=== PATIENT | female | born 1965 | race Caucasian/White ===

== ENCOUNTER 2020-10-05 08:18 | Outpatient (REF) | payer MEDICARE, MEDICAID, SELFPAY | END 2020-10-05 08:19 | disposition home or self-care (01) | LOC: HO.HOSX 08:18 | PROVIDERS: Visit Provider Physician Assistant | DX: Z13.89 Encounter for screening for other disorder (principal) ==

== ENCOUNTER 2020-10-12 08:18 | Outpatient (REF) | payer MEDICARE, MEDICAID, SELFPAY ==
--- NOTE | ~2020-10-12 | XR_ITS ---
EXAMINATION: XR HIP, LEFT CLINICAL INFORMATION: Left hip pain COMPARISON: CT from 10/31/2017 TECHNIQUE: Two views of the left hip. AP view of the pelvis. FINDINGS: There is a total left hip arthroplasty with longstem femoral component. The femoral head component articulates appropriately with the acetabular component. No periprosthetic lucency or fracture. The right hip is well aligned with mild degenerative change. There is subchondral sclerosis with small osteophytes. The pelvic rim is intact. The sacroiliac joints and pubic symphysis are intact. The bowel gas pattern is unremarkable. XR/XR hip LT min 2V IMPRESSION: Total left hip arthroplasty without evidence of failure. Mild degenerative changes of the right hip.
--- NOTE | ~2020-10-12 | XR_ITS ---
EXAMINATION: Bilateral knees frontal standing, and right knee CLINICAL INFORMATION: Reason for Exam M25.569 - Pain in unspecified knee COMPARISON: None available at the time of this dictation. TECHNIQUE: Bilateral frontal standing, right knee lateral patella sunrise view. FINDINGS: BONES: No fracture or dislocation is present. JOINTS: Mild narrowing of joint spaces medial compartment suggest mild DJD. SOFT TISSUE: Normal XR/XR knee RT 3V IMPRESSION: Mild DJD. No joint effusion.
== END 2020-10-12 08:19 | disposition home or self-care (01) ==
LOC: HO.HOSX 08:18
PROVIDERS: Visit Provider Physician Assistant
DX: M25.561 Pain in right knee (principal); M25.552 Pain in left hip; M70.62 Trochanteric bursitis, left hip; M25.70 Osteophyte, unspecified joint
CPT/HCPCS: 73502; 73562; 99212

== ENCOUNTER → 2020-10-26 10:33 | Outpatient (BNVA) | payer MEDICARE, MEDICAID, SELFPAY | PROVIDERS: Visit Provider Orthopaedic Surgery | DX: L72.0 Epidermal cyst (principal) | CPT/HCPCS: 99212 ==

== ENCOUNTER 2020-10-30 08:26 | Day surgery (SDC) | payer MEDICARE, MEDICAID, SELFPAY ==
--- NOTE | 2020-10-30 | ECG_ITS ---
Test Reason : ST DEPRESSIONS Blood Pressure : / mmHG Vent. Rate : 070 BPM Atrial Rate : 070 BPM P-R Int : 156 ms QRS Dur : 088 ms QT Int : 408 ms P-R-T Axes : 021 006 213 degrees QTc Int : 440 ms Normal sinus rhythm Left ventricular hypertrophy with repolarization abnormality Abnormal ECG No previous ECGs available Referred By: Dima Hinojosa Electronically Signed By:NOHELIA MCKINNEY MD
--- NOTE | 2020-10-30 08:11 | HO.ANESPROP2 ---
HPI - Anesthesia Eval Consult details Narrative: right knee cyst PMFSH Active Problems Active Problems: All Active Problems (Updated 10/14/20 @ 21:59 by Alcon Lopez PA-C) Bony callus (Acute) Trochanteric bursitis, left hip (Acute) Left hip pain (Acute) Past Medical History Medical History Asthma Hypertension Social History Social History Current occupational status: disabled Current occupation: right hand Meds Allergies Allergy/AdvReac Type Severity Reaction Status Date / Time SILVER Inhibitors Allergy Severe SWELLING Verified 10/26/20 11:20 [SILVER INHIBITORS] ibuprofen [From MOTRIN] Allergy Severe SWELLING Verified 10/26/20 11:20 prednisone [PREDNISONE] Allergy Severe SWELLING Verified 10/26/20 11:20 Silver Inhibitors Allergy Unknown Unknown Uncoded 10/12/20 12:51 Contrast dye Allergy Unknown Unknown Uncoded 10/12/20 12:51 Motrin Allergy Unknown Unknown Uncoded 10/12/20 12:51 Home Medications Medication Instructions Recorded Confirmed Last Taken Type Unobtainable 10/26/20 10/26/20 Unknown History Exam Exam Date and Time: October 30, 2020 0811 Airway Mallampati Class: II TM Dist: >3cm Neck ROM: Full Heart: rrr+s1s2 Lungs: cta b/l Assessment and Plan Assessment Anesthesia Assessment: Anesthesia Plan Discussed, PAT Visit and Chart Reviewed Final Anesthetic Review NPO: Yes ASA Class: II Final Preanesthetic Review: No Changes in Pt Med Stat, Meds/Allgs Chart Reviewed, Consent Obtained/Reviewed and Anes Risks/Benef Reviewed Patient Risk: Low Procedure Risk: Low Assessment/Block/Sedation in SS: Assess/Block/Sedation-SS Anesthetic Plan Anesthetic Plan: GA and Agree w/ Assess. and Plan Disposition: Standard PACU
[2020-10-30 08:40] VITALS: BP 138/82; PULSE 73; RESP 18; TEMP 36.1; O2SAT 97; BMI 32.8
[2020-10-30] MEDS: Lactated Ringers 1,000 ML 50 ML IV (09:12)
--- NOTE | 2020-10-30 09:15 | PC.NURSE ---
pt placed on monitor. Slight st depressions noted. leads in proper placement. pt denies any discomfort. Dr. Hinojosa informed. ekg ordered. pt darlin well. Dr Hinojosa looked at ekg. ok to procede.
--- NOTE | 2020-10-30 10:51 | MHC.SHP ---
Pre-Procedural Eval Section A The patient is an INPATIENT: No Changes since office visit: Yes Patient answered all questions; No Cold of Flu in the past 2 weeks, No New Medical Problems and No Changes in Medication The History & Physical has been completed within 30 days and I have reviewed it.: Yes Section B Chief Complaint: osteophyte Allergies: Allergies Allergy/AdvReac Type Severity Reaction Status Date / Time SILVER Inhibitors Allergy Severe SWELLING Verified 10/26/20 11:20 [SILVER INHIBITORS] ibuprofen [From MOTRIN] Allergy Severe SWELLING Verified 10/26/20 11:20 prednisone [PREDNISONE] Allergy Severe SWELLING Verified 10/26/20 11:20 Contrast dye Allergy Severe Anaphylaxis Uncoded 10/30/20 09:02 Motrin Allergy Severe Swelling Uncoded 10/30/20 09:02 Plan I have reviewed the history and physical and performed a pertinent physical examination on my patient. No changes have occurred unless specified.
[2020-10-30 11:36] VITALS: BP 135/68; PULSE 70; RESP 16; TEMP 36.2; O2SAT 97
--- NOTE | 2020-10-30 11:44 | PM.OP ---
Brief Operative Note Date of Service: 10/30/20 Pre-op diagnosis: right knee cyst Post-op diagnosis: other (right knee bony fragment and associated ganglion cyst) Procedure: removal of bony fragment and cyst excision Implants: none Surgeon: Russ Gutierrez MD Anesthesia: MAC and local Estimated blood loss (mL): 0 Tourniquet time (min): 23 IV fluids (mL): 500 Pathology: other Condition: stable Disposition: PACU
[2020-10-30] MEDS: oxyCODONE HCl Immed Release 5 MG TABLET 10 MG PO (11:47)
--- NOTE | 2020-10-30 11:49 | W.PM.OPN ---
Operative Note Operative Note Date of Service: 10/30/20 Narrative: Pre-op diagnosis: right knee cyst Post-op diagnosis: other (right knee bony fragment and associated ganglion cyst) Procedure: removal of bony fragment and cyst excision Implants: none Surgeon: Russ Gutierrez MD Anesthesia: MAC and local Estimated blood loss (mL): 0 Tourniquet time (min): 23 IV fluids (mL): 500 Pathology: other Condition: stable Disposition: PACU Procedure in detail: Patient was brought to the operating room and placed supine on the surgical table. She was prepped and draped in standard sterile fashion and a time out was called to identify proper site, proper procedure and IV antibiotics per weight were administered. I began by insufflating the tourniquet to 300 mm Hg. A 1 cm incision was made over the right knee cyst after 1/4 marcaine with epinephrine was administered. Once through the skin I used a Littler's scissor to dissect the stalk of the cyst down to the patellar tendon at its insertion to the patella. There were several small previously avulsed bony fragments that had healed at this site. These were removed along with the cyst wall/fibrous material. The fibers of the patellar tendon were visible but not violated. I irrigated copiously once I felt all bony fragments and extraneous soft tissue was removed. I then closed a soft tissue layer over the are of exposed tendon as the paratenon was no longer present. I then closed the skin with running prolene and skin glue. I injected an additional 6 ml of 1/4 marcaine with epi and then sterile dressings were applied. Patient was awakened from anesthesia and brought to the recovery room in stable condition. There were no known complications.
[2020-10-30 11:51] VITALS: BP 109/67; PULSE 65; RESP 16; O2SAT 99
[2020-10-30 12:06] VITALS: BP 116/70; PULSE 67; RESP 16; O2SAT 99
== END 2020-10-30 13:04 | disposition home or self-care (01) ==
PROVIDERS: PCP Internal Medicine; Visit Provider Orthopaedic Surgery
PROC: (CPT 27347; principal; 2020-10-30 09:50)
DX: M23.41 Loose body in knee, right knee (principal); M25.761 Osteophyte, right knee; M67.461 Ganglion, right knee; Z87.81 Personal history of (healed) traumatic fracture; J45.909 Unspecified asthma, uncomplicated; I10 Essential (primary) hypertension; Z79.82 Long term (current) use of aspirin; Z79.51 Long term (current) use of inhaled steroids; Z79.899 Other long term (current) drug therapy; Z88.8 Allergy status to other drugs, medicaments and biological substances; Z91.041 Radiographic dye allergy status; Z96.642 Presence of left artificial hip joint
CPT/HCPCS: 27347; 88304; 88311; 93005; J0690; J2250; J3010

== ENCOUNTER → 2020-11-16 12:48 | Outpatient (BNVA) | payer MEDICARE, MEDICAID, SELFPAY | PROVIDERS: Visit Provider Physician Assistant | DX: Z47.89 Encounter for other orthopedic aftercare (principal); Z98.890 Other specified postprocedural states | CPT/HCPCS: 99212 ==

== ENCOUNTER → 2021-10-29 12:02 | Outpatient (BNVA) | payer OTHER, MEDICAID, SELFPAY | PROVIDERS: Visit Provider Psychiatry & Neurology Neurology | DX: G43.019 Migraine without aura, intractable, without status migrainosus (principal) | CPT/HCPCS: 64615; 99211; J0585 ==

== ENCOUNTER 2021-11-25 08:51 | Outpatient (REF) | payer OTHER, MEDICARE, MEDICAID, SELFPAY ==
--- NOTE | ~2021-11-25 | XR_ITS ---
EXAMINATION: KNEE X-RAY CLINICAL INFORMATION: Pain COMPARISON: Previous right knee x-ray October 2020 TECHNIQUE: Standing AP view of both knees and lateral and sunrise view of the right knee FINDINGS: Right: Bone alignment is normal. No fracture or dislocation is seen. There is lateral meniscal calcification. There are small osteophytes at the patellofemoral joint. There is an osteophyte at the quadriceps tendon insertion to the patella. There may be slight lateral tilt of the patella. There is no joint effusion. Standing AP view of the left knee is demonstrate an intramedullary jasmin in the left femoral shaft. XR/XR knee standing BI IMPRESSION: Right knee: Mild degenerative changes.
--- NOTE | ~2021-11-25 | XR_ITS ---
EXAMINATION: KNEE X-RAY CLINICAL INFORMATION: Pain COMPARISON: Previous right knee x-ray October 2020 TECHNIQUE: Standing AP view of both knees and lateral and sunrise view of the right knee FINDINGS: Right: Bone alignment is normal. No fracture or dislocation is seen. There is lateral meniscal calcification. There are small osteophytes at the patellofemoral joint. There is an osteophyte at the quadriceps tendon insertion to the patella. There may be slight lateral tilt of the patella. There is no joint effusion. Standing AP view of the left knee is demonstrate an intramedullary jasmin in the left femoral shaft. XR/XR knee RT 2V IMPRESSION: Right knee: Mild degenerative changes.
== END 2021-11-25 08:52 | disposition home or self-care (01) ==
LOC: HO.HOSX 08:51
PROVIDERS: Visit Provider Physician Assistant
DX: S80.01XD Contusion of right knee, subsequent encounter (principal)
CPT/HCPCS: 73560; 73565; 99212

== ENCOUNTER → 2022-02-19 10:56 | Outpatient (BNVA) | payer MEDICARE, MEDICAID, SELFPAY | PROVIDERS: Visit Provider Psychiatry & Neurology Neurology | DX: G43.109 Migraine with aura, not intractable, without status migrainosus (principal); G43.119 Migraine with aura, intractable, without status migrainosus | CPT/HCPCS: 64615; J0585 ==

== ENCOUNTER → 2022-05-14 14:59 | Outpatient (BNVA) | payer MEDICARE, MEDICAID, SELFPAY | PROVIDERS: Visit Provider Psychiatry & Neurology Neurology | DX: G43.119 Migraine with aura, intractable, without status migrainosus (principal); S13.4XXA Sprain of ligaments of cervical spine, initial encounter | CPT/HCPCS: 99212 ==

== ENCOUNTER 2022-05-23 07:15 | Outpatient (REF) | payer MEDICARE, MEDICAID, SELFPAY | END 2022-05-23 07:16 | disposition home or self-care (01) | LOC: HO.HOSX 07:15 | PROVIDERS: Visit Provider Physician Assistant | DX: Z13.89 Encounter for screening for other disorder (principal) ==

== ENCOUNTER → 2022-05-28 11:12 | Outpatient (BNVA) | payer MEDICARE, MEDICAID, SELFPAY | PROVIDERS: PCP Internal Medicine; Visit Provider Nurse Practitioner Family | DX: G43.119 Migraine with aura, intractable, without status migrainosus (principal); S13.4XXA Sprain of ligaments of cervical spine, initial encounter | CPT/HCPCS: 99212 ==

== ENCOUNTER → 2022-06-24 10:17 | Outpatient (BNVA) | payer MEDICARE, MEDICAID, SELFPAY | PROVIDERS: PCP Internal Medicine; Visit Provider Psychiatry & Neurology Neurology | DX: G43.709 Chronic migraine without aura, not intractable, without status migrainosus (principal) | CPT/HCPCS: 64615; 99211; J0585 ==

== ENCOUNTER → 2022-09-22 14:47 | Outpatient (BNVA) | payer MEDICARE, MEDICAID, SELFPAY | PROVIDERS: PCP Internal Medicine; Visit Provider Psychiatry & Neurology Neurology | DX: G43.119 Migraine with aura, intractable, without status migrainosus (principal); G43.109 Migraine with aura, not intractable, without status migrainosus | CPT/HCPCS: 64615; 99211; J0585 ==

== ENCOUNTER 2022-09-29 14:24 | Outpatient (REF) | payer MEDICARE, MEDICAID, SELFPAY | END 2022-09-29 14:25 | disposition home or self-care (01) | LOC: HO.HOSX 14:24 | PROVIDERS: Visit Provider Physician Assistant | DX: Z13.89 Encounter for screening for other disorder (principal) ==

== ENCOUNTER 2023-01-12 12:33 | Outpatient (AMB) | payer MEDICARE, MEDICAID, SELFPAY ==
--- NOTE | 2023-01-12 12:35 | MHC.OFFVIS ---
Intake Vital Signs 01/12/23 12:36 Height 5 ft Weight 167 lb BMI 32.6 BP 130/84 Blood Pressure Location Rt brachial Position Sitting Pulse 68 Pulse Source Pulse Oximeter Pulse Oximetry (%) 98 Oxygen Delivery Method Room Air Intake Visit Reasons: Botox Intake Note: Patient presents for botox injection. Allergies SILVER Inhibitors [SILVER INHIBITORS] Allergy (Severe, Verified 01/12/23 12:37) SWELLING ibuprofen [From MOTRIN] Allergy (Severe, Verified 01/12/23 12:37) SWELLING prednisone [PREDNISONE] Allergy (Severe, Verified 01/12/23 12:37) SWELLING Contrast dye Allergy (Severe, Uncoded 01/12/23 12:37) Anaphylaxis Motrin Allergy (Severe, Uncoded 01/12/23 12:37) Swelling Medication List - Last Reconciled 01/12/23 by Martha Torres MD albuterol sulfate 90 mcg/actuation (ProAir HFA) inhalation cholecalciferol (vitamin D3) 1 cap PO DAILY clonidine HCl 0.1 mg PO DAILY PRN duloxetine mg PO ferrous sulfate 1 tab PO DAILY fluticasone propionate 50 mcg/actuation intranasal hydrochlorothiazide 1 tab PO QAM losartan 1 tab PO DAILY metoprolol tartrate 1 tab PO DAILY omeprazole 1 cap PO DAILY paroxetine HCl 1 tab PO QAM HPI HPI Comments History of Present Illness Details ? 57y/o female comes for treatment of migraines with botox. she had 20-25 headaches days/month prior to starting botox. Since treatment with botox the migraine days have decrease dto 5/month ??? Most frequent reported adverse reactions following injectio n of botox for chronic migraine include neck pain (9%), headache(5%), eyelid ptosis(4%), migraine(4%), muscular weakness(4%), musculuskeletal stiffness(4%), bronchitis(3%), injection site pain (3%), musculoskeletal pain(3%), myalgia(3%), facial paresis(2%), HTN(2%) and muscle spasms(2%) were discussed in detail. ??? Botulinum toxin typeA 200units Lot no [id number] expiration Aug 2025 was diluted with 4 cc of normal saline . ??? Muscles injected- ??? Frontalis 4 sites ??? Procerus 1 site ??? Manager Investment- 2 sites ??? Temporalis- 8 sites ??? Occipitalis- 6 sites ??? Cervical paraspinals- 4 sites ??? Trapezius- 6 sites- 10 units each ??? 5 units each in 31 site ??? Total use- 185units ??? Discarded-15units [facility] Medical History (Updated 01/12/23 @ 13:02 by Martha Torres MD) Asthma Chronic migraine without aura Hypertension Surgical History History of left hip replacement Status post arthroscopy of right shoulder Social History Alcohol intake: never Patient Tobacco Use Status: Never used Tobacco Current occupational status: disabled Current occupation: right hand Physical Exam Vital Signs: Last Vital Signs Pulse 68 01/12/23 12:36 BP 130/84 01/12/23 12:36 Pulse Ox 98 01/12/23 12:36 Oxygen Delivery Method Room Air 01/12/23 12:36 BMI result Body Mass Index 32.6 Const General: cooperative, healthy appearing and no acute distress Orientation/consciousness: patient oriented x3 HEENT Other: tenderness in right parietal and temporal region , pain when she opens her mouth Eyes Pupils: Equal, round and reactive pupils present Neck Other: tenderness in right neck, limited lateral neck movement due to pain. Resp Effort & Inspection: normal respiratory effort and able to speak in complete sentences Cardio Rate: regular rate Peripheral pulses: Peripheral pulses 2+ throughout GI Palpation (GI): Soft to palpation Skin Lesions: no lesions Rashes: no rashes Neuro General: patient oriented x3, tone normal and moves all extremities Cranial nerves: Yes Equal, round and reactive pupils present, Yes Nystagmus not present and Yes Normal facial strength present Gait exam (Neuro): Normal gait present Motor exam (neuro): 5/5 motor strength present throughout and Normal motor muscle tone present throughout Office Procedures Botulinum toxin Injection 16407 - Migraine Procedure code (CPT) selection complete Office Meds onabotulinumtoxinA Performing Provider: Martha Torres MD Administered by: Martha Torres MD on 01/12/23 13:05 Dose Route Admin Location Lot Number Expiration Date [employer] 200 unit subcut [id number] 08/06/25 1299-8105-59 [employer]OTOX Comments: see hpi Assessment & Plan Assessment & Plan (1) Migraine with aura, intractable, without status migrainosus: Code(s): G43.119 - Migraine with aura, intractable, without status migrainosus (2) Chronic migraine with aura: Code(s): G43.109 - Migraine with aura, not intractable, without status migrainosus (3) Chronic migraine without aura: Code(s): G43.709 - Chronic migraine without aura, not intractable, without status migrainosus Plan patient tolerated the procedure well she will call with any side effects Orders: Orders AMB Botulinum toxin Injection Today G43.709 - Chronic migraine without aura, not intractable, without status migrainosus Coding Level of Care Code Est Pt Level 1 (58941) Diagnoses Migraine with aura, intractable, without status migrainosus G43.119 Chronic migraine with aura G43.109 Chronic migraine without aura G43.709 CPT Codes Botox Injection - Botox 3: 76049 - Migraine ([id number])
[2023-01-12 12:36] VITALS: BP 130/84; PULSE 68; O2SAT 98; BMI 32.6
== END 2023-01-12 12:56 | disposition home or self-care (01) ==
LOC: HO.HSMS 12:33
PROVIDERS: PCP Internal Medicine; Visit Provider Psychiatry & Neurology Neurology
DX: G43.709 Chronic migraine without aura, not intractable, without status migrainosus (principal)
CPT/HCPCS: 64615

== ENCOUNTER → 2023-01-12 12:33 | Outpatient (BNVA) | payer MEDICARE, MEDICAID, SELFPAY | PROVIDERS: PCP Internal Medicine; Visit Provider Psychiatry & Neurology Neurology | DX: G43.709 Chronic migraine without aura, not intractable, without status migrainosus (principal); I10 Essential (primary) hypertension | CPT/HCPCS: 64615; J0585 ==

== ENCOUNTER → 2023-04-16 13:05 | Outpatient (BNVA) | payer MEDICARE, MEDICAID, SELFPAY | PROVIDERS: PCP Internal Medicine; Visit Provider Psychiatry & Neurology Neurology | DX: G43.709 Chronic migraine without aura, not intractable, without status migrainosus (principal); G43.119 Migraine with aura, intractable, without status migrainosus | CPT/HCPCS: 64615; 99211; J0585 ==

== ENCOUNTER 2023-04-21 11:11 | Outpatient (REF) | payer MEDICARE, MEDICAID, SELFPAY ==
--- NOTE | ~2023-04-21 | XR_ITS ---
EXAMINATION: XR HIP, RIGHT CLINICAL INFORMATION: Pain in the right hip COMPARISON: 04/19/2018 TECHNIQUE: Two views of the right hip an single view of the pelvis. FINDINGS: There is status post total hip replacement on the left was well positioned visualized portion of the prosthesis. Right hip revealed mild degenerative changes with minimal narrowing of the joint space and marginal spurring of acetabulum. There is no fracture or subluxation and no severe changes of osteoarthritis. XR/XR hip RT w PEL1V IMPRESSION: Mild degenerative changes of the right hip joint
== END 2023-04-21 11:12 | disposition home or self-care (01) ==
LOC: HO.HOSX 11:11
PROVIDERS: Visit Provider Physician Assistant
DX: M16.11 Unilateral primary osteoarthritis, right hip (principal)
CPT/HCPCS: 73502; 99212

== ENCOUNTER 2023-04-21 12:49 | Outpatient (AMB) | payer MEDICARE, MEDICAID, SELFPAY ==
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
[2023-04-21 12:56] VITALS: BMI 32.6
== END 2023-04-21 13:50 | disposition home or self-care (01) ==
PROVIDERS: PCP Internal Medicine; Visit Provider Physician Assistant
DX: M16.11 Unilateral primary osteoarthritis, right hip (principal)
CPT/HCPCS: 99214

== ENCOUNTER 2023-04-30 13:29 | Outpatient (REF) | payer MEDICARE, MEDICAID, SELFPAY ==
--- NOTE | ~2023-04-30 | XR_ITS ---
EXAMINATION: XR HAND, RIGHT CLINICAL INFORMATION: Pain in right hand. Pain along first metacarpal. COMPARISON: None available. TECHNIQUE: PA, lateral, and oblique views of the right hand. FINDINGS: Moderate degenerative changes in the first carpometacarpal and metacarpophalangeal joints with joint space narrowing and hypertrophic change. Degenerative changes in the STT joint. Faint soft tissue calcifications adjacent to scattered metacarpal phalangeal and IP joints. Subtle bowing deformity with slight periosteal/cortical reaction along the mid diaphysis of the fifth metacarpal. XR/XR hand RT min 3V IMPRESSION: Scattered degenerative changes as detailed above. No acute displaced fracture. Recommend follow-up imaging in 10-14 days if fracture is suspected.
== END 2023-04-30 13:30 | disposition home or self-care (01) ==
LOC: HO.HOSX 13:29
PROVIDERS: Visit Provider Physician Assistant
DX: M77.8 Other enthesopathies, not elsewhere classified (principal); M18.11 Unilateral primary osteoarthritis of first carpometacarpal joint, right hand
CPT/HCPCS: 73130; 99212

== ENCOUNTER 2023-04-30 14:19 | Outpatient (AMB) | payer MEDICARE, MEDICAID, SELFPAY ==
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
[2023-04-30 14:45] VITALS: BMI 32.6
== END 2023-04-30 15:18 | disposition home or self-care (01) ==
PROVIDERS: PCP Internal Medicine; Visit Provider Physician Assistant
DX: M77.8 Other enthesopathies, not elsewhere classified (principal); M18.11 Unilateral primary osteoarthritis of first carpometacarpal joint, right hand
CPT/HCPCS: 99214

== ENCOUNTER 2023-06-04 14:57 | Outpatient (AMB) | payer MEDICARE, MEDICAID, SELFPAY ==
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
== END 2023-06-04 15:46 | disposition home or self-care (01) ==
PROVIDERS: PCP Internal Medicine; Visit Provider Orthopaedic Surgery
DX: M16.11 Unilateral primary osteoarthritis, right hip (principal)
CPT/HCPCS: 99214

== ENCOUNTER → 2023-06-04 14:57 | Outpatient (BNVA) | payer MEDICARE, MEDICAID, SELFPAY | PROVIDERS: PCP Internal Medicine; Visit Provider Orthopaedic Surgery | DX: M16.11 Unilateral primary osteoarthritis, right hip (principal) | CPT/HCPCS: 99212 ==

== ENCOUNTER 2023-07-20 12:19 | Outpatient (AMB) | payer MEDICARE, MEDICAID, SELFPAY ==
--- NOTE | 2023-07-20 12:56 | A.OFFVIS_ITS ---
Intake Vital Signs 07/20/23 12:58 Height 5 ft Weight 166 lb 2 oz BMI 32.4 BP 138/90 H Blood Pressure Location Lt brachial Position Sitting Respiration 16 Pulse 73 Pulse Source Pulse Oximeter Pulse Oximetry (%) 98 Oxygen Delivery Method Room Air Intake Visit Reasons: Botox - Confirmed Intake Note: Pt presents to the office for her Botox injections. 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: No Allergies SILVER Inhibitors [SILVER INHIBITORS] Allergy (Severe, Verified 07/20/23 12:57) SWELLING ibuprofen [From MOTRIN] Allergy (Severe, Verified 07/20/23 12:57) SWELLING prednisone [PREDNISONE] Allergy (Severe, Verified 07/20/23 12:57) SWELLING Contrast dye Allergy (Severe, Uncoded 07/20/23 12:57) Anaphylaxis Motrin Allergy (Severe, Uncoded 07/20/23 12:57) Swelling Medication List - Last Reconciled 07/20/23 by Martha Torres MD albuterol sulfate 90 mcg/actuation (ProAir HFA) inhalation celecoxib (Celebrex) 200 mg PO BID 30 days cholecalciferol (vitamin D3) 1 cap PO DAILY clonidine HCl 0.1 mg PO DAILY PRN duloxetine mg PO ferrous sulfate 1 tab PO DAILY fluticasone propionate 50 mcg/actuation intranasal hydrochlorothiazide 1 tab PO QAM losartan 1 tab PO DAILY metoprolol tartrate 1 tab PO DAILY omeprazole 1 cap PO DAILY paroxetine HCl 1 tab PO QAM tizanidine 4 mg PO BID PRN HPI HPI Comments History of Present Illness Details ? 58y/o female comes for treatment of migraines with botox. How many migraine days prior to botox-30 How long do the migraines last-2 days Intensity of migraine-decreased ER visits related to migraine-yes Effectiveness of botox from last two treatment(s) How many migraine days since receiving treatment:4-5 Change? in intensity of migraine?decreased Change in frequency of migraine?decreased Change in use of acute medication for migraine?decreased Change in quality of life?better ER visits related to migraine?none Have at least three months elapsed since last treatment (Last botox date - frequ ency of injections) 04/27 ??? Most frequent reported adverse reactions following injectio n of botox for chronic migraine include neck pain (9%), headache(5%), eyelid ptosis(4%), migraine(4%), muscular weakness(4%), musculuskeletal stiffness(4%), bronchitis(3%), injection site pain (3%), musculoskeletal pain(3%), myalgia(3%), facial paresis(2%), HTN(2%) and muscle spasms(2%) were discussed in detail. ??? Botulinum toxin typeA 200units Lot no [id number] expiration December 2025 was diluted with 4 cc of normal saline . ??? Muscles injected- ??? Frontalis 4 sites ??? Procerus 1 site ??? Vice President- 2 sites ??? Temporalis- 8 sites ??? Occipitalis- 6 sites ??? Cervical paraspinals- 4 sites ??? Trapezius- 6 sites- 10 units each ??? 5 units each in 31 site ??? Total use- 185units ??? Discarded-15units [facility] Medical History Chronic migraine without aura Asthma Hypertension Surgical History Status post arthroscopy of right shoulder History of left hip replacement Social History Alcohol intake: never Patient Tobacco Use Status: Never used Tobacco Current occupational status: disabled Current occupation: right hand Physical Exam Vital Signs: Last Vital Signs Pulse 73 07/20/23 12:58 Resp 16 07/20/23 12:58 BP 138/90 H 07/20/23 12:58 Pulse Ox 98 07/20/23 12:58 Oxygen Delivery Method Room Air 07/20/23 12:58 BMI result Body Mass Index 32.4 Const General: cooperative, healthy appearing and no acute distress Orientation/consciousness: patient oriented x3 HEENT Other: tenderness in right parietal and temporal region , pain when she opens her mouth Eyes Pupils: Equal, round and reactive pupils present Neck Other: tenderness in right neck, limited lateral neck movement due to pain. Resp Effort & Inspection: normal respiratory effort and able to speak in complete sentences Cardio Rate: regular rate Peripheral pulses: Peripheral pulses 2+ throughout GI Palpation (GI): Soft to palpation Skin Lesions: no lesions Rashes: no rashes Neuro General: patient oriented x3, tone normal and moves all extremities Cranial nerves: Yes Equal, round and reactive pupils present, Yes Nystagmus not present and Yes Normal facial strength present Gait exam (Neuro): Normal gait present Motor exam (neuro): 5/5 motor strength present throughout and Normal motor muscle tone present throughout Office Procedures Botulinum toxin Injection 75119 - Migraine Procedure code (CPT) selection complete Office Meds onabotulinumtoxinA 200 unit solution for injection Performing Provider: Martha Torres MD [place] [facility] [place] [facility] Administered by: Martha Torres MD on 07/20/23 13:43 Dose Route Admin Location Dispensed Lot Number Expiration Date [facility] [employer] 185 unit IM 200 units [id number] 12/04/25 6059-9417-78 ALLERGAN/BOTOX Comments: see hpi Assessment & Plan Assessment & Plan (1) Migraine with aura, intractable, without status migrainosus: Code(s): G43.119 - Migraine with aura, intractable, without status migrainosus (2) Chronic migraine with aura: Code(s): G43.109 - Migraine with aura, not intractable, without status migrainosus (3) Chronic migraine without aura: Code(s): G43.709 - Chronic migraine without aura, not intractable, without status migrainosus Plan patient tolerated the procedure well she will call with any side effects Orders: Orders AMB Botulinum toxin Injection Today G43.709 - Chronic migraine without aura, not intractable, without status migrainosus Coding Level of Care Code Est Pt Level 1 (46378) Diagnoses Migraine with aura, intractable, without status migrainosus G43.119 Chronic migraine with aura G43.109 Chronic migraine without aura G43.709 CPT Codes Botox Injection - Botox 3: 05666 - Migraine ([id number])
[2023-07-20 12:58] VITALS: BP 138/90; PULSE 73; RESP 16; O2SAT 98; BMI 32.4
== END 2023-07-20 13:20 | disposition home or self-care (01) ==
PROVIDERS: PCP Internal Medicine; Visit Provider Psychiatry & Neurology Neurology
DX: G43.119 Migraine with aura, intractable, without status migrainosus (principal)
CPT/HCPCS: 64615

== ENCOUNTER → 2023-07-20 12:19 | Outpatient (BNVA) | payer MEDICARE, MEDICAID, SELFPAY | PROVIDERS: PCP Internal Medicine; Visit Provider Psychiatry & Neurology Neurology | DX: G43.119 Migraine with aura, intractable, without status migrainosus (principal); G43.109 Migraine with aura, not intractable, without status migrainosus; G43.709 Chronic migraine without aura, not intractable, without status migrainosus | CPT/HCPCS: 64615; 99211; J0585 ==

== ENCOUNTER → 2023-08-25 10:04 | Outpatient (BNVA) | payer MEDICARE, MEDICAID, SELFPAY | PROVIDERS: PCP Internal Medicine; Visit Provider Orthopaedic Surgery ==

== ENCOUNTER 2023-09-03 13:23 | Outpatient (AMB) | payer MEDICARE, MEDICAID, SELFPAY ==
[2023-09-03 13:31] VITALS: BMI 32.4
--- NOTE | 2023-09-03 13:31 | MHC.OFFVIS ---
Intake Vital Signs 09/03/23 13:31 Height 5 ft Weight 166 lb BMI 32.4 Intake Visit Reasons: Preop- RT NATY 09/16/23 NE Intake Note: uYe is a 58 year old female who presents today for a pre op appointment for her RT NATY 09/16/23 NE. Allergies SILVER Inhibitors [SILVER INHIBITORS] Allergy (Severe, Verified 09/03/23 13:37) SWELLING ibuprofen [From MOTRIN] Allergy (Severe, Verified 09/03/23 13:37) SWELLING prednisone [PREDNISONE] Allergy (Severe, Verified 09/03/23 13:37) SWELLING Contrast dye Allergy (Severe, Uncoded 07/20/23 12:57) Anaphylaxis Motrin Allergy (Severe, Uncoded 07/20/23 12:57) Swelling HPI Preop- RT NATY 09/16/23 NE HPI Details 58-year-old right hand dominant female who presents in the office today for her preoperative history and physical exam prior to a right total hip arthroplasty to be performed on 09/16/[address] Russ Gutierrez. Patient reports she lives by herself. Patient has an allergy history, as follows: -SILVER inhibitors; edema -Ibuprofen; edema -Prednisone; edema -Contrast dye; anaphylaxis -Motrin; edema Patient is currently taking, as follows: -Albuterol sulfate 90 mcg inhalation -Celecoxib 200 mg PO BID -Cholecalciferol 1 cap PO daily -Clonidine HCI 0.1 mg PO Daily PRN -Duloxetine 60 mg PO -Ferrous sulfate 325 mg PO daily -Fluticasone propionate 50 mcg intranasal -Hydrochlorothiazide 25 mg PO QAM -Losartan 100 mg PO daily -Metoprolol tartrate 50 mg PO daily -Omeprazole 40 mg PO daily -Paroxetine HCI 40 mg PO QAM -Riboflavin 400 mg PO daily -Tizanidine 4 mg PO BID PRN -Ubrogepant 50-100 mg PO Once PRN Patient has a medical history, as follows: -Chronic migraine without aura -Asthma -Hypertension -Fibromyalgia Patient has a surgical history, as follows: -Status post arthroscopy of right shoulder -History of left hip replacement [facility] Medical History Chronic migraine without aura Asthma Hypertension Surgical History Status post arthroscopy of right shoulder History of left hip replacement Social History Alcohol intake: never Patient Tobacco Use Status: Never used Tobacco Current occupational status: disabled 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 occupation: right hand Review of Systems Const All systems reviewed & are unremarkable except as noted in HPI and below Physical Exam Vital Signs: BMI result Body Mass Index 32.4 Const General: cooperative, healthy appearing and no acute distress Orientation/consciousness: patient oriented x3 HEENT Head: Yes normal to inspection, Yes normocephalic and Yes atraumatic Eyes General: appearance normal, both eyes and all related structures Neck Neck: Yes normal visual inspection and Yes no lymphadenopathy Resp Effort & Inspection: normal respiratory effort and able to speak in complete sentences Cardio Rate: regular rate Peripheral pulses: Peripheral pulses 2+ throughout GI Inspection: Yes normal to inspection Palpation (GI): Soft to palpation Skin General skin exam: no rashes or lesions noted Lesions: no lesions Rashes: no rashes Neuro General: patient oriented x3 Extrem Other: Right hip: Skin is clean, dry, and intact. No abrasions or lesions. Groin pain with internal and external rotation. Able to dorsiflex and plantarflex. NVI. Psych Mental Status: mental status grossly normal Assessment & Plan Assessment & Plan (1) Osteoarthritis of right hip: Code(s): M16.11 - Unilateral primary osteoarthritis, right hip Qualifiers: Osteoarthritis type: unspecified Qualified Code(s): M16.11 - Unilateral primary osteoarthritis, right hip Plan Ms. Araujo is a 58-year-old right hand dominant female who presents in the office today for her preoperative history and physical exam prior to a right total hip arthroplasty to be performed on 09/16/[address] Russ Gutierrez. Patient reports she lives by herself. Patient has an allergy history, as follows: -SILVER inhibitors; edema -Ibuprofen; edema -Prednisone; edema -Contrast dye; anaphylaxis -Motrin; edema Patient is currently taking, as follows: -Albuterol sulfate 90 mcg inhalation -Celecoxib 200 mg PO BID -Cholecalciferol 1 cap PO daily -Clonidine HCI 0.1 mg PO Daily PRN -Duloxetine 60 mg PO -Ferrous sulfate 325 mg PO daily -Fluticasone propionate 50 mcg intranasal -Hydrochlorothiazide 25 mg PO QAM -Losartan 100 mg PO daily -Metoprolol tartrate 50 mg PO daily -Omeprazole 40 mg PO daily -Paroxetine HCI 40 mg PO QAM -Riboflavin 400 mg PO daily -Tizanidine 4 mg PO BID PRN -Ubrogepant 50-100 mg PO Once PRN Patient has a medical history, as follows: -Chronic migraine without aura -Asthma -Hypertension -Fibromyalgia Patient has a surgical history, as follows: -Status post arthroscopy of right shoulder -History of left hip replacement I discussed in detail the procedure and what to expect pre and post operatively. We discussed the risks, benefits and alternatives to the surgery as well as the rehabilitation course. The risks; which include, but are not limited to infection, bleeding, nerve injury, ongoing pain, swelling, and stiffness, perioperative risk of injury to bones and soft tissues, and blood clots. I have answered all questions and with their understanding they have consented to move forward with a right total hip arthroplasty to be performed on 09/16/[address] Russ Gutierrez. Follow up will be at the post operative appointment on 10/01/2023 at 2:15 pm, or sooner if needed. Patient Instructions: Scribed by Fariba Pearl biomedical engineering aide, for Nevin Oconnor PA-C on 09/03/2023 at 1:27 pm, EST. Coding Level of Care Code Global (53954) Diagnoses Osteoarthritis of right hip, unspecified osteoarthritis type M16.11 Osteoarthritis type: unspecified
== END 2023-09-03 15:26 | disposition home or self-care (01) ==
PROVIDERS: PCP Internal Medicine; Visit Provider Physician Assistant
DX: M16.11 Unilateral primary osteoarthritis, right hip (principal)
CPT/HCPCS: 99024

== ENCOUNTER → 2023-09-03 13:23 | Outpatient (BNVA) | payer MEDICARE, MEDICAID, SELFPAY | PROVIDERS: PCP Internal Medicine; Visit Provider Physician Assistant | DX: Z01.818 Encounter for other preprocedural examination (principal); M16.11 Unilateral primary osteoarthritis, right hip | CPT/HCPCS: 99212 ==

== ENCOUNTER 2023-09-16 10:06 | Inpatient (IN) | payer MEDICARE, MEDICAID, SELFPAY ==
[2023-09-09 12:22] VITALS: BP 156/72; PULSE 98; RESP 18; O2SAT 96; BMI 33.6
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
[2023-09-09 14:23] LABS: MRSA Nasal PCR NEGATIVE (Negative); SA Nasal PCR POSITIVE (Negative)
[2023-09-16] VITALS (11 sets, daily range): BP systolic 140–181; BP diastolic 63–99; PULSE 78–89; RESP 15–20; TEMP 36.2–36.6; O2SAT 93–100; BMI 34.4
--- NOTE | ~2023-09-16 | XR_ITS ---
EXAMINATION: XR PELVIS CLINICAL INFORMATION: Right total hip arthroplasty COMPARISON: Right hip 04/21/2023, left hip 10/12/2020 TECHNIQUE: AP supine portable view of the pelvis. FINDINGS: There has been a right total hip replacement with the acetabular component secured with a single screw. No evidence of periprosthetic lucency or fracture. The hardware appears intact. There is partial visualization of a left total hip replacement with the acetabular component secured with 3 screws. This appears well-positioned without evidence of periprosthetic lucency or fracture.. Sacroiliac joints and pubic symphysis are intact. A few small calcifications in the pelvis are consistent with phleboliths. XR/XR pelvis 1-2V IMPRESSION: Bilateral total hip replacements without evidence of hardware complication.
[2023-09-16] MEDS: oxyCODONE HCl ER 10 MG TAB.ER.12H PO ×2 (10:59→20:23)
[2023-09-16] MEDS: Lactated Ringers 1,000 ML 100 ML IVCONT ×2 (11:12→14:44)
--- NOTE | 2023-09-16 11:53 | MHC.SHP ---
Pre-Procedural Eval Section A - 24 Hr Update-Section A only Date of Service: 09/16/23 The patient is an INPATIENT: No Changes since office visit: No Cold of Flu in the past 2 weeks, No New Medical Problems, No Changes in Medication and No Patient answered all questions The patient has been examined within 24 hours of the surgical procedure. The History & Physical has been completed within 30 days and I have reviewed it.: Yes Section B - Complete if H&P > 30 days Chief Complaint: RT niesha Allergies: Allergies Allergy/AdvReac Type Severity Reaction Status Date / Time SILVER Inhibitors Allergy Severe SWELLING Verified 09/03/23 13:37 [SILVER INHIBITORS] ibuprofen [From MOTRIN] Allergy Severe SWELLING Verified 09/03/23 13:37 prednisone [PREDNISONE] Allergy Severe SWELLING Verified 09/03/23 13:37 Contrast dye Allergy Severe Anaphylaxis Uncoded 07/20/23 12:57 Motrin Allergy Severe Swelling Uncoded 07/20/23 12:57 Plan I have reviewed the history and physical and performed a pertinent physical examination on my patient. No changes have occurred unless specified. Time Spent With Patient Time: Total time managing care of this patient today ____ minutes.
--- NOTE | 2023-09-16 14:07 | PM.OP ---
Brief Operative Note Date of Service: 09/16/23 Pre-op diagnosis: right hip OA Post-op diagnosis: same Procedure: Right NATY Implants: Mary Kate Trident 2 #48 Accolade2 #2 132 with -4 32 ceramic femoral head Surgeon: Russ Gutierrez MD Anesthesia: GETA and local Was an [employer] Machine Tender used for this Procedure?: Yes [employer] Machine Tender: Alcon Lopez Estimated blood loss (mL): 200 IV fluids (mL): 850 Pathology: other Condition: stable Disposition: PACU
[2023-09-16] MEDS: oxyCODONE HCl Immed Release 5 MG TABLET PO ×2 (15:25→20:22)
[2023-09-16] MEDS: HYDROmorphone HCl 0.5 MG/0.5 ML SYRINGE 0.25 MG IVPUSH ×2 (16:29→23:41)
--- NOTE | 2023-09-16 17:12 | PHA.MEDREC ---
Pharmacy Consult ? Medication Reconciliation Pharmacy has reviewed the medication reconciliation completed by nursing. Dianelys Hollis, ServandoD
--- NOTE | 2023-09-16 17:29 | HO.PM.IMCN ---
History of Present Illness Data of Consult Service Date: 09/16/23 Requesting physician: Alcon Lopez Primary Care Provider: DO GRAEME Horvath Reason for consult: medical management 58-year-old female with history of hypertension, mood disorder, mild intermittent asthma, fibromyalgia admitted to Orthopedic surgery for management of osteoarthritis of the right hip s/p right NATY with consult placed to hospitalist service for medical management. She reports pain in the R hip but otherwise has no complaints. She is sitting up in bed eating dinner. Denies etoh use, cigarette smoking or illicit drug/MJ use. Review of Systems Review of Systems: General: No fevers, malaise, unintentional weight loss HEENT: No blurred vision, diplopia. No sore throat, nasal congestion, rhinorrhea, sinus pain, ear pain Cardiovascular: No chest pain, palpitations, or leg edema Respiratory: No shortness of breath, wheezing, cough GI: No abdominal pain, nausea, vomiting, diarrhea, constipation, melena, hematochezia : No dysuria, hematuria, increased urinary frequency, decreased urinary output MSK: No myalgia, back pain. +R hip pain Neuro: No headaches, weakness, paresthesias Skin: No rashes or lesions PMFSH Medical History Arthritis Back pain Vitamin D deficiency Anemia Peptic ulcer GERD (gastroesophageal reflux disease) Habitual snoring Fibromyalgia Anxiety Chronic migraine without aura Asthma Hypertension Surgical History History of back surgery H/O colonoscopy Status post bilateral breast reduction Status post arthroscopy of right shoulder History of left hip replacement Social History Household Members: None Housing: Apartment Are you a primary healthcare applications analyst to a significant other at home: No Do you presently have visiting nurse or other home services: No Alcohol intake: never Patient Tobacco Use Status: Never used Tobacco Use of substances other than those prescribed or required for medical reasons: No Have you been hit, kicked, punched, or otherwise hurt by someone within the past year? If so, by whom?: No Do you feel safe in your current relationship?: No Current Relationship Is there a partner from a previous relationship who is making you feel unsafe now?: No Are you made to feel afraid or neglected: No Advance Directives: No Advance Directives Information Provided: Yes Advance Directives on File: No Do you have thoughts of harming others: None Do you have a plan to hurt others: No Plan Recently lost weight without trying: No Eating poorly because of decreased appetite: No Nutrition Risks: No Nutritional Risk Patient : No : No Poor oral hygiene: No Current occupational status: disabled Current occupation: right hand Meds Allergies Allergy/AdvReac Type Severity Reaction Status Date / Time SILVER Inhibitors Allergy Severe SWELLING Verified 09/03/23 13:37 [SILVER INHIBITORS] ibuprofen [From MOTRIN] Allergy Severe SWELLING Verified 09/03/23 13:37 prednisone [PREDNISONE] Allergy Severe SWELLING Verified 09/03/23 13:37 Contrast dye Allergy Severe Anaphylaxis Uncoded 07/20/23 12:57 Motrin Allergy Severe Swelling Uncoded 07/20/23 12:57 Active Medications: Current Medications Acetaminophen (Acetaminophen 325 Mg Tablet) 650 mg PO Q6H PRN PRN Reason: Pain, Mild (Pain Scale 1-3) Albuterol Sulfate (Albuterol Sulfate 90 Mcg 8 Gm Inhaler) 2 puff INHALE QID PRN PRN Reason: Shortness Of Breath Or Wheezing Celecoxib (Celecoxib 200 Mg Capsule) 200 mg PO BID [facility] Clonidine HCl (Clonidine Hcl 0.1 Mg Tablet) 0.1 mg PO BEDTIME PRN; Protocol PRN Reason: Anxiety Docusate Sodium (Docusate Sodium 100 Mg Capsule) 100 mg PO BID [facility] Duloxetine HCl (Duloxetine Hcl 60 Mg Capsule.) 60 mg PO BEDTIME [facility] Ferrous Sulfate (Ferrous Sulfate 324 Mg Tablet.) 324 mg PO Q2D [facility] Fluticasone Propionate (Fluticasone Propionate Nasal 16 Gm Deville) 1 spray NOSTRIL-B BEDTIME [facility] Hydromorphone HCl (Hydromorphone Hcl 0.5 Mg/0.5 Ml Syringe) 0.25 mg IVPUSH Q4H PRN; Protocol PRN Reason: Pain, Severe (Pain Scale 7-10) Last Admin: 09/16/23 16:29 Dose: 0.25 mg Lactated Ringer's (Lr) 1,000 mls @ 100 mls/hr IVCONT .Q10H EDUARDO Stop: 09/17/23 14:09 Last Admin: 09/16/23 14:44 Dose: 100 mls/hr Cefazolin Sodium/Dextrose (Ancef) 2 gm in 50 mls @ 100 mls/hr IV POSTOP ONE Stop: 09/16/23 18:29 Metoprolol Tartrate (Metoprolol Tartrate 50 Mg Tablet) 50 mg PO DAILY [facility]; Protocol Omeprazole (Omeprazole 40 Mg Capsule.Dr) 40 mg PO DAILY@0630 [facility] Ondansetron HCl (Ondansetron Hcl 4 Mg/2 Ml Vial) 4 mg IVPUSH Q8H PRN PRN Reason: Nausea and Vomiting Oxycodone HCl (Oxycodone Hcl Immed Release 5 Mg Tablet) 5 mg PO Q4H PRN PRN Reason: Pain, Moderate(Pain Scale 4-6) Oxycodone HCl (Oxycodone Hcl Er 10 Mg Tab.Er.12h) 10 mg PO BID [facility] Paroxetine HCl (Paroxetine Hcl 40 Mg Tablet) 40 mg PO DAILY [facility] Sodium Chloride (0.9 % Sodium Chloride Flush 3 Ml Syringe) 3 ml IVFLUSH QSHIFT [facility] Last Admin: 09/16/23 16:01 Dose: Not Given Tizanidine HCl (Tizanidine Hcl 4 Mg Tablet) 4 mg PO BID PRN PRN Reason: Muscle Spasm Home Medications Medication Instructions Recorded Confirmed Last Taken Type albuterol sulfate 90 mcg/actuation 2 puff inhalation QID PRN 10/30/20 09/09/23 Unknown History aerosol inhaler (ProAir HFA) Shortness Of Breath Or Wheezing cholecalciferol (vitamin D3) 50 1 cap PO DAILY 10/30/20 09/09/23 09/15/23 History mcg (2,000 unit) capsule ferrous sulfate 325 mg (65 mg 1 tab PO Q OTHER DAY 10/30/20 09/09/23 09/15/23 History iron) tablet hydrochlorothiazide 25 mg tablet 1 tab PO QAM 10/30/20 09/09/23 09/15/23 History losartan 100 mg tablet 100 mg PO DAILY 10/30/20 09/16/23 09/15/23 History metoprolol tartrate 50 mg tablet 1 tab PO DAILY 10/30/20 09/09/23 09/16/23 09:05 History omeprazole 40 mg capsule,delayed 1 cap PO DAILY 10/30/20 09/09/23 09/16/23 09:05 History release clonidine HCl 0.1 mg tablet 0.1 mg PO BEDTIME PRN Anxiety 05/14/22 09/09/23 09/15/23 History duloxetine 60 mg capsule,delayed 60 mg PO BEDTIME 05/14/22 09/09/23 09/15/23 History release fluticasone propionate 50 1 spray intranasal BEDTIME 05/28/22 09/09/23 09/15/23 History mcg/actuation nasal spray,suspension tizanidine 4 mg capsule 4 mg PO BID PRN Muscle Spasm 07/20/23 09/09/23 Unknown History paroxetine HCl 20 mg tablet 20 mg PO DAILY 09/16/23 09/16/23 09/16/23 09:05 History Physical Exam Vital Signs and Narrative: Vital Signs: Last Vital Signs Temp 97.6 F 09/16/23 16:00 Pulse 86 09/16/23 16:00 Resp 16 09/16/23 16:00 BP 161/91 H 09/16/23 16:00 Pulse Ox 93 09/16/23 16:00 O2 Del Method Room Air 09/16/23 15:18 O2 Flow Rate 2 09/16/23 15:03 BMI result Body Mass Index 34.4 Constitutional - Awake and Alert, No apparent distress Eyes - PERRLA, EOMI Cardiovascular - S1S2, RRR, No edema Respiratory - Normal lung expansion, Normal respiratory effort, No respiratory distress, CTA bilaterally Gastrointestinal - NT / ND; +BS; No rebound or guarding Extremities - no calf tenderness bilaterally, no swelling Skin - Warm/Dry Neurological - Alert & oriented x3 Psychological - Appropriate affect Assessment and Plan (1) Osteoarthritis of right hip: Qualifiers: Osteoarthritis type: unspecified Qualified Code(s): M16.11 - Unilateral primary osteoarthritis, right hip Status: Acute Plan 58-year-old female with history of hypertension, mood disorder, mild intermittent asthma, fibromyalgia admitted to Orthopedic surgery for management of osteoarthritis of the right hip s/p right NATY with consult placed to hospitalist service for medical management. # osteoarthritis right hip s/p right NATY pod 0 -plan per orthopedic surgery # hypertension -mildly hypertensive at 161/91 -resume losartan, metoprolol. Resume hydrochlorothiazide on discharge # mood disorder/fibromyalgia -continue duloxetine, tizanidine, paroxetine. Clonidine p.r.n. bedtime # mild intermittent asthma -no acute exacerbation -albuterol p.r.n. Thank you for allowing me to participate in this consult. Signing off at this time. Please do not hesitate to call for further questions.
[2023-09-16] MEDS: ceFAZolin Sodium/Dextrose,Iso 2 GM/50 ML PIGGYBACK IV (18:02)
--- NOTE | 2023-09-16 18:42 | PC.NURSE ---
Pt with one episode of diarrhea this shift
[2023-09-16] MEDS: DULoxetine HCl 60 MG CAPSULE.DR PO (20:22)
[2023-09-16] MEDS: Docusate Sodium 100 MG CAPSULE PO (20:22)
[2023-09-16] MEDS: Fluticasone Propionate Nasal 16 GM SPRAY 1 SPRAY NOSTRIL-B (20:23)
[2023-09-17] MEDS: Lactated Ringers 1,000 ML 100 ML IVCONT ×2 (00:20→09:11)
[2023-09-17] MEDS: oxyCODONE HCl Immed Release 5 MG TABLET PO ×3 (03:07→21:45)
[2023-09-17 04:00] VITALS: BP 169/86; PULSE 84; RESP 16; TEMP 36.4; O2SAT 97
--- NOTE | 2023-09-17 04:59 | PC.NURSE ---
pt c/o pain 7-03/15, given oxycodone 5mg and dilaudid 0.25 mg. by eMar, but according to pt oxycodone 5mg is not working well. pt said better to have dilaudid. throughout the night pt went to br. with out any complain with walker; needed assist with IV pole. active ROM, CMS +, educated how to use I.S. after using I.S lung sounds improved. will cont. monitor.
[2023-09-17] MEDS: HYDROmorphone HCl 0.5 MG/0.5 ML SYRINGE 0.25 MG IVPUSH ×5 (05:37→23:20)
[2023-09-17] MEDS: Omeprazole 40 MG CAPSULE.DR PO (05:37)
[2023-09-17 06:33] LABS: MANUAL DIFF FLAG NO
[2023-09-17 06:35] LABS: Basophils Percent Auto 0.1 % (0-2); Hematocrit 29.5 % (37.0-47.0); Hemoglobin 9.9 g/dl (12.0-16.0); Imm Gran Abs Auto 0.06 X10*3/uL (0.00-0.03); Imm Gran Pct Auto 0.4 % (0.0-0.4); Lymphocytes Absolute Auto 1.8 X10*3/uL (1.2-4.9); Lymphocytes Percent Auto 11.1 % (20-40); Mean Corpuscular HGB Conc 33.6 g/dl (31.0-35.0); Mean Corpuscular Hemoglobin 29.6 pg (27.0-33.0); Mean Corpuscular Volume 88.1 fL (80.0-98.0); Mean Platelet Volume 11.1 fL (9.4-12.3); Monocytes Percent Auto 6.5 % (2-11); Neutrophils Percent Auto 81.9 % (45-73); Platelet Count 190 X10*3/uL (160-400); Red Blood Count 3.35 X10*6/uL (4.20-5.50); White Blood Count 15.9 X10*3/uL (4.8-10.8)
[2023-09-17 06:49] LABS: Anion Gap 11 (12-20); Blood Urea Nitrogen 11 mg/dL (9-16); Calcium 9.2 mg/dL (8.4-10.2); Carbon Dioxide 28 mmol/L (22-29); Chloride 105 mmol/L (96-108); Creatinine Clr Calc Pharmacy 83.6; Estimated Glomerular Filt Rate > 60; Glucose Fasting 108 mg/dL (60-99); Sodium 140 mmol/L (135-145)
[2023-09-17 07:41] VITALS: BP 139/74; PULSE 95; RESP 16; TEMP 36.4; O2SAT 95
[2023-09-17 08:35] VITALS: BP 139/74; PULSE 95; O2SAT 95
--- NOTE | 2023-09-17 08:59 | P.PNOP_ITS ---
Subjective Subjective Date of Service: 09/17/23 Interval history: POD 1 s/p RT NATY no overnight events out of bed to chair pain is tolerable denies sob, cp, palpitations Physical Exam Vital Signs: Vital Signs: Last Vital Signs Temp 97.5 F 09/17/23 07:41 Pulse 95 09/17/23 08:35 Resp 16 09/17/23 07:41 BP 139/74 09/17/23 08:35 Pulse Ox 95 09/17/23 08:35 O2 Del Method Room Air 09/17/23 07:41 O2 Flow Rate 2 09/16/23 15:03 BMI result Body Mass Index 34.4 Const: General: cooperative, healthy appearing and no acute distress Resp: Effort & Inspection: normal respiratory effort and able to speak in complete sentences Cardio: Rate: regular rate Peripheral pulses: Peripheral pulses 2+ throughout GI: Palpation (GI): Soft to palpation Skin: General skin exam: no rashes or lesions noted Extrem: Other: incision clean dry and intact. Matias intact. No erythema or effusion. Calf supple nontender. Neurovascularly intact. Procedures Date of Service Date of Service: 09/17/23 Progress Note: A&P Assessment and plan (1) History of total right hip replacement: Status: Acute Assessment and Plan: * Continue pain mgmnt * Begin lovenox for dvt ppx * begin PT for RT NATY post. precautions * Dispo planning-Pending PT eval, pain mgmnt Need for continued inpatient stay: Time Spent With Patient Time: Total time managing care of this patient today ____ minutes. Quality Stroke Does the patient have a stroke diagnosis?: No VTE Prior VTE?: No VTE Risk Level:: Surgical - very high VTE Device Contraindication: N/A - Device Ordered VTE Drug Contraindication: N/A - Med Ordered
[2023-09-17] MEDS: Metoprolol Tartrate 50 MG TABLET PO (09:10)
[2023-09-17] MEDS: oxyCODONE HCl ER 10 MG TAB.ER.12H PO ×2 (09:10→21:45)
[2023-09-17] MEDS: Celecoxib 200 MG CAPSULE PO (09:10)
[2023-09-17] MEDS: PARoxetine HCL 40 MG TABLET PO (09:10)
[2023-09-17] MEDS: Docusate Sodium 100 MG CAPSULE PO ×2 (09:10→21:45)
[2023-09-17] MEDS: Losartan Potassium 50 MG TABLET 100 MG PO (09:11)
--- NOTE | 2023-09-17 09:43 | MHC.CM.PN ---
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 HAS WINDOWS DESKTOP SUPPORT 1 HOUR DAILY. HAS HCP AT HOME BUT WOULD LIKE TO DO NEW ONE . PCP DR. REYES. DP: HOME WITH NEW [facility] FOR P.T. PT IS ABLE TO SELF ADMINISTER LOVENOX SHE HAS HAD TO IN THE PAST. PT HAS OWN RIDE HOME. CM WILL CONTINUE TO FOLLOW FOR ANY CHANGE IN DC NEEDS/PLAN.
[2023-09-17] MEDS: Enoxaparin Sodium 40 MG/0.4 ML SYRINGE SUBCUT (11:56)
--- NOTE | 2023-09-17 13:53 | HO.POSTANES ---
Post Anesthesia Evaluation Post Anesthesia Evaluation Date of Service: 09/17/23 Vital Signs: Vital Signs Temp Pulse Resp BP Pulse Ox O2 Del Method 09/17/23 08:35 95 139/74 95 09/17/23 07:41 97.5 F 95 16 139/74 95 Room Air 09/17/23 04:00 97.5 F 84 16 169/86 H 97 Room Air Anesthesia: General Mental Status: Awake Pain Control: Satisfactory Nausea/Vomiting: None Hydration: Adequate Anesthesia-Related Issues: No Anes. Related Issues
[2023-09-17 14:05] VITALS: BP 139/74; PULSE 95; O2SAT 95
[2023-09-17 15:32] VITALS: BP 151/70; PULSE 92; RESP 18; TEMP 36.3; O2SAT 97
--- NOTE | 2023-09-17 16:00 | PC.NURSE ---
Addendum entered by Anival Oro RN 09/17/23 17:51: pt c/o chest pain, informed and assessed pt at bedside Addendum entered by Anival Oro RN 09/17/23 16:05: post void 101ml. pt stated she will continue to attempt to void Original Note: pt voided in bathroom multiple times throughout this shift. bladder scan this afternoon was ~480ml. pt then voided 200ml afterwards. will perform post void residual. pt informed she is retaining and will need to be catherized if volume is high and she is unable to empty her bladder
--- NOTE | 2023-09-17 17:00 | ECG_ITS ---
Test Reason : chest pain, allergy Blood Pressure : / mmHG Vent. Rate : 090 BPM Atrial Rate : 090 BPM P-R Int : 152 ms QRS Dur : 096 ms QT Int : 342 ms P-R-T Axes : 037 015 165 degrees QTc Int : 418 ms Normal sinus rhythm Minimal voltage criteria for LVH, may be normal variant ( Riky product ) Nonspecific T wave abnormality Abnormal ECG When compared with ECG of 30-OCT-2020 08:01, T wave inversion no longer evident in Anterior leads Referred By: Alcon Lopez Electronically Signed By:NOHELIA MCKINNEY MD
--- NOTE | 2023-09-17 17:40 | PM.EVENT ---
Event Note Date of Service: 09/17/23 Event Note: called by JYOTI Yarbrough re: pt report of moderate mid-sternal chest pain, 5/10 intensity pt states pain actually started this AM. not worse with activity. worse with palpation of the chest wall. non-radiating. sharp/stabbing in quality, no pressure sensation. EKG NSR, no ischemic changes suspect MSK pain- will apply lidocaine patch will cycle Tn-I x2 Time Spent With Patient Time: Total time managing care of this patient today ____ minutes.
[2023-09-17 18:12] LABS: Troponin-I High Sensitivity < 2.7 ng/L (<3.5-17.0)
[2023-09-17] MEDS: Lidocaine 4 % Patch ADH..PATCH 1 PATCH TRANSDERMA (19:28)
[2023-09-17] MEDS: 0.9 % Sodium Chloride Flush 3 ML SYRINGE IVFLUSH ×2 (19:29→21:46)
[2023-09-17 19:36] VITALS: BP 141/69; PULSE 90; RESP 18; TEMP 36.4; O2SAT 99
[2023-09-17] MEDS: DULoxetine HCl 60 MG CAPSULE.DR PO (21:45)
[2023-09-17] MEDS: cloNIDine HCL 0.1 MG TABLET PO (21:45)
[2023-09-17] MEDS: Fluticasone Propionate Nasal 16 GM SPRAY 1 SPRAY NOSTRIL-B (21:48)
[2023-09-17 22:15] LABS: Troponin-I High Sensitivity < 2.7 ng/L (<3.5-17.0)
[2023-09-18 03:28] VITALS: BP 125/60; PULSE 89; RESP 16; TEMP 36.4; O2SAT 95
[2023-09-18] MEDS: HYDROmorphone HCl 0.5 MG/0.5 ML SYRINGE 0.25 MG IVPUSH (03:33)
[2023-09-18] MEDS: Omeprazole 40 MG CAPSULE.DR PO (05:35)
[2023-09-18 05:55] LABS: MANUAL DIFF FLAG NO
[2023-09-18 06:10] LABS: Basophils Percent Auto 0.2 % (0-2); Eosinophils Absolute Auto 0.1 X10*3/uL (0.0-0.4); Eosinophils Percent Auto 0.5 % (0-4); Hematocrit 27.6 % (37.0-47.0); Imm Gran Abs Auto 0.05 X10*3/uL (0.00-0.03); Imm Gran Pct Auto 0.5 % (0.0-0.4); Lymphocytes Absolute Auto 2.4 X10*3/uL (1.2-4.9); Lymphocytes Percent Auto 22.7 % (20-40); Mean Corpuscular HGB Conc 32.6 g/dl (31.0-35.0); Mean Corpuscular Hemoglobin 29.4 pg (27.0-33.0); Mean Corpuscular Volume 90.2 fL (80.0-98.0); Mean Platelet Volume 11.7 fL (9.4-12.3); Monocytes Absolute Auto 1.1 X10*3/uL (0.1-1.2); Monocytes Percent Auto 10.7 % (2-11); Neutrophils Absolute Auto 6.8 x10*3/uL (2.0-8.3); Neutrophils Percent Auto 65.4 % (45-73); Platelet Count 161 X10*3/uL (160-400); Red Blood Count 3.06 X10*6/uL (4.20-5.50); Red Cell Distribution Width 14.2 % (11.0-16.0); White Blood Count 10.4 X10*3/uL (4.8-10.8)
--- NOTE | 2023-09-18 06:12 | PC.NURSE ---
throughout the night pt asking for the dilaudid q4 timely manner. this nurse provided by eMar. pt went to BR twice without any problem; urinated well, clear, and yellow. she said ready to go home. will continue monitor.
[2023-09-18 06:20] LABS: Anion Gap 8 (12-20); Blood Urea Nitrogen 11 mg/dL (9-16); Calcium 8.6 mg/dL (8.4-10.2); Carbon Dioxide 31 mmol/L (22-29); Chloride 104 mmol/L (96-108); Creatinine Clr Calc Pharmacy 73.6; Estimated Glomerular Filt Rate > 60; Glucose Fasting 112 mg/dL (60-99); Potassium 3.5 mmol/L (3.3-5.1); Sodium 139 mmol/L (135-145)
--- NOTE | 2023-09-18 06:31 | PC.NURSE ---
pt told me Celecoxib (CeleBrex) has allergy reaction to her whole body swell, therefore, not provided and edit to Allergy/Adv. in the system.
[2023-09-18] MEDS: Metoprolol Tartrate 50 MG TABLET PO (07:07)
[2023-09-18] MEDS: oxyCODONE HCl Immed Release 5 MG TABLET PO (07:07)
[2023-09-18] MEDS: oxyCODONE HCl ER 10 MG TAB.ER.12H PO (07:07)
[2023-09-18] MEDS: Losartan Potassium 50 MG TABLET 100 MG PO (07:07)
[2023-09-18] MEDS: PARoxetine HCL 40 MG TABLET PO (07:07)
[2023-09-18] MEDS: Docusate Sodium 100 MG CAPSULE PO (07:07)
[2023-09-18] MEDS: Lidocaine 4 % Patch ADH..PATCH 1 PATCH TRANSDERMA (07:08)
[2023-09-18 07:42] VITALS: BP 117/64; PULSE 85; RESP 16; TEMP 37.1; O2SAT 94
--- NOTE | 2023-09-18 08:34 | P.DS_ITS ---
DS: Providers Provider Date of Service: 09/18/23 Date of admission: 09/16/23 10:06 Primary care physician: Mary Traylor DO Consults: 09/16/23 15:49 Consult to Hospitalist Routine Comment: Consulting Provider: Hospitalist Reason For Exam: medical management DS: Transfer Hospital Acceptance Reason for Transfer: The patient underwent a successful Right total hip arthroplasty on 09/15/[address] Gutierrez , was transferred to PACU and then to the floor to recover. During their stay, their vitals were stable, afebrile at 98.8 . Labs were unremarkable, H/H 9.0/27.6. POD 1 she was started on lovenox once a day for DVT ppx, they also received Physical Therapy services twice a day. Physical therapy should include gait training, core and lumbar strength, glute strength. Posterior precautions intact. WBAT. Prior to discharge, her dressing was changed, incision clean dry and intact, new Aquacel dressing applied. The Aquacel dressing should remain intact and dry at all times. Any concerns with the dressing, please contact orthopedic office. No showering. The plan is to be discharged home with [facility] DS: Diagnosis Discharge Diagnosis (1) History of total right hip replacement: Status: Acute DS: Summary Time Attestation Discharge Coordination Time (in mins): 30 min Quality: Safe Use of Opioids Does Pt have an Active Cancer Diagnosis on the Problem List?: No Quality: Stroke Does the patient have a stroke diagnosis?: No Physical Exam Vital Signs: Vital Signs: Last Vital Signs Temp 98.8 F 09/18/23 07:42 Pulse 85 09/18/23 07:42 Resp 16 09/18/23 07:42 BP 117/64 09/18/23 07:42 Pulse Ox 94 09/18/23 07:42 O2 Del Method Room Air 09/18/23 07:42 O2 Flow Rate 2 09/16/23 15:03 BMI result Body Mass Index 34.4 DS: Data Data Completed and Pending Pending studies at discharge: Pending at discharge 09/16/23 13:44 Surgical [PTH] Routine Labs on day of discharge: Laboratory Results - last 24 hr 09/17/23 09/17/23 09/18/23 17:42 21:02 05:01 WBC 10.4 RBC 3.06 L Hgb 9.0 L Hct 27.6 L MCV 90.2 MCH 29.4 MCHC 32.6 RDW 14.2 Plt Count 161 MPV 11.7 Immature Gran % (Auto) 0.5 H Neut % (Auto) 65.4 Lymph % (Auto) 22.7 Taliaferro % (Auto) 10.7 Eos % (Auto) 0.5 Baso % (Auto) 0.2 Lymph # (Auto) 2.4 Taliaferro # (Auto) 1.1 Eos # (Auto) 0.1 Baso # (Auto) 0.0 Abs Immat Gran (auto) 0.05 H Absolute Neuts (auto) 6.8 Absolute Nucleated RBC 0.000 Nucleated RBC % (auto) 0.0 Sodium 139 Potassium 3.5 Chloride 104 Carbon Dioxide 31 H Anion Gap 8 L BUN 11 Creatinine 0.76 Estim Creat Clear Calc 73.6 Estimated GFR > 60 Fasting Glucose 112 H Calcium 8.6 D Troponin I High Sens < 2.7 < 2.7 Discharge Plan Discharge Anticipated Discharge Date/Time: 09/18/23 08:32 Patient Disposition: Home Health Service Discharge Diagnosis: rt niesha Referrals: Nevin Oconnor PA-C [Physician Shells Inspector] - 2 Weeks (10/01/23 14:15 [facility] Nevin Oconnor PA-C) Discharge Medications: New docusate sodium 100 mg Capsule 100 mg PO BID 14 Days Qty: 28 0RF celecoxib 200 mg Capsule 200 mg PO BID 30 Days Qty: 60 0RF oxycodone 5 mg Tablet 5 mg PO Q4H PRN (Reason: Pain, Moderate(Pain Scale 4-6)) 7 Days Qty: 42 0RF Rx Instructions: Partial Fill upon patient request. acetaminophen 325 mg Tablet 650 mg PO Q6H PRN (Reason: Pain, Mild (Pain Scale 1-3)) 30 Days Qty: 240 0RF enoxaparin 40 mg/0.4 mL Syringe 40 mg subcut Q24H 42 Days Qty: 16.8 0RF Continued omeprazole 40 mg capsule,delayed release(DR/EC) 1 cap PO DAILY ferrous sulfate 325 mg (65 mg iron) tablet 1 tab PO Q OTHER DAY metoprolol tartrate 50 mg tablet 1 tab PO DAILY hydrochlorothiazide 25 mg tablet 1 tab PO QAM albuterol sulfate [ProAir HFA] 90 mcg/actuation HFA aerosol inhaler 2 puff inhalation QID PRN (Reason: Shortness Of Breath Or Wheezing) losartan 100 mg tablet 100 mg PO DAILY cholecalciferol (vitamin D3) 50 mcg (2,000 unit) capsule 1 cap PO DAILY paroxetine HCl 20 mg tablet 20 mg PO DAILY clonidine HCl 0.1 mg tablet 0.1 mg PO BEDTIME PRN (Reason: Anxiety) duloxetine 60 mg capsule,delayed release(DR/EC) 60 mg PO BEDTIME fluticasone propionate 50 mcg/actuation spray,suspension 1 spray intranasal BEDTIME tizanidine 4 mg capsule 4 mg PO BID PRN (Reason: Muscle Spasm) Discharge Orders: Discharge Order (Routine); Ordered 09/18/23 Ordered By: Alcon Lopez Diet: Regular diet Activity on Discharge: Use cane or walker Stand Alone Forms: Patient Portal Discharge page Care Plan Goals: Restore function of joint Health Concerns: none Plan of Treatment: Physical Therapy Pain management DVT prophylaxis Assessment: * Physical Therapy for Total hip arthroplasty: wbat, posterior precautions, gait training, ROM, strength * Limit stair climbing * No showering, no tub bath-keep dressing clean, dry and intact * No driving x6 weeks * Continue Aspirin twice a day x 6 weeks * Follow up [place] [facility] [place] [facility] weeks: 09/30/2413:[facility] Orth[facility] SurgeonsNevin Oconnor PA-C
--- NOTE | 2023-09-18 08:37 | W.MHC.F2F ---
Service Date Service Date: 09/18/23 Encounter Date of encounter: 09/18/23 Reasons for Services Signs and symptoms assessed: Weakness, poor balance, poor gait mechanics Reason for physical therapy: home safety and mobility, therapeutic exercises, restore joint function, gait/transfer training, ADL training and energy conservation Reason for occupational therapy: home safety and mobility, therapeutic exercises, restore joint function, gait/transfer training, ADL training and energy conservation Homebound: Leaving the home is medically contraindicated at this time without the asist of a device and/or another person due th the listed conditions above and below. Reason homebound: unsteady gait / fall risk, pain with ambulation, poor balance / fall risk and unable to drive Homebound supporting statement: Weakness, poor balance, poor gait mechanics Certification: Based on the above findings, I certify that this patient is confined to the home and needs intermittent retirement care, physical therapy and/or speech therapy, or continues to need occupational therapy. The patient is under my care, and I have initiated the establishment of the plan of care. The patient will be followed by a physician who will periodically review the plan of care. Time Spent With Patient Time: Total time managing care of this patient today ____ minutes.
[2023-09-18 08:39] VITALS: BP 117/64; PULSE 85; O2SAT 94
[2023-09-18] MEDS: Acetaminophen 325 MG TABLET 650 MG PO (09:13)
--- NOTE | 2023-09-18 09:25 | MHC.CM.PN ---
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
--- NOTE | 2023-09-25 14:47 | W.PM.OPN ---
Operative Note Operative Note Date of Service: 09/16/23 Narrative: Date of Service: 09/16/23 Pre-op diagnosis: right hip OA Post-op diagnosis: same Procedure: Right NATY Implants: Gilman Trident 2 #48 Accolade2 #2 132 with -4 32 ceramic femoral head Surgeon: Russ Gutierrez MD Anesthesia: GETA and local Was an [employer] used for this Procedure?: Yes [employer]: Alcon Lopez Estimated blood loss (mL): 200 IV fluids (mL): 850 Pathology: other Condition: stable Disposition: PACU Procedure in detail: Patient was brought into the operating room and placed in the right lateral decubitus position. All bony prominences were well padded and the limb was prepped and draped in standard sterile fashion. A time-out was called to identify proper site procedure proper surgeon IV antibiotics and 1 g of transaxemic acid were administered. I began by making a curvilinear incision over the posterolateral aspect of the greater trochanter. Dissection was taken down to the tensor fascia which was incised in line with the incision and a Charnley retractor was placed. Cautery was used to maintain hemostasis. The hip was internally rotated and the external rotators were identified. The vessels were cauterized and a full-thickness capsular/external rotator layer was developed starting just proximal to the piriformis. This layer was tagged and a dull Hohmann retractor was placed underneath the neck in the hip was dislocated. A neck cut was made 1 cm proximal to the lesser trochanter and the head and neck were removed and measured 46mm on the back table. I then removed the labrum and cauterized the fovea. I started with a 44 reamer and medialized to the inner table. There was minimal posterior bone. I medialized to the inner table but there was postero superior cup ucovered as I reamed. I sreamed up to a size 48 and impacted a 48mm cup at 45 degrees of inclination and 25 degrees of version. There was good fixation and I placed one long acetabular screw using standard AO technique. I then placed a liner and turned my attention to the femur. I identified the piriformis insertion and used this as a starting point for my stewartie cutter. The medius tendon was protected with a Hibs retractor. A Charnley awl was inserted in the canal and a curved curette used to remove the lateral bone. I irrigated copiously. I then sequentially broached in the patient's natural version to a size 2 and placed my trial implants. I used a #2/132/-4 based on my pre-operative template. Using a trail head I took the hip through range of motion. I was satisfied with the stability. I removed all instrumentation and copiously irrigated. I placed my final femoral implant and again took the hip through range of motion and was satisfied with the stability and length. The final -4 implant was impacted in place and the hip reduced. I then irrigated and placed 1 g of local transaxemic acid. I performed a capsular closure with 2.0 fiberwire, Joanne's fascia with 0 Vicryl, subcuticular with 2-0 Vicryl and the skin with helen. Patient was placed into a sterile dressing. Patient was extubated brought to the recovery room in stable condition. There were no known complications.
== END 2023-09-18 11:30 | disposition home health service (06) | DRG 470 ==
LOC: HO.SSSA 10:27 → HO.S3 15:09
PROVIDERS: Family Medicine; Nurse Practitioner; Orthopaedic Surgery; Admitting Provider Physician Assistant; PCP Internal Medicine; Visit Provider Physician Assistant
PROC: 0SR903A Replacement of Right Hip Joint with Ceramic Synthetic Substitute, Uncemented, Open Approach (ICD-10-PCS; CPT 27130; principal; 2023-09-16 12:30)
DX: M16.11 Unilateral primary osteoarthritis, right hip (principal); M79.7 Fibromyalgia; I10 Essential (primary) hypertension; R07.89 Other chest pain; F39 Unspecified mood [affective] disorder; J45.20 Mild intermittent asthma, uncomplicated; Z91.041 Radiographic dye allergy status; Z79.899 Other long term (current) drug therapy
CPT/HCPCS: 27130; 36415; 72170; 80048; 84484; 85025; 86850; 86900; 86901; 87640; 87641; 88304; 88311; 93005; 97110; 97116; 97162; 97165; 97535; C1776; J0131; J0690; J1170; J1650; J2704; J2795; J3010; J7120

== ENCOUNTER 2023-09-16 10:06 | Outpatient (BNV) | payer MEDICARE, MEDICAID, SELFPAY | END 2023-09-17 17:00 | PROVIDERS: Admitting Provider Physician Assistant; PCP Internal Medicine; Visit Provider Internal Medicine Cardiovascular Disease | DX: R07.9 Chest pain, unspecified (principal); R94.31 Abnormal electrocardiogram [ECG] [EKG] | CPT/HCPCS: 93010 ==

== ENCOUNTER → 2023-09-16 10:06 | Outpatient (BNV) | payer MEDICARE, MEDICAID, SELFPAY | PROVIDERS: Admitting Provider Physician Assistant; PCP Internal Medicine; Visit Provider Orthopaedic Surgery | DX: Z96.641 Presence of right artificial hip joint (principal) | CPT/HCPCS: 27130; 99024; G0180 ==

== ENCOUNTER → 2023-09-16 10:06 | Outpatient (BNV) | payer MEDICARE, MEDICAID, SELFPAY | PROVIDERS: Admitting Provider Physician Assistant; PCP Internal Medicine; Visit Provider Physician Assistant | DX: M16.11 Unilateral primary osteoarthritis, right hip (principal); I10 Essential (primary) hypertension; J45.20 Mild intermittent asthma, uncomplicated | CPT/HCPCS: 99222; 99499 ==

== ENCOUNTER 2023-10-01 14:26 | Outpatient (AMB) | payer MEDICARE, MEDICAID, SELFPAY ==
--- NOTE | 2023-10-01 06:41 | A.OFFVIS_ITS ---
Intake Vital Signs 10/01/23 14:30 Height 5 ft Weight 176 lb BMI 34.4 Intake Visit Reasons: PO-RT NATY 09/16/23 NE Intake Note: Yue 58 yr old female presents today for her PO visit for her RT NATY 09/16/23 NE. Dressing and matias removed in office. States she is having mild pain and discomfort Accompanied by: Spouse Allergies SILVER Inhibitors [SILVER INHIBITORS] Allergy (Severe, Verified 09/03/23 13:37) SWELLING celecoxib Allergy (Severe, Verified 09/16/23 20:27) Swelling ibuprofen [From MOTRIN] Allergy (Severe, Verified 09/03/23 13:37) SWELLING prednisone [PREDNISONE] Allergy (Severe, Verified 09/03/23 13:37) SWELLING Contrast dye Allergy (Severe, Uncoded 07/20/23 12:57) Anaphylaxis Motrin Allergy (Severe, Uncoded 07/20/23 12:57) Swelling HPI PO-RT NATY 09/16/23 NE HPI Details 58-year-old female who [facility] for post-op right NATY, 09/15/[address] Gutierrez. She continues to have mild pain and discomfort in her hip however she is doing well otherwise. She has completed her home physical therapy sessions yesterday. She is taking oxycodone for her pain with benefits. She has no other concerns today. [facility] Medical History Arthritis Back pain Vitamin D deficiency Anemia Peptic ulcer GERD (gastroesophageal reflux disease) Habitual snoring Fibromyalgia Anxiety Chronic migraine without aura Asthma Hypertension Surgical History History of back surgery H/O colonoscopy Status post bilateral breast reduction Status post arthroscopy of right shoulder History of left hip replacement Social History Household Members: None Housing: Apartment Are you a primary career coordinator to a significant other at home: No Do you presently have visiting nurse or other home services: No Alcohol intake: never Patient Tobacco Use Status: Never used Tobacco service: No Current occupational status: disabled Current occupation: right hand Review of Systems Const All systems reviewed & are unremarkable except as noted in HPI and below Physical Exam Vital Signs: BMI result Body Mass Index 34.4 Extrem Other: Right hip: Incision clean, dry and intact. No erythema or drainage. No pain with ROM or hip flexion. NVI. Results Reviewed Results Reviewed: Brief Operative Note Date of Service: 09/16/23 Pre-op diagnosis: right hip OA Post-op diagnosis: same Procedure: Right NATY Implants: Mary Kate Trident 2 #48 Accolade2 #2 132 with -4 32 ceramic femoral head Surgeon: Russ Gutierrez MD Assessment & Plan Assessment & Plan (1) History of total right hip replacement: Code(s): Z96.641 - Presence of right artificial hip joint Plan Matias removed, steri strips applied. She will begin to transition to Outpatient PT to continue working on Gait training, ROM and quad strength. No driving for another 4 weeks. She will require ppx abx for dental procedures. She will f/u in 4 weeks, sooner if needed. Patient Instructions: Scribed for Alcon Lopez PA-C, by Ashvin Benito medical transport specialist, on 10/01/2023 at 2:30 PM EST. I, Alcon Lopez PA-C, have personally reviewed and agree with the information entered by the scribe. Coding Level of Care Code Global (41386) Diagnoses History of total right hip replacement Z96.641
[2023-10-01 14:30] VITALS: BMI 34.4
== END 2023-10-01 14:50 | disposition home or self-care (01) ==
PROVIDERS: PCP Internal Medicine; Visit Provider Physician Assistant
DX: Z96.641 Presence of right artificial hip joint (principal)
CPT/HCPCS: 99024

== ENCOUNTER → 2023-10-01 14:26 | Outpatient (BNVA) | payer MEDICARE, MEDICAID, SELFPAY | PROVIDERS: PCP Internal Medicine; Visit Provider Physician Assistant | DX: Z47.1 Aftercare following joint replacement surgery (principal); Z96.641 Presence of right artificial hip joint | CPT/HCPCS: 99212 ==

== ENCOUNTER 2023-10-29 | Outpatient (REF) | payer MEDICARE, MEDICAID, SELFPAY | END 2023-10-29 00:01 | disposition home or self-care (01) | LOC: CF | PROVIDERS: Visit Provider Psychiatry & Neurology Neurology | DX: Z13.89 Encounter for screening for other disorder (principal) ==

== ENCOUNTER 2023-10-29 12:36 | Outpatient (REF) | payer MEDICARE, MEDICAID, SELFPAY ==
--- NOTE | ~2023-10-29 | XR_ITS ---
EXAMINATION: XR PELVIS CLINICAL INFORMATION: Pain unspecified. COMPARISON: 09/16/2023, 04/21/2023, 10/12/2020. TECHNIQUE: 3 AP views of the pelvis. FINDINGS: Multiple radiopaque dots overlie the central abdomen. Mild levoscoliosis of the imaged [id number] lumbar spine with degenerative changes. 2 radiopaque tubular device is overlying the inferior aspect of the sacrum of uncertain etiology. Redemonstration of right total hip arthroplasty with acetabular screw. Redemonstration of left total hip arthroplasty with acetabular screws. Hardware appears intact on the 3 AP views provided. Please note that although 3 views were obtained, the distal tip of the femoral component of the left prosthesis was not imaged and therefore cannot be evaluated. Repeat imaging at no charge to patient recommended to include distal tip of femoral component of left hip prosthesis and, if these images are obtained, an addendum will be dictated. XR/XR pelvis 1-2V IMPRESSION: Redemonstration of bilateral total hip arthroplasties. Hardware appears intact on the 3 AP views provided. Please note that although 3 views were obtained, the distal tip of the femoral component of the left prosthesis was not imaged and therefore cannot be evaluated. Repeat imaging at no charge to patient recommended to include distal tip of femoral component of left hip prosthesis and, if these images are obtained, an addendum will be dictated.
== END 2023-10-29 12:37 | disposition home or self-care (01) ==
LOC: HO.HOSX 12:36
PROVIDERS: Visit Provider Orthopaedic Surgery
DX: T84.84XA Pain due to internal orthopedic prosthetic devices, implants and grafts, initial encounter (principal); Z96.641 Presence of right artificial hip joint; G43.709 Chronic migraine without aura, not intractable, without status migrainosus
CPT/HCPCS: 64615; 72170; 99211; 99212; J0585

== ENCOUNTER 2023-10-29 12:59 | Outpatient (AMB) | payer MEDICARE, MEDICAID, SELFPAY ==
--- NOTE | 2023-10-29 13:15 | A.OFFVIS_ITS ---
Vital Signs 10/29/23 13:16 Height 5 ft Weight 176 lb BMI 34.4 Intake Visit Reasons: PO 6 week RT NATY 09/16/23 NE Intake Note: Yue is a 58 year old female who presents today for a post operative visit s/p RT NATY 09/16/23 NE. Patient reports that she is doing well, she still has pain of the hip. She explains that her pain radiates to the right side of her lower back Allergies SILVER Inhibitors [SILVER INHIBITORS] Allergy (Severe, Verified 10/29/23 14:24) SWELLING celecoxib Allergy (Severe, Verified 10/29/23 14:24) Swelling ibuprofen [From MOTRIN] Allergy (Severe, Verified 10/29/23 14:24) SWELLING prednisone [PREDNISONE] Allergy (Severe, Verified 10/29/23 14:24) SWELLING Contrast dye Allergy (Severe, Uncoded 10/29/23 14:24) Anaphylaxis Motrin Allergy (Severe, Uncoded 10/29/23 14:24) Swelling HPI HPI PO 6 week RT NATY 09/16/23 NE: Details: Yue is a 58 year old female who presents today for a post operative visit s/p RT NATY 09/16/23 NE. Patient reports that she is doing well, she still has pain of the hip. She explains that her pain radiates to the right side of her lower back PFSH Medical History Osteoarthritis of right hip Arthritis Back pain Vitamin D deficiency Anemia Peptic ulcer GERD (gastroesophageal reflux disease) Habitual snoring Fibromyalgia Anxiety Chronic migraine without aura Asthma Hypertension Surgical History History of back surgery H/O colonoscopy Status post bilateral breast reduction Status post arthroscopy of right shoulder History of left hip replacement Social History Household Members: None Housing: Apartment Are you a primary nurse behavioral health care to a significant other at home: No Do you presently have visiting nurse or other home services: No Alcohol intake: never Patient Tobacco Use Status: Never used Tobacco service: No Current occupational status: disabled 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 Right NATY in expected post operative position with no hardware complications or evidence of loosening Assessment & Plan Assessment & Plan (1) History of total right hip replacement: Code(s): Z96.641 - Presence of right artificial hip joint Category: Surgical Plan: Continue walking as tolerated. HEP November d/c ASA f/u 6 weeks Orders: Orders XR pelvis 1-2V 10/29/23 M25.559 - Pain in unspecified hip Coding Level of Care Code Global (91065) Diagnoses History of total right hip replacement Z96.641
[2023-10-29 13:16] VITALS: BMI 34.4
== END 2023-10-29 13:57 | disposition home or self-care (01) ==
PROVIDERS: PCP Internal Medicine; Visit Provider Orthopaedic Surgery
DX: Z96.641 Presence of right artificial hip joint (principal)
CPT/HCPCS: 99024

== ENCOUNTER 2023-10-29 14:14 | Outpatient (AMB) | payer MEDICARE, MEDICAID, SELFPAY ==
[2023-10-29 14:24] VITALS: BP 148/78; PULSE 78; RESP 17; O2SAT 97; BMI 34.4
--- NOTE | 2023-10-29 14:24 | A.OFFVIS_ITS ---
Vital Signs 10/29/23 14:24 Height 5 ft Weight 176 lb BMI 34.4 BP 148/78 H Blood Pressure Location Lt brachial Position Sitting Respiration 17 Pulse 78 Pulse Source Pulse Oximeter Pulse Oximetry (%) 97 Oxygen Delivery Method Room Air Intake Visit Reasons: Botox-CONF Intake Note: Pt presdents to the office for Botox injections. Cook Ice Cream Required: No Allergies SILVER Inhibitors [SILVER INHIBITORS] Allergy (Severe, Verified 10/29/23 14:24) SWELLING celecoxib Allergy (Severe, Verified 10/29/23 14:24) Swelling ibuprofen [From MOTRIN] Allergy (Severe, Verified 10/29/23 14:24) SWELLING prednisone [PREDNISONE] Allergy (Severe, Verified 10/29/23 14:24) SWELLING Contrast dye Allergy (Severe, Uncoded 10/29/23 14:24) Anaphylaxis Motrin Allergy (Severe, Uncoded 10/29/23 14:24) Swelling Medication List - Last Reconciled 10/29/23 by Martha Torres MD acetaminophen 650 mg (2 x 325 mg) PO Q6H PRN 30 days albuterol sulfate 90 mcg/actuation (ProAir HFA) 2 puffs inhalation QID PRN celecoxib 200 mg PO BID 30 days cholecalciferol (vitamin D3) 1 cap PO DAILY clonidine HCl 0.1 mg PO BEDTIME PRN docusate sodium 100 mg PO BID 14 days duloxetine 60 mg PO BEDTIME enoxaparin 40 mg (0.4 mL) subcut Q24H 42 days ferrous sulfate 1 tab PO Q OTHER DAY fluticasone propionate 50 mcg/actuation 1 spray intranasal BEDTIME hydrochlorothiazide 1 tab PO QAM losartan 100 mg PO DAILY metoprolol tartrate 1 tab PO DAILY omeprazole 1 cap PO DAILY oxycodone 5 mg PO Q8H PRN 7 days paroxetine HCl 20 mg PO DAILY tizanidine 4 mg PO BID PRN HPI Comments Details: ? 58y/o female comes for treatment of migraines with botox. How many migraine days prior to botox-30 How long do the migraines last-2 days Intensity of migraine-decreased ER visits related to migraine-yes Effectiveness of botox from last two treatment(s) How many migraine days since receiving treatment:4-5 Change? in intensity of migraine?decreased Change in frequency of migraine?decreased Change in use of acute medication for migraine?decreased Change in quality of life?better ER visits related to migraine?none Have at least three months elapsed since last treatment (Last botox date - frequency of injections) 1.24 ??? Most frequent reported adverse reactions following injectio n of botox for chronic migraine include neck pain (9%), headache(5%), eyelid ptosis(4%), migraine(4%), muscular weakness(4%), musculuskeletal stiffness(4%), bronchitis(3%), injection site pain (3%), musculoskeletal pain(3%), myalgia(3%), facial paresis(2%), HTN(2%) and muscle spasms(2%) were discussed in detail. ??? Botulinum toxin typeA 200units Lot no [id number] expiration December 2025 was diluted with 4 cc of normal saline . ??? Muscles injected- ??? Frontalis 4 sites ??? Procerus 1 site ??? Aviation Safety Inspector- 2 sites ??? Temporalis- 8 sites ??? Occipitalis- 6 sites ??? Cervical paraspinals- 4 sites ??? Trapezius- 6 sites- 10 units each ??? 5 units each in 31 site ??? Total use- 185units ??? Discarded-15units [facility] Medical History Osteoarthritis of right hip Arthritis Back pain Vitamin D deficiency Anemia Peptic ulcer GERD (gastroesophageal reflux disease) Habitual snoring Fibromyalgia Anxiety Chronic migraine without aura Asthma Hypertension Surgical History History of back surgery H/O colonoscopy Status post bilateral breast reduction Status post arthroscopy of right shoulder History of left hip replacement Social History Household Members: None Housing: Apartment Are you a primary medicare contact specialist to a significant other at home: No Do you presently have visiting nurse or other home services: No Alcohol intake: never Patient Tobacco Use Status: Never used Tobacco service: No Current occupational status: disabled Current occupation: right hand Physical Exam Vital Signs: Last Vital Signs Pulse 78 10/29/23 14:24 Resp 17 10/29/23 14:24 BP 148/78 H 04/25/24 14:24 Pulse Ox 97 10/29/23 14:24 Oxygen Delivery Method Room Air 10/29/23 14:24 BMI result Body Mass Index 34.4 Const General: cooperative, healthy appearing and no acute distress Orientation/consciousness: patient oriented x3 HEENT Other: tenderness in right parietal and temporal region , pain when she opens her mouth Eyes Pupils: Equal, round and reactive pupils present Neck Other: tenderness in right neck, limited lateral neck movement due to pain. Resp Effort & Inspection: normal respiratory effort and able to speak in complete sentences Cardio Rate: regular rate Peripheral pulses: Peripheral pulses 2+ throughout GI Palpation (GI): Soft to palpation Skin Lesions: no lesions Rashes: no rashes Neuro General: patient oriented x3, tone normal and moves all extremities Cranial nerves: Yes Equal, round and reactive pupils present, Yes Nystagmus not present and Yes Normal facial strength present Gait exam (Neuro): Normal gait present Motor exam (neuro): 5/5 motor strength present throughout and Normal motor muscle tone present throughout Office Procedures Botulinum toxin Injection 13951 - Migraine Procedure code (CPT) selection complete Office Meds onabotulinumtoxinA 200 unit solution for injection Performing Provider: Martha Torres MD Performing Location: [facility] Administered by: Martha Torres MD on 10/29/23 15:06 Dose Route Admin Location Dispensed Lot Number Expiration Date [facility] 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 unit subcut 200 units [id number] 12/04/25 4460-8208-71 [employer] Comments: see HPI Assessment & Plan Assessment & Plan (1) Migraine with aura, intractable, without status migrainosus: Code(s): G43.119 - Migraine with aura, intractable, without status migrainosus Category: Medical (2) Chronic migraine with aura: Code(s): G43.109 - Migraine with aura, not intractable, without status migrainosus Category: Medical (3) Chronic migraine without aura: Code(s): G43.709 - Chronic migraine without aura, not intractable, without status migrainosus Category: Medical Plan patient tolerated the procedure well she will call with any side effects Orders: Orders AMB Botulinum toxin Injection Today G43.109 - Migraine with aura, not intractable, without status migrainosus Medications: New onabotulinumtoxinA 200 units subcut ONCE 1 ea 0RF migraine G43.109 - Migraine with aura, not intractable, without status migrainosus Coding Level of Care Code Est Pt Level 1 (55388) Diagnoses Migraine with aura, intractable, without status migrainosus G43.119 Chronic migraine with aura G43.109 Chronic migraine without aura G43.709 CPT Codes Botox Injection - Botox 3: 10483 - Migraine ([id number])
== END 2023-10-29 14:55 | disposition home or self-care (01) ==
PROVIDERS: PCP Internal Medicine; Visit Provider Psychiatry & Neurology Neurology
DX: G43.119 Migraine with aura, intractable, without status migrainosus (principal)
CPT/HCPCS: 64615

== ENCOUNTER 2023-12-21 07:52 | Outpatient (REF) | payer MEDICARE, MEDICAID, SELFPAY ==
--- NOTE | ~2023-12-21 | XR_ITS ---
EXAMINATION: XR PELVIS CLINICAL INFORMATION: Pain in hip. COMPARISON: Prior mammograms most recent pelvis October 2023. TECHNIQUE: AP view of the pelvis. FINDINGS: Right total hip arthroplasty with components in usual position; no periprosthetic fracture or suspicious area of lucency. There is a left total hip arthroplasty. The distal portion of the left femoral stem is outside of the [id number] of the examination, therefore cannot be evaluated. There is heterotopic ossification adjacent to the lateral aspect of the acetabulum unchanged. No periprosthetic fracture or suspicious area of lucency in the area of the prosthesis identified. There is chondrocalcinosis of the symphysis pubis. The upper portion of the iliac bones are outside of the neoiz-en-jwet of the exam. XR/XR pelvis 1-2V IMPRESSION: 1. Right total hip arthroplasty without complication by x-ray. 2. Left total hip arthroplasty without change. The distal portion of the femoral stem is outside the itixo-qp-kgwj the exam therefore cannot be evaluated. I recommend repeat radiographs of the left hip and femur to fully include the distal portion of the femoral stem if possible.
== END 2023-12-21 07:53 | disposition home or self-care (01) ==
LOC: HO.HOSX 07:52
PROVIDERS: Visit Provider Orthopaedic Surgery
DX: S70.01XA Contusion of right hip, initial encounter (principal); Z96.641 Presence of right artificial hip joint
CPT/HCPCS: 72170; 99212

== ENCOUNTER 2023-12-21 09:18 | Outpatient (AMB) | payer MEDICARE, MEDICAID, SELFPAY ==
[2023-12-21 09:30] VITALS: BMI 34.4
--- NOTE | 2023-12-21 09:30 | A.OFFVIS_ITS ---
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 Hx of Right NATY 09/16/23 NE. Patient states she tripped over some shoes on the side of her bed and landed on her right side. She expresses she is having sharp pain is in the lateral aspect of her right hip and radiates down to her right knee and right ankle. She is unable to ambulate and sit without discomfort. She is currently going to [facility] for PT for the right knee. She is also requesting a new referral for PT for her hip. 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 Hx of Right NATY 09/16/23 NE. Patient states she tripped over some shoes on the side of her bed and landed on her right side. She expresses she is having sharp pain is in the lateral aspect of her right hip and radiates down to her right knee and right ankle. She is unable to ambulate and sit without discomfort. She is currently going to [facility] for PT for the right knee. She is also requesting a new referral for PT for her hip. [facility] Medical History Osteoarthritis of right hip Arthritis Back pain Vitamin D deficiency Anemia Peptic ulcer GERD (gastroesophageal reflux disease) Habitual snoring Fibromyalgia Anxiety Chronic migraine without aura Asthma Hypertension Surgical History History of back surgery H/O colonoscopy Status post bilateral breast reduction Status post arthroscopy of right shoulder History of left hip replacement Social History Household Members: None Housing: Apartment Are you a primary daytime caregiver to a significant other at home: No Do you presently have visiting nurse or other home services: No Alcohol intake: never Patient Tobacco Use Status: Never used Tobacco service: No Current occupational status: disabled 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 Right NATY in expected post operative position with no hardware complications or evidence of loosening Assessment & Plan Assessment & Plan (1) History of total right hip replacement: Code(s): Z96.641 - Presence of right artificial hip joint Category: Surgical Plan: Stable and unchanged from prior (2) Contusion of right hip: Code(s): S70.01XA - Contusion of right hip, initial encounter Category: Medical Plan: Continue gentle walking Orders: Orders XR pelvis 1-2V Today M25.559 - Pain in unspecified hip Coding Level of Care Code Est Pt Level 3 (07910) Diagnoses History of total right hip replacement Z96.641 Contusion of right hip S70.01XA
== END 2023-12-21 10:14 | disposition home or self-care (01) ==
PROVIDERS: PCP Internal Medicine; Visit Provider Orthopaedic Surgery
DX: M25.561 Pain in right knee (principal); S70.01XA Contusion of right hip, initial encounter; Z96.641 Presence of right artificial hip joint
CPT/HCPCS: 99213

== ENCOUNTER 2024-02-01 08:12 | Outpatient (AMB) | payer MEDICARE, MEDICAID, SELFPAY ==
--- NOTE | 2024-02-01 08:12 | A.OFFVIS_ITS ---
Intake Visit Reasons: Botox Intake Note: Patient presents for botox. Allergies SILVER Inhibitors [SILVER INHIBITORS] Allergy (Severe, Verified 02/01/24 08:14) SWELLING celecoxib Allergy (Severe, Verified 02/01/24 08:14) Swelling ibuprofen [From MOTRIN] Allergy (Severe, Verified 02/01/24 08:14) SWELLING prednisone [PREDNISONE] Allergy (Severe, Verified 02/01/24 08:14) SWELLING Contrast dye Allergy (Severe, Uncoded 02/01/24 08:14) Anaphylaxis Motrin Allergy (Severe, Uncoded 02/01/24 08:14) Swelling HPI Comments Details: ? 58y/o female comes for treatment of migraines with botox. How many migraine days prior to botox-30 How long do the migraines last-2 days Intensity of migraine-decreased ER visits related to migraine-yes Effectiveness of botox from last two treatment(s) How many migraine days since receiving treatment:4-5 Change? in intensity of migraine?decreased Change in frequency of migraine?decreased Change in use of acute medication for migraine?decreased Change in quality of life?better ER visits related to migraine?none Have at least three months elapsed since last treatment (Last botox date - frequency of injections) 10/27 ??? Most frequent reported adverse reactions following injectio n of botox for chronic migraine include neck pain (9%), headache(5%), eyelid ptosis(4%), migraine(4%), muscular weakness(4%), musculuskeletal stiffness(4%), bronchitis(3%), injection site pain (3%), musculoskeletal pain(3%), myalgia(3%), facial paresis(2%), HTN(2%) and muscle spasms(2%) were discussed in detail. ??? Botulinum toxin typeA 200units Lot no [id number] expiration Feb 2026 was diluted with 4 cc of normal saline . ??? Muscles injected- ??? Frontalis 4 sites ??? Procerus 1 site ??? Medical Lab Tech Instructor- 2 sites ??? Temporalis- 8 sites ??? Occipitalis- 6 sites ??? Cervical paraspinals- 4 sites ??? Trapezius- 6 sites- 10 units each ??? 5 units each in 31 site ??? Total use- 185units ??? Discarded-15units [facility] Medical History Hypersomnia Snoring Osteoarthritis of right hip Arthritis Back pain Vitamin D deficiency Anemia Peptic ulcer GERD (gastroesophageal reflux disease) Habitual snoring Fibromyalgia Anxiety Chronic migraine without aura Asthma Hypertension Surgical History History of back surgery H/O colonoscopy Status post bilateral breast reduction Status post arthroscopy of right shoulder History of left hip replacement Social History Household Members: None Housing: Apartment Are you a primary primary care nurse to a significant other at home: No Do you presently have visiting nurse or other home services: No Alcohol intake: never Patient Tobacco Use Status: Never used Tobacco service: No Current occupational status: disabled Current occupation: right hand Physical Exam Const General: cooperative, healthy appearing and no acute distress Orientation/consciousness: patient oriented x3 HEENT Other: tenderness in right parietal and temporal region , pain when she opens her mouth Eyes Pupils: Equal, round and reactive pupils present Neck Other: tenderness in right neck, limited lateral neck movement due to pain. Resp Effort & Inspection: normal respiratory effort and able to speak in complete sentences Cardio Rate: regular rate Peripheral pulses: Peripheral pulses 2+ throughout GI Palpation (GI): Soft to palpation Skin Lesions: no lesions Rashes: no rashes Neuro General: patient oriented x3, tone normal and moves all extremities Cranial nerves: Yes Equal, round and reactive pupils present, Yes Nystagmus not present and Yes Normal facial strength present Gait exam (Neuro): Normal gait present Motor exam (neuro): 5/5 motor strength present throughout and Normal motor muscle tone present throughout Office Procedures Botulinum toxin Injection 30284 - Migraine Procedure code (CPT) selection complete Office Meds onabotulinumtoxinA 200 unit solution for injection Performing Provider: Martha Torres MD Performing Location: [facility] [place] [facility] Administered by: Martha Torres MD on 02/01/24 09:06 Dose Route Admin Location Dispensed Lot Number Expiration Date [facility] Charge Machine Operator 185 unit subcut 200 units [id number] 02/03/26 7454-4280-77 ALLERGAN/BOTOX Comments: see HPI Assessment & Plan Assessment & Plan (1) Migraine with aura, intractable, without status migrainosus: Code(s): G43.119 - Migraine with aura, intractable, without status migrainosus Category: Medical (2) Chronic migraine with aura: Code(s): G43.109 - Migraine with aura, not intractable, without status migrainosus Category: Medical (3) Chronic migraine without aura: Code(s): G43.709 - Chronic migraine without aura, not intractable, without status migrainosus Category: Medical Plan patient tolerated the procedure well she will call with any side effects Orders: Orders RT home sleep study Today G47.10 - Hypersomnia, unspecified, R06.83 - Snoring AMB Botulinum toxin Injection Today G43.109 - Migraine with aura, not intractable, without status migrainosus Medications: New onabotulinumtoxinA 200 units subcut ONCE 1 ea 0RF migraine G43.109 - Migraine with aura, not intractable, without status migrainosus Coding Level of Care Code Est Pt Level 1 (99567) Diagnoses Migraine with aura, intractable, without status migrainosus G43.119 Chronic migraine with aura G43.109 Chronic migraine without aura G43.709 CPT Codes Botox Injection - Botox 3: 40160 - Migraine ([id number])
== END 2024-02-01 09:24 | disposition home or self-care (01) ==
PROVIDERS: PCP Internal Medicine; Visit Provider Psychiatry & Neurology Neurology
DX: G43.709 Chronic migraine without aura, not intractable, without status migrainosus (principal)
CPT/HCPCS: 64615

== ENCOUNTER → 2024-02-01 08:12 | Outpatient (BNVA) | payer MEDICARE, MEDICAID, SELFPAY | PROVIDERS: PCP Internal Medicine; Visit Provider Psychiatry & Neurology Neurology | DX: G43.E19 Chronic migraine with aura, intractable, without status migrainosus (principal); G47.10 Hypersomnia, unspecified; R06.83 Snoring | CPT/HCPCS: 64615; 99211; J0585 ==

== ENCOUNTER → 2024-04-13 14:12 | Outpatient (REF) | payer MEDICARE, MEDICAID, SELFPAY | LOC: HO.SL 14:12 | PROVIDERS: PCP Internal Medicine; Visit Provider Psychiatry & Neurology Neurology | DX: R06.83 Snoring (principal); G47.10 Hypersomnia, unspecified | CPT/HCPCS: 95806 ==

== ENCOUNTER → 2024-04-14 14:25 | Outpatient (BNV) | payer MEDICARE, MEDICAID, SELFPAY | PROVIDERS: PCP Internal Medicine; Visit Provider Psychiatry & Neurology Neurology | DX: R06.83 Snoring (principal); G47.10 Hypersomnia, unspecified | CPT/HCPCS: 95806 ==

== ENCOUNTER 2024-05-18 12:22 | Outpatient (AMB) | payer MEDICARE, MEDICAID, SELFPAY ==
[2024-05-18 12:30] VITALS: BMI 34.4
--- NOTE | 2024-05-18 12:30 | A.OFFVIS_ITS ---
Vital Signs 05/18/24 12:30 Height 5 ft Weight 176 lb BMI 34.4 Intake Visit Reasons: Botox Intake Note: patient presents for botox Allergies SILVER Inhibitors [SILVER INHIBITORS] Allergy (Severe, Verified 05/18/24 12:32) SWELLING celecoxib Allergy (Severe, Verified 05/18/24 12:32) Swelling ibuprofen [From MOTRIN] Allergy (Severe, Verified 05/18/24 12:32) SWELLING prednisone [PREDNISONE] Allergy (Severe, Verified 05/18/24 12:32) SWELLING Contrast dye Allergy (Severe, Uncoded 05/18/24 12:32) Anaphylaxis Motrin Allergy (Severe, Uncoded 05/18/24 12:32) Swelling Medication List - Last Reconciled 05/18/24 by Martha Torres MD acetaminophen 650 mg (2 x 325 mg) PO Q6H PRN 30 days albuterol sulfate 90 mcg/actuation (ProAir HFA) 2 puffs inhalation QID PRN cholecalciferol (vitamin D3) 1 cap PO DAILY clonidine HCl 0.1 mg PO BEDTIME PRN duloxetine 60 mg PO BEDTIME ferrous sulfate 1 tab PO Q OTHER DAY fluticasone propionate 50 mcg/actuation 1 spray intranasal BEDTIME hydrochlorothiazide 1 tab PO QAM losartan 100 mg PO DAILY metoclopramide HCl 5 mg PO Q4-6H PRN 7 days metoprolol tartrate 1 tab PO DAILY omeprazole 1 cap PO DAILY paroxetine HCl 20 mg PO DAILY tizanidine 4 mg PO BID PRN 30 days tramadol 50 mg PO Q6H PRN 7 days ubrogepant (Ubrelvy) 100 mg orally as directed PRN; take at onset of migraine, may repeat in 2hrs (may take w/ Tylenol) 30 days HPI Comments Details: ? 58y/o female comes for treatment of migraines with botox. How many migraine days prior to botox-30 How long do the migraines last-2 days Intensity of migraine-decreased ER visits related to migraine-yes Effectiveness of botox from last two treatment(s) How many migraine days since receiving treatment:4-5 Change? in intensity of migraine?decreased Change in frequency of migraine?decreased Change in use of acute medication for migraine?decreased Change in quality of life?better ER visits related to migraine?none Have at least three months elapsed since last treatment (Last botox date - frequency of injections) 01/26 ??? Most frequent reported adverse reactions following injection of botox for chronic migraine include neck pain (9%), headache(5%), eyelid ptosis(4%), migraine(4%), muscular weakness(4%), musculuskeletal stiffness(4%), bronchitis(3%), injection site pain (3%), musculoskeletal pain(3%), myalgia(3%), facial paresis(2%), HTN(2%) and muscle spasms(2%) were discussed in detail. ??? Botulinum toxin typeA 200units Lot no [id number] expiration September 2026 was diluted with 4 cc of normal saline . ??? Muscles injected- ??? Frontalis 4 sites ??? Procerus 1 site ??? Form Drafter- 2 sites ??? Temporalis- 8 sites ??? Occipitalis- 6 sites ??? Cervical paraspinals- 4 sites ??? Trapezius- 6 sites- 10 units each ??? 5 units each in 31 site ??? Total use- 185units ??? Discarded-15units [facility] Medical History Hypersomnia Snoring Osteoarthritis of right hip Arthritis Back pain Vitamin D deficiency Anemia Peptic ulcer GERD (gastroesophageal reflux disease) Habitual snoring Fibromyalgia Anxiety Chronic migraine without aura Asthma Hypertension Surgical History History of back surgery H/O colonoscopy Status post bilateral breast reduction Status post arthroscopy of right shoulder History of left hip replacement Social History Household Members: None Housing: Apartment Are you a primary neonatal critical care nurse to a significant other at home: No Do you presently have visiting nurse or other home services: No Alcohol intake: never Patient Tobacco Use Status: Never used Tobacco service: No Current occupational status: disabled Current occupation: right hand Physical Exam Vital Signs: BMI result Body Mass Index 34.4 Const General: cooperative, healthy appearing and no acute distress Orientation/consciousness: patient oriented x3 HEENT Other: tenderness in right parietal and temporal region , pain when she opens her mouth Eyes Pupils: Equal, round and reactive pupils present Neck Other: tenderness in right neck, limited lateral neck movement due to pain. Resp Effort & Inspection: normal respiratory effort and able to speak in complete sentences Cardio Rate: regular rate Peripheral pulses: Peripheral pulses 2+ throughout GI Palpation (GI): Soft to palpation Skin Lesions: no lesions Rashes: no rashes Neuro General: patient oriented x3, tone normal and moves all extremities Cranial nerves: Yes Equal, round and reactive pupils present, Yes Nystagmus not present and Yes Normal facial strength present Gait exam (Neuro): Normal gait present Motor exam (neuro): 5/5 motor strength present throughout and Normal motor muscle tone present throughout Office Procedures Botulinum toxin Injection 79765 - Migraine Procedure code (CPT) selection complete Office Meds onabotulinumtoxinA 200 unit solution for injection Performing Provider: Martha Torres MD Performing Location: [facility] [place] [facility] Administered by: Martha Torres MD on 05/18/24 15:20 Dose Route Admin Location Dispensed Lot Number Expiration Date [facility] Glazing Superintendent 185 unit subcut 200 units [id number] 09/03/26 2829-9618-16 ALLERGAN/BOTOX Comments: see HPI Assessment & Plan Assessment & Plan (1) Migraine with aura, intractable, without status migrainosus: Code(s): G43.119 - Migraine with aura, intractable, without status migrainosus Category: Medical (2) Chronic migraine with aura: Code(s): G43.109 - Migraine with aura, not intractable, without status migrainosus Category: Medical Qualifiers: Status migrainosus presence: without status migrainosus Intractability: intractable Qualified Code(s): G43.E19 - Chronic migraine with aura, intractable, without status migrainosus Plan patient tolerated the procedure well she will call with any side effects Orders: Orders AMB Botulinum toxin Injection Today G43.119 - Migraine with aura, intractable, without status migrainosus Medications: New onabotulinumtoxinA 200 units subcut ONCE 1 ea 0RF migraine G43.119 - Migraine with aura, intractable, without status migrainosus Coding Level of Care Code Est Pt Level 1 (73063) Diagnoses Migraine with aura, intractable, without status migrainosus G43.119 Intractable chronic migraine with aura and without status migrainosus G43.E19 Status migrainosus presence: without status migrainosus Intractability: intractable CPT Codes Botox Injection - Botox 3: 84897 - Migraine ([id number])
== END 2024-05-18 13:09 | disposition home or self-care (01) ==
PROVIDERS: PCP Internal Medicine; Visit Provider Psychiatry & Neurology Neurology
DX: G43.E19 Chronic migraine with aura, intractable, without status migrainosus (principal)
CPT/HCPCS: 64615

== ENCOUNTER → 2024-05-18 12:22 | Outpatient (BNVA) | payer MEDICARE, MEDICAID, SELFPAY | PROVIDERS: PCP Internal Medicine; Visit Provider Psychiatry & Neurology Neurology | DX: G43.E19 Chronic migraine with aura, intractable, without status migrainosus (principal) | CPT/HCPCS: 64615; 99211; J0585 ==

== ENCOUNTER 2024-05-19 08:43 | Outpatient (REF) | payer MEDICARE, MEDICAID, SELFPAY | END 2024-05-19 08:44 | disposition home or self-care (01) | LOC: HO.HOSX 08:43 | PROVIDERS: Visit Provider Orthopaedic Surgery | DX: M25.559 Pain in unspecified hip (principal); Z96.641 Presence of right artificial hip joint | CPT/HCPCS: 72170; 99212 ==

== ENCOUNTER 2024-05-19 09:47 | Outpatient (AMB) | payer MEDICARE, MEDICAID, SELFPAY ==
--- NOTE | 2024-05-19 10:17 | A.OFFVIS_ITS ---
Vital Signs 05/19/24 10:18 Height 5 ft Weight 176 lb BMI 34.4 Intake Visit Reasons: OV-RT NATY follow up 09/16/23 NE Intake Note: Yue is a 58 year old Czech speaking female who presents today for a follow up of her right hip s/p Right NATY 09/16/2023. Fall reported on 12/11/2023, tripped over shoes on the side of her bed and landed on the right side. Patient reports that she is have pain at the lower aspect of the right buttock, and at the superioior aspect of the lateral hip. She has increased pain with activity. Occasional numbness and tingling in the right leg. She complains mostly of right knee pain. Allergies SILVER Inhibitors [SILVER INHIBITORS] Allergy (Severe, Verified 05/18/24 12:32) SWELLING celecoxib Allergy (Severe, Verified 05/18/24 12:32) Swelling ibuprofen [From MOTRIN] Allergy (Severe, Verified 05/18/24 12:32) SWELLING prednisone [PREDNISONE] Allergy (Severe, Verified 05/18/24 12:32) SWELLING Contrast dye Allergy (Severe, Uncoded 05/18/24 12:32) Anaphylaxis Motrin Allergy (Severe, Uncoded 05/18/24 12:32) Swelling HPI HPI OV-RT NATY follow up 09/16/23 NE: Details: Yue is a 58 year old Czech speaking female who presents today for a follow up of her right hip s/p Right NATY 09/16/2023. Fall reported on 12/11/2023, tripped over shoes on the side of her bed and landed on the right side. Patient reports that she is have pain at the lower aspect of the right buttock, and at the superioior aspect of the lateral hip. She has increased pain with activity. Occasional numbness and tingling in the right leg. She complains mostly of right knee pain. [facility] Medical History Hypersomnia Snoring Osteoarthritis of right hip Arthritis Back pain Vitamin D deficiency Anemia Peptic ulcer GERD (gastroesophageal reflux disease) Habitual snoring Fibromyalgia Anxiety Chronic migraine without aura Asthma Hypertension Surgical History History of back surgery H/O colonoscopy Status post bilateral breast reduction Status post arthroscopy of right shoulder History of left hip replacement Social History Household Members: None Housing: Apartment Are you a primary medicare biller to a significant other at home: No Do you presently have visiting nurse or other home services: No Alcohol intake: never Patient Tobacco Use Status: Never used Tobacco service: No Current occupational status: disabled Current occupation: right hand Physical Exam Vital Signs: BMI result Body Mass Index 34.4 Extrem Other: No hip pain with right hip range of motion. She has mild tenderness to p alpation over the posterior superior iliac spine Assessment & Plan Assessment & Plan (1) History of total right hip replacement: Code(s): Z96.641 - Presence of right artificial hip joint Category: Surgical Plan: Multiple pain complaints none of which seem to relate to her right hip joint. I recommend referral to pain management. She is amenable to this. Orders: Orders XR pelvis 1-2V Today M25.559 - Pain in unspecified hip Coding Level of Care Code Est Pt Level 3 (02313) Diagnoses History of total right hip replacement Z96.641
[2024-05-19 10:18] VITALS: BMI 34.4
== END 2024-05-19 12:25 | disposition home or self-care (01) ==
PROVIDERS: PCP Internal Medicine; Visit Provider Orthopaedic Surgery
DX: Z47.1 Aftercare following joint replacement surgery (principal); Z96.641 Presence of right artificial hip joint
CPT/HCPCS: 99213

== ENCOUNTER 2024-08-23 14:10 | Outpatient (AMB) | payer MEDICARE, MEDICAID, SELFPAY ==
[2024-08-23 14:50] VITALS: BP 132/78; PULSE 78; O2SAT 98; BMI 35.2
--- NOTE | 2024-08-23 14:50 | A.OFFVIS_ITS ---
Vital Signs 08/23/24 14:50 Height 5 ft Weight 180 lb BMI 35.2 BP 132/78 Blood Pressure Location Rt brachial Position Sitting Pulse 78 Pulse Source Pulse Oximeter Pulse Oximetry (%) 98 Oxygen Delivery Method Room Air Intake Visit Reasons: Botox Intake Note: Patient here for botox injection. Practice supplied Allergies SILVER Inhibitors [SILVER INHIBITORS] Allergy (Severe, Verified 08/23/24 14:51) SWELLING celecoxib Allergy (Severe, Verified 08/23/24 14:51) Swelling ibuprofen [From MOTRIN] Allergy (Severe, Verified 08/23/24 14:51) SWELLING prednisone [PREDNISONE] Allergy (Severe, Verified 08/23/24 14:51) SWELLING Contrast dye Allergy (Severe, Uncoded 08/23/24 14:51) Anaphylaxis Motrin Allergy (Severe, Uncoded 08/23/24 14:51) Swelling Medication List - Last Reconciled 08/23/24 by Martha Torres MD acetaminophen 650 mg (2 x 325 mg) PO Q6H PRN 30 days albuterol sulfate 90 mcg/actuation (ProAir HFA) 2 puffs inhalation QID PRN cholecalciferol (vitamin D3) 1 cap PO DAILY clonidine HCl 0.1 mg PO BEDTIME PRN duloxetine 60 mg PO BEDTIME ferrous sulfate 1 tab PO Q OTHER DAY fluticasone propionate 50 mcg/actuation 1 spray intranasal BEDTIME hydrochlorothiazide 1 tab PO QAM losartan 100 mg PO DAILY metoclopramide HCl 5 mg PO Q4-6H PRN 7 days metoprolol tartrate 1 tab PO DAILY omeprazole 1 cap PO DAILY paroxetine HCl 20 mg PO DAILY tizanidine 4 mg PO BID PRN 30 days ubrogepant (Ubrelvy) 100 mg orally as directed PRN; take at onset of migraine, may repeat in 2hrs (may take w/ Tylenol) 30 days HPI Comments Details: ? 59y/o female comes for treatment of migraines with botox. How many migraine days prior to botox-30 How long do the migraines last-2 days Intensity of migraine-decreased ER visits related to migraine-yes Effectiveness of botox from last two treatment(s) How many migraine days since receiving treatment:4-5 Change? in intensity of migraine?decreased Change in frequency of migraine?decreased Change in use of acute medication for migraine?decreased Change in quality of life?better ER visits related to migraine?none Have at least three months elapsed since last treatment (Last botox date - frequency of injections) 3 mths ??? Most frequent reported adverse reactions following injection of botox for chronic migraine include neck pain (9%), headache(5%), eyelid ptosis(4%), migraine(4%), muscular weakness(4%), musculuskeletal stiffness(4%), bronchitis(3%), injection site pain (3%), musculoskeletal pain(3%), myalgia(3%), facial paresis(2%), HTN(2%) and muscle spasms(2%) were discussed in detail. ??? Botulinum toxin typeA 200units Lot no [id number] expiration September 2026 was diluted with 4 cc of normal saline . ??? Muscles injected- ??? Frontalis 4 sites ??? Procerus 1 site ??? Corn Crop Supervisor- 2 sites ??? Temporalis- 8 sites ??? Occipitalis- 6 sites ??? Cervical paraspinals- 4 sites ??? Trapezius- 6 sites- 10 units each ??? 5 units each in 31 site ??? Total use- 185units ??? Discarded-15units [facility] Medical History Hypersomnia Snoring Osteoarthritis of right hip Arthritis Back pain Vitamin D deficiency Anemia Peptic ulcer GERD (gastroesophageal reflux disease) Habitual snoring Fibromyalgia Anxiety Chronic migraine without aura Asthma Hypertension Surgical History History of back surgery H/O colonoscopy Status post bilateral breast reduction Status post arthroscopy of right shoulder History of left hip replacement Social History Household Members: None Housing: Apartment Are you a primary hospice care transitions coordinator to a significant other at home: No Do you presently have visiting nurse or other home services: No Alcohol intake: never Patient Tobacco Use Status: Never used Tobacco service: No Current occupational status: disabled Current occupation: right hand Physical Exam Vital Signs: Last Vital Signs Pulse 78 08/23/24 14:50 BP 132/78 08/23/24 14:50 Pulse Ox 98 08/23/24 14:50 Oxygen Delivery Method Room Air 08/23/24 14:50 BMI result Body Mass Index 35.2 Const General: cooperative, healthy appearing and no acute distress Orientation/consciousness: patient oriented x3 HEENT Other: tenderness in right parietal and temporal region , pain when she opens her mouth Eyes Pupils: Equal, round and reactive pupils present Neck Other: tenderness in right neck, limited lateral neck movement due to pain. Resp Effort & Inspection: normal respiratory effort and able to speak in complete sentences Cardio Rate: regular rate Peripheral pulses: Peripheral pulses 2+ throughout GI Palpation (GI): Soft to palpation Skin Lesions: no lesions Rashes: no rashes Neuro General: patient oriented x3, tone normal and moves all extremities Cranial nerves: Yes Equal, round and reactive pupils present, Yes Nystagmus not present and Yes Normal facial strength present Gait exam (Neuro): Normal gait present Motor exam (neuro): 5/5 motor strength present throughout and Normal motor muscle tone present throughout Office Procedures Botulinum toxin Injection 92409 - Migraine Procedure code (CPT) selection complete Office Meds onabotulinumtoxinA 200 unit solution for injection Performing Provider: Martha Torres MD Performing Location: [facility] [place] [facility] Administered by: Martha Torres MD on 08/23/24 15:37 Dose Route Admin Location Dispensed Lot Number Expiration Date [facility] Compliance Administrator 185 unit subcut 200 units [id number] ALLERGAN/BOTOX Comments: see hpi Assessment & Plan Assessment & Plan (1) Migraine with aura, intractable, without status migrainosus: Code(s): G43.119 - Migraine with aura, intractable, without status migrainosus Category: Medical (2) Chronic migraine with aura: Code(s): G43.109 - Migraine with aura, not intractable, without status migrainosus Category: Medical Qualifiers: Status migrainosus presence: without status migrainosus Intractability: intractable Qualified Code(s): G43.E19 - Chronic migraine with aura, intractable, without status migrainosus Plan patient tolerated the procedure well she will call with any side effects Orders: Orders AMB Botulinum toxin Injection Today G43.E19 - Chronic migraine with aura, intractable, without status migrainosus Medications: New onabotulinumtoxinA 200 units subcut ONCE 1 ea 0RF migraine G43.E19 - Chronic migraine with aura, intractable, without status migrainosus Coding Level of Care Code Est Pt Level 1 (96560) Diagnoses Migraine with aura, intractable, without status migrainosus G43.119 Intractable chronic migraine with aura and without status migrainosus G43.E19 Status migrainosus presence: without status migrainosus Intractability: intractable CPT Codes Botox Injection - Botox 3: 91878 - Migraine ([id number])
--- OUTSIDE RECORDS SUMMARY | 2024-08-23 15:13 | XMS_ITS | Clinical Summary ---
Author Organization [place] [address] [address] [facility] Building Address [facility] [address] Phone Care Team Providers Care Apprentice Pattern Maker Name Role Phone Mary Traylor DO Primary Care Provider [phone] Allergies Active Allergy Reactions Criticality Noted Date Comments Marvin Inhibitors Swelling,Unknown 10/03/2008 Ibuprofen Unknown,Swelling 10/03/2008 Other Reaction(s): MARVIN inhibitor Iodinated Contrast Media 01/23/2020 Prednisone Swelling 07/29/2016 Medications hydroCHLOROthi azide (HYDRODIURIL) 25 mg tablet Take 1 tablet (25 mg total) by mouth 1 (one) time each day. 02/28/20 17 Active ondansetron (ZOFRAN) 4 mg tablet Take 1 tablet (4 mg total) by mouth. 01/19/20 24 Active cloNIDine (CATAPRES) 0.1 mg tablet Take 1 tablet (0.1 mg total) by mouth 2 (two) times a day. 01/21/20 24 Active losartan (COZAAR) 100 mg tablet Take 1 tablet (100 mg total) by mouth 1 (one) time each day. 01/01/20 24 Active lidocaine (LIDODERM) 5 % patch Place 1 patch on the skin. 09/04/19 24 Active ferrous sulfate 325 mg (65 mg elemental iron) tablet Take 1 tablet (325 mg total) by mouth every other day. 02/28/20 17 Active fluticasone propionate (FLONASE) 50 mcg/actuation nasal spray 01/15/20 17 Active diclofenac (VOLTAREN) 1 % topical gel Apply 4 g topically 4 (four) times a day. 480 g 5 05/20/20 025 Active omeprazole (PriLOSEC) [address] capsule Take 1 capsule (40 mg total) by mouth 1 (one) time each day. 90 each 1 05/20/20 24 Active cholecalcifero l (VITAMIN D-3) 50 mcg (2,000 unit) capsule Take 1 capsule (2,000 Units total) by mouth 1 (one) time each day. 90 each 1 05/20/20 025 Active albuterol HFA (PROAIR HFA ; PROVENTIL HFA ; VENTOLIN HFA) 90 mcg/actuation inhaler Inhale 2 puffs by mouth every 4 (four) hours if needed for wheezing. 20 g 1 05/20/20 Active budesonide (Pulmicort Flexhaler) 180 mcg/actuation inhaler Inhale 1 puff by mouth 2 (two) times a day. Rinse mouth with water after use to reduce aftertaste and incidence of candidiasis. Do not swallow. 3 each 1 05/20/20 Active amitriptyline (ELAVIL) 10 mg tablet TAKE 1 TABLET(10 MG) BY MOUTH AT BEDTIME 90 tablet 08/01/19 25 Active PARoxetine (PAXIL) 20 mg tablet TAKE 1 TABLET BY MOUTH DAILY 90 tablet 1 08/15/19 25 Active metoprolol succinate (TOPROL-XL) 50 mg 24 hr tablet TAKE ONE TABLET BY MOUTH DAILY 90 tablet 1 08/15/19 25 Active metoprolol succinate (Kapspargo Sprinkle) 50 mg capsule,sprink le,ER 24hr Take 50 mg by mouth. 09/04/19 24 025 Discontinued(Fo rmulary change) PARoxetine (PAXIL) 20 mg tablet Take 1 Tablet by mouth daily. 09/04/19 24 025 Discontinued amitriptyline (ELAVIL) 10 mg tablet Take 1 tablet (10 mg total) by mouth at bedtime. 90 each 11/ 025 Discontinued Active Problems Problem Noted Date Diagnosed Date Chronic GERD 05/04/2024 Class 1 obesity 05/04/2024 Cluneal neuropathy 05/04/2024 Iron deficiency anemia 05/04/2024 Migraines 05/04/2024 Right lumbar radiculopathy 05/04/2024 Sacroiliac joint pain 05/04/2024 History of right hip replacement 09/29/2023 Overview (05/04/2024): In 09/2023 Anxiety 07/15/2023 Asthma 07/15/2023 Fibromyalgia 07/15/2023 Hypertension 07/15/2023 Disease due to severe acute respiratory syndrome coronavirus 2 (SARS-CoV-2) 02/06/2023 Overview (05/04/2024): Problem added by Discern Expert Oskar 01/12/2023 Overview (05/04/2024): Last Assessment & Plan: Referral placed to dermatology for further evaluation and treatment. Tubular adenoma of colon 02/16/2022 Breast pain, right 01/17/2020 Overview (05/04/2024): Last Assessment & Plan: I reviewed findings with Yue. Scar looks unremarkable with no palpable mass or evidence of infection. As such, did not recommend imaging as up against chest wall. I recommended referral back to Breast Surgery to see if any intervention is warranted. I reassured her not overall concerning. In encouraged her to use Tylenol for pain in the meantime. Bilateral low back pain 04/01/2018 Overview (05/04/2024): Last Assessment & Plan: Reviewed this is not Family Resource Coordinator in nature and recommended she follow up with PCP. She understood and agreed. Postmenopausal bleeding 04/01/2018 Overview (05/04/2024): Last Assessment & Plan: Reviewed that her ES was very thin on US (3.3 mm) and does not technically require a biopsy, but I usually recommend this given there have been cancers found in very thin endometrium. She refused as she recently had this done. I recommended we request records to confirm and if not, recommend she have this done. She understood and agreed and signed ANALY today. Iliac crest bone pain 02/23/2018 Overview (05/04/2024): Last Assessment & Plan: Encouraged patient to continue follow-up with orthopedics and PT as pain appears to be MSK related and not facility maintenance worker related. Right hip pain 04/03/2017 Osteoarthritis of hip 04/22/2012 Overview (05/04/2024): Osteoarthritis of hip - 715.15 Immunizations Name Administration Dates Next Due Influenza Quadrivalent, 0.5m l, preservative free (Fluarix; FluLaval; Fluzone) ages 6mo and older (Afluria) 3yo and older 03/28/2021,03/03/2019,04/16/2018 Influenza Whole 04/06/2009 Influenza trivalent, MDCK, 0 .5mL, preservative free (Flucelvax) 6mo and older 05/20/2024 Influenza trivalent, with pr eservative (Fluzone; Afluria) 6mo and older 05/13/2008 Influenza, live, intranasal, quadrivalent (FluMist) 2yo to less than 50yo 04/02/2022,04/30/2017 Pneumococcal polysaccharide 23 valent (Pneumovax 23) 2yo and older 11/03/2009,05/13/2008 Td, Unspecified 03/16/2008 Surgical History Surgery Date Site/Laterality Comments HIP ARTHROPLASTY 2010 PROCEDURE: HISTORICAL HIP REPLACEMENT BREAST REDUCTION 1999 PROCEDURE: IN BREAST REDUCTION OTHER SURGICAL HISTORY 07/11/2017 PROCEDURE: IN ENDOSCOPY UPPER SMALL INTESTINE; COMMENT: Biopsy c/w gastritis Medical History Medical History Date Comments Asthma DX:Asthma Hypertension DX:Hypertension Ulcer of the stomach and intestine DX:Ulcer of the stomach and intestine Depression DX:Depression Anxiety DX:Anxiety Anemia, iron deficiency DX:Anemi a, iron deficiency Glaucoma DX:Glaucoma Osteoporosis DX:Osteoporosis Arthritis DX:Arthritis Migraine aura, persistent DX:Jasper faby aura, persistent Pap smear, low-risk 04/2015 DX:Pap smear , low-risk; COMMENT: HPV negative, Dr. Bermeo Fibromyalgia DX:Fibromyalgia GERD (gastroesophageal reflux disease) DX:GERD (gastroesophageal reflux disease) T2DM (type 2 diabetes mellit us) ([facility]) DX:T2DM (type 2 diabetes christina litus) ([facility]) Family History Medical History Relation Name Comments Coronary artery disease Aunt paternal Leukemia Brother Other: Diabetes mellitus without mention of complication type II or unspecifiied, not state as uncontrolled Father Prostate cancer Father Breast cancer Mother 60s diagnosed at 6 7, had single mastectomy Hypertension Mother 60s Other: Diabetes mellitus, Ty pe II Mother 60s Other: heart murmur Mother 60s Stroke Mother's side 1 uncle, age 5 1 Thyroid disease Mother's side 2 aunts No Known Problems Sister Colon cancer Neg Hx Ovarian cancer Neg Hx Relation Name Status Comments Aunt paternal Alive Brother Alive Father Mother 60s Alive Mother's side 1 Mother's side 2 Sister Alive Social History Tobacco Use Types Packs/Day Years Used Date Smoking Tobacco: Never Smokeless Tobacco: Never Tobacco Cessation:Counseling Given: Not Answered Alcohol Use Standard Drinks/Week Comments No 0 (1 standard drink = 0.6 oz pur e alcohol) Comments No Sex and Gender Information Value Date Recorded Sex Assigned at Not on file Legal Sex Female 3:50 AM EST Gender Identity Not on file Sexual Orientation Not on file Obstetrics History Last Filed Vital Signs Vital Sign Reading Time Taken Comments Blood Pressure 128/74 05/20/2024 2:15 PM EST Pulse 78 05/20/2024 2:02 PM EST Temperature - - Respiratory Rate 16 05/20/2024 2:02 PM EST Oxygen Saturation - - Inhaled Oxygen Concentration - - Weight 81.8 kg (180 lb 4.8 oz) 05/20/2024 2:02 P M EST Height 152.4 cm (5') 09/04/2023 9:34 AM EST Body Mass Index 35.21 09/04/2023 9:34 AM EST Plan of Treatment Upcoming Encounters Date Type Department Care Team (Late st Contact Info) Description 11/01/2024 2:00 PM EDT Office Visit Internal Medicine - [address] [phone] Ria Bernstein NP [address] [place] [id number] Health Maintenance Due Date Last Done Comments Breast Cancer Screening 1965 Pneumococcal Vaccine: 50+ Years (2 of 2 - PCV) 01/04/2016 01/03/2015, 11/03/2009, 05/13/2008 Pneumococcal Vaccine: Pediatrics (0 to 5 Years) and At-Risk Patients (6 to 64 Years) (2 of 2 - PCV) 01/04/2016 01/03/2015, 11/03/2009, 05/13/2008 Zoster Vaccines (2 of 2) 12/29/2017 11/03/2017 Cholesterol Screening (Lipid Panel) 06/14/2022 Colorectal Cancer Screening: Colonoscopy 06/14/2022 Depression Screening 06/14/2022 HIV Screening 06/14/2022 Hepatitis C Screening 06/14/2022 Social Influencers of Health Screening 06/14/2022 Medicare Annual Wellness Visit 01/21/2023 01/21/2022 RSV Immunization Patients 60+ Years Old (1 - Risk 60-74 years 1-dose series) 2023 Hypertension/CHF/CAD Annual BMP Blood Test 05/20/2025 05/20/2024, 07/30/2023 Cervical Cancer Screening: HPV 01/13/2028 01/12/2023 DTaP,Tdap,and Td Vaccines (4 - Td or Tdap) 11/14/2028 11/14/2018, 06/12/2014, 03/16/2008 COVID-19 Vaccine Completed 03/16/2024, , 06/09/2021, Additional history exists Influenza Vaccine Completed 05/20/2024, , 04/02/2022, Additional history exists HIB Vaccines Aged Out No longer eligi ble based on patient's age to complete this topic HPV Vaccines Aged Out No longer eligi ble based on patient's age to complete this topic Hepatitis A Vaccines Aged Out No long er eligible based on patient's age to complete this topic Hepatitis B Vaccines Aged Out No long er eligible based on patient's age to complete this topic IPV Vaccines Aged Out No longer eligi ble based on patient's age to complete this topic MMR Vaccines Aged Out No longer eligi ble based on patient's age to complete this topic Meningococcal ACWY Vaccine Aged Out N o longer eligible based on patient's age to complete this topic Meningococcal B Vacine Aged Out No lo nger eligible based on patient's age to complete this topic RSV Immunization Patients Under 20 months Aged Out No longer eligible based on patient's age to complete this topic Varicella Vaccines Aged Out No longer eligible based on patient's age to complete this topic Procedures Procedure Name Priority Date/Time Associated Diagnosis Comments BASIC METABOLIC PANEL Routine 05/20/2024 2:28 PM EST Primary hypertension HM HPV Routine 01/12/2023 from Last 3 Months or Most Recently Relevant to Health Maintenance Results * Basic metabolic panel (05/20/2024 2:28 PM EST) Sodium 139 133 - 145 mmol/L LAB CHEMISTRY METHOD 05/20/2024 5:33 PM [facility] Potassium 4.1 3.5 - 5.5 mmol/L LAB CHEMISTRY METHOD 05/20/2024 5:33 PM [facility] Chloride 104 96 - 110 mmol/L LAB CHEMISTRY METHOD 05/20/2024 5:33 PM [facility] CO2 30 21 - 32 mmol/L LAB CHEMISTRY METHOD 05/20/2024 5:33 PM [facility] Anion Gap 5 3 - 11 LAB CHEMISTRY METHOD 05/20/2024 5:33 PM [facility] Glucose 90 70 - 100 mg/dL LAB CHEMISTRY METHOD 05/20/2024 5:33 PM [facility] BUN 22 5 - 25 mg/dL LAB CHEMISTRY METHOD 05/20/2024 5:33 PM [facility] Creatinine 0.94 0.50 - 1.10 mg/dL LAB CHEMISTRY METHOD 05/20/2024 5:33 PM [facility] eGFR 70 >=60 mL/min/1. 73m2 LAB CHEMISTRY METHOD 05/20/2024 5:33 PM [facility] Comment:Calculation based on the??Chronic Kidney Disease Epidemiology Collaboration (CKD-EPI) equation refit??without adjustment for race. BUN/Creatinine Ratio 23.4 LAB CHEMISTRY METHOD 05/20/2024 5:33 PM EST [facility] Calcium 9.3 8.5 - 10.5 mg/dL LAB CHEMISTRY METHOD 05/20/2024 5:33 PM EST [facility] Blood Venous blood specimen / Unknown Venipuncture / Unknown 05/20/2024 2:28 PM EST 05/20/2024 2:28 PM EST Edilberto LEBLANC LAB BLOOD ORDERABLES Fi nal Result [facility] [address] [place] [address], [place] [phone] * Cervical Cancer Screening: HPV (01/12/2023) [facility] Cervical Cancer Screening: HPV negative, abstracted Historical Provider HEALTH MAINTENANCE Final Result from Last 3 Months or Most Recently Relevant to Health Maintenance Insurance MEDICAID - [place] MEDICARE Care Teams Apprentice Pattern Maker Relationship Specialty Start Date End Date Mary Traylor DO [address] [place] [address] PCP - General 02/05/23
--- OUTSIDE RECORDS SUMMARY | 2024-08-23 15:13 | XMS_ITS | Clinical Summary ---
Author Organization [facility] Address [address] [place] [address] Care Team Providers Care Telescope Operator Name Role Phone Nilesh Riddle MD Primary Care Provider [phone] Allergies Active Allergy Reactions Criticality Noted Date Comments Marvin Inhibitors 04/03/2017 Ibuprofen 04/03/2017 Prednisone 04/03/2017 Medications Medication Sig Dispensed Refills Start Date End Date Status acetaminophen-codeine (TYLENOL #3) 300-30 MG per tablet TK 1 T PO Q 8 H FOR 7 DAYS 0 03/14/2017 Active VENTOLIN HFA 108 (90 BASE) MCG/ACT inhaler INL 1 TO 2 PFS PO Q 4 TO 6 H PRN UTD 2 02/23/2017 Active amoxicillin (AMOXIL) 250 MG capsule TK 1 C PO Q 8 H FOR 7 DAYS 0 03/14/2017 Active amoxicillin (AMOXIL) 500 MG capsule TAKE 4 CAPSULES BY MOUTH ONE DOSE 0 03/14/2017 Active baclofen (LIORESAL) 20 MG tablet TK 1 T PO BID 6 03/04/2017 Active ferrous sulfate 325 (65 FE) MG tablet TK 1 T PO QD 2 02/27/2017 Activ e fluticasone (FLONASE) 50 MCG/ACT nasal spray 0 01/14/2017 Active hydrochlorothiazide (HYDRODIURIL) tablet 25 mg TK 1 T PO D 1 02/27/2017 Active losartan (COZAAR) tablet 50 mg 0 01/08/2017 Active metoprolol tartrate (LOPRESSOR) 25 MG tablet TK 1 T PO D 1 03/11/2017 Active metoprolol tartrate (LOPRESSOR) 50 MG tablet 0 04/02/2017 Active omeprazole (PRILOSEC) 20 MG capsule TK 1 C PO QD 3 03/13/2017 Active BOTOX 200 UNITS SOLR injection 0 03/02/2017 Active PARoxetine (PAXIL-CR) 25 MG 24 hr tablet TK 1 T PO D 0 03/16/2017 Activ e tiZANidine (ZANAFLEX) 4 MG tablet 0 02/22/2017 Active traMADol (ULTRAM) 50 MG tablet 0 02/22/2017 Active PARoxetine (PAXIL-CR) 37.5 MG 24 hr tablet TK 1 T PO D 0 05/13/2017 Act felicita cyclobenzaprine (FLEXERIL) 5 MG tablet TK 1 TO 2 TS PO TID 0 04/15/2017 Activ e Active Problems Problem Noted Date Diagnosed Date Right hip pain 04/03/2017 Family History Medical History Relation Name Comments Cancer Other unknown Diabetes Other unknown Heart disease Other unknown Hypertension Other unknown Relation Name Status Comments Other unknown Social History Tobacco Use Types Packs/Day Years Used Date Smoking Tobacco: Never Assessed Sex and Gender Information Value Date Recorded Sex Assigned at Not on file Gender Identity Not on file Sexual Orientation Not on file Last Filed Vital Signs Vital Sign Reading Time Taken Comments Blood Pressure - - Pulse - - Temperature - - Respiratory Rate - - Oxygen Saturation - - Inhaled Oxygen Concentration - - Weight 72.6 kg (160 lb) 04/03/2017 1:23 PM EDT Height 152.4 cm (5') 04/03/2017 1:23 PM EDT Body Mass Index 31.25 04/03/2017 1:23 PM EDT Plan of Treatment Health Maintenance Due Date Last Done Comments Hepatitis C Screening 1965 COVID-19 Vaccine (#1) 1965 Depression Screening 1975 Preventative Health Evaluation 1981 Cervical Cancer Screening (Pap Smear) 1984 DTap / Tdap / Td (1 - Tdap) 03/17/2008 03/16/2008 Colon Cancer Screening (Colonoscopy) 2008 Breast Cancer Screening (Mammogram) 2013 Shingrix-Zoster Vaccine (1 o f 2) 2013 Influenza Vaccine (#1) 2024 05/13/2008 RSV Adult > 60+ Yrs or (1 - 1-dose 75+ series) 2038 Pneumococcal Vaccine Aged Out 11/03/2009, 05/13/2008 No longer eligible based on patient's age to complete this topic Hepatitis B Vaccines Aged Out No long er eligible based on patient's age to complete this topic RSV Ped < 20 months Aged Out No longe r eligible based on patient's age to complete this topic Care Teams Telescope Operator Relationship Specialty Start Date End Date Nilesh Riddle MD PCP - General Internal Medicine 02/26/17
== END 2024-08-23 15:28 | disposition home or self-care (01) ==
PROVIDERS: PCP Internal Medicine; Visit Provider Psychiatry & Neurology Neurology
DX: G43.E19 Chronic migraine with aura, intractable, without status migrainosus (principal)
CPT/HCPCS: 64615

== ENCOUNTER → 2024-08-23 14:10 | Outpatient (BNVA) | payer MEDICARE, MEDICAID, SELFPAY | PROVIDERS: PCP Internal Medicine; Visit Provider Psychiatry & Neurology Neurology | DX: G43.E19 Chronic migraine with aura, intractable, without status migrainosus (principal) | CPT/HCPCS: 64615; 99211; J0585 ==

== ENCOUNTER 2024-10-17 14:33 | Outpatient (AMB) | payer MEDICARE, MEDICAID, SELFPAY ==
[2024-10-17 14:37] VITALS: BP 176/90; PULSE 69; RESP 16; O2SAT 98; BMI 34.2
--- NOTE | 2024-10-17 14:37 | A.OFFVIS_ITS ---
Vital Signs 10/17/24 14:37 Height 5 ft Weight 175 lb BMI 34.2 BP 176/90 H Blood Pressure Location Lt brachial Position Sitting Respiration 16 Pulse 69 Pulse Source Pulse Oximeter Pulse Oximetry (%) 98 Oxygen Delivery Method Room Air Intake Visit Reasons: Presence of right artificial hip joint Acute Care Physician Required: No Allergies SILVER Inhibitors [SILVER INHIBITORS] Allergy (Severe, Verified 10/17/24 14:40) SWELLING celecoxib Allergy (Severe, Verified 10/17/24 14:40) Swelling ibuprofen [From MOTRIN] Allergy (Severe, Verified 10/17/24 14:40) SWELLING prednisone [PREDNISONE] Allergy (Severe, Verified 10/17/24 14:40) SWELLING Contrast dye Allergy (Severe, Uncoded 10/17/24 14:40) Anaphylaxis Medication List - Last Reconciled 10/17/24 by Daniella Rousseau LPN acetaminophen 650 mg (2 x 325 mg) PO Q6H PRN 30 days albuterol sulfate 90 mcg/actuation (ProAir HFA) 2 puffs inhalation QID PRN cholecalciferol (vitamin D3) 1 cap PO DAILY clonidine HCl 0.1 mg PO BEDTIME PRN ferrous sulfate 1 tab PO Q OTHER DAY fluticasone propionate 50 mcg/actuation 1 spray intranasal BEDTIME hydrochlorothiazide 1 tab PO QAM losartan 100 mg PO DAILY metoclopramide HCl 5 mg PO Q4-6H PRN 7 days metoprolol tartrate 1 tab PO DAILY omeprazole 1 cap PO DAILY onabotulinumtoxinA (Botox) 200 units subcut .Q 3 months paroxetine HCl 20 mg PO DAILY tizanidine 4 mg PO BID PRN 30 days HPI Comments Details: Yue is very pleasant 59 years old female who presents in my office with complains on pain in the lower back on the right side with the radiation down to the right lower extremity on the lateral and posterior surface of the right hip to the level of the knee but not below that no level. This patient reports her pain today 04/14. She was referred here by Orthopedic surgery after total hip replacement not alleviate her pain. She reports that she can not sleep normally can not do activities of daily living she is able to take care of herself but she can not function normally. She is on permanent disability. She needs walker for ambulation most of the time. In terms of tissue damage he describes her pain as stabbing, lancinating, tugging, pulling, wrenching sensation. She had the last year extensive physical therapy which did not help her pain. She also had extensive chiropractic manipulations which helps her pain minimally and for the short period of time. She also had acupuncture which helps her pain minimally and further short period of time. She had some sort of a steroid injections in [facility] pain management. She had muscle relaxants, NSAIDs, and Tylenol to help her pain. She denies any help from those medications. She never had diagnostic SI joint injections. She also has a history of L4-5 fusion performed in year 1999. So it might be also postlaminectomy syndrome. She never since 1999 had MRI of the lumbar spine. She reports that sometimes she feel the pain shooting down the leg all the way down to her pinky toe on the right. That could be radiculopathic pain. Past medical history significant for headaches anemia asthma and shortness of breath as well as arthritis. Past surgical history significant for right hip total replacement, left hip femur fracture ORIF in 2010, and L3-L4 neurosurgical procedure in 1999. She denies smoking cigarettes denies drinking alcohol drinks some coffee and caffeinated beverages sometimes but she denies recreational drugs. [facility] Medical History Hypersomnia Snoring Osteoarthritis of right hip Arthritis Back pain Vitamin D deficiency Anemia Peptic ulcer GERD (gastroesophageal reflux disease) Habitual snoring Fibromyalgia Anxiety Chronic migraine without aura Asthma Hypertension Surgical History History of back surgery H/O colonoscopy Status post bilateral breast reduction Status post arthroscopy of right shoulder History of left hip replacement Social History Household Members: None Housing: Apartment Are you a primary pharmacist critical care to a significant other at home: No Do you presently have visiting nurse or other home services: No Alcohol intake: never Patient Tobacco Use Status: Never used Tobacco service: No Current occupational status: disabled 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 occupation: right 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 Review of Systems Const All systems reviewed & are unremarkable except as noted in HPI and below ENT Reports Normal hearing present Neuro Reports Normal hearing present, Denies Abnormal speech present, Denies confusion and Denies Sensory deficit (Neuro) Psych Denies confusion Physical Exam Vital Signs: Last Vital Signs Pulse 69 04/14/25 14:37 Resp 16 10/17/24 14:37 BP 176/90 H 10/17/24 14:37 Pulse Ox 98 10/17/24 14:37 Oxygen Delivery Method Room Air 10/17/24 14:37 BMI result Body Mass Index 34.2 Const General: no acute distress; No confusion Orientation/consciousness: patient oriented x3 and No confusion Eyes General: appearance normal, both eyes and all related structures Pupils: Equal, round and reactive pupils present EOM: EOMs intact bilaterally Neck Neck: Yes full ROM Chest Chest palpation & inspection: normal inspection of the chest Resp Effort & Inspection: normal respiratory effort, able to speak in complete sentences, normal respiratory pattern, no audible wheezes and no cough Cardio Jugular venous distension: no JVD GI Inspection: Yes normal to inspection Back/Spine/Pelvis Other: Tenderness on palpation in paraspinal spinal region lumbar spine. Tenderness on palpation in projection of the right sacroiliac joint. Flexing forward and flexing backwards aggravate her pain flexing forward aggravate her pain more than flexing backwards. SLR is positive on the right and negative on the left. Flexion of the right foot is aggravating her pain even more at maximal SLR. Roberto Carlos test is positive on the right. Pelvic compression and pelvic distraction tests are positive on the right. Thigh thrust test is positive on the right. Neuro General: patient oriented x3, gait normal and No confusion Cranial nerves: Yes CN's II-XII intact bilaterally, Yes Equal, round and reactive pupils present, Yes Normal hearing present and Yes Ability to bilaterally elevate shoulders present Speech: No Abnormal speech present Gait exam (Neuro): Normal gait present Motor exam (neuro): 5/5 motor strength present throughout Sensory Exam: No Sensory deficit (Neuro) Extrem General: No pedal edema Psych Speech and movement: Normal speech and movement present Affect: normal affect Attitude: cooperative Thought process: Normal thought process present Thought content: Normal thought content present Insight: Good insight present (Psych) Judgement: Good judgement present (Psych) Assessment & Plan Assessment & Plan (1) Postlaminectomy syndrome, lumbar: Code(s): M96.1 - Postlaminectomy syndrome, not elsewhere classified Category: Medical (2) Sacroiliitis: Code(s): M46.1 - Sacroiliitis, not elsewhere classified Category: Medical (3) Sacroiliac joint dysfunction of right side: Code(s): M53.3 - Sacrococcygeal disorders, not elsewhere classified Category: Medical (4) Chronic pain syndrome: Code(s): G89.4 - Chronic pain syndrome Category: Medical Plan This patient received multiple steroid injections in the past, those were not effective to help her pain. She never had sacroiliac joint injection. She had acupuncture, physical therapy, chiropractic manipulations all in vein to help her pain. Her pain is chronic and relentless and in severity is 8 out of 10. On physical exam I think this patient has sacroiliitis. Postlaminectomy syndrome can not be excluded either. I will send this patient for MRI of the lumbar spine. I also offered this patient diagnostic sacroiliac joint injection on the right. I will see this patient in the office immediately after the procedure. Orders: Orders MR lumbar spine wo/w con Today M96.1 - Postlaminectomy syndrome, not elsewhere classified Patient Instructions: I here by testify that I spent 45 minutes in conversation with this patient as well as planning her care and organizing this note. Coding Level of Care Code New Pt Level 4 (95101) Diagnoses Postlaminectomy syndrome, lumbar M96.1 Sacroiliitis M46.1 Sacroiliac joint dysfunction of right side M53.3 Chronic pain syndrome G89.4
--- OUTSIDE RECORDS SUMMARY | 2024-10-17 16:57 | XMS_ITS | Clinical Summary ---
Author Organization [place] [address] [address] [facility] Building Address [address] [place], [place] [address]mary[place] [address] Phone Care Team Providers Care Calendar Control Clerk Blood Bank Name Role Phone Mary Traylor DO Primary Care Provider [phone] Allergies Active Allergy Reactions Criticality Noted Date Comments Marvin Inhibitors Swelling,Unknown 10/03/2008 Ibuprofen Unknown,Swelling 10/03/2008 Other Reaction(s): MARVIN inhibitor Iodinated Contrast Media 01/23/2020 Prednisone Swelling 07/29/2016 Medications ondansetron (ZOFRAN) 4 mg tablet Take 1 tablet (4 mg total) by mouth. 4 Active losartan (COZAAR) 100 mg tablet Take 1 tablet (100 mg total) by mouth 1 (one) time each day. 4 Active lidocaine (LIDODERM) 5 % patch Place 1 patch on the skin. 4 Active ferrous sulfate 325 mg (65 mg elemental iron) tablet Take 1 tablet (325 mg total) by mouth every other day. 7 Active fluticasone propionate (FLONASE) 50 mcg/actuation nasal spray 7 Active diclofenac (VOLTAREN) 1 % topical gel Apply 4 g topically 4 (four) times a day. 480 g 5 4 11/17/19 25 Active omeprazole (PriLOSEC) [address] capsule Take 1 capsule (40 mg total) by mouth 1 (one) time each day. 90 each 1 4 11/17/19 25 Active cholecalciferol (VITAMIN D-3) 50 mcg (2,000 unit) capsule Take 1 capsule (2,000 Units total) by mouth 1 (one) time each day. 90 each 1 4 11/17/19 25 Active albuterol HFA (PROAIR HFA ; PROVENTIL HFA ; VENTOLIN HFA) 90 mcg/actuation inhaler Inhale 2 puffs by mouth every 4 (four) hours if needed for wheezing. 20 g 1 4 11/17/19 25 Active budesonide (Pulmicort Flexhaler) 180 mcg/actuation inhaler Inhale 1 puff by mouth 2 (two) times a day. Rinse mouth with water after use to reduce aftertaste and incidence of candidiasis. Do not swallow. 3 each 1 4 11/17/19 25 Active PARoxetine (PAXIL) 20 mg tablet TAKE 1 TABLET BY MOUTH DAILY 90 tablet 1 5 Active metoprolol succinate (TOPROL-XL) 50 mg 24 hr tablet TAKE ONE TABLET BY MOUTH DAILY 90 tablet 1 5 Active hydroCHLOROthia zide (HYDRODIURIL) 25 mg tablet TAKE 1 TABLET BY MOUTH DAILY 90 tablet 5 Active amitriptyline (ELAVIL) 10 mg tablet TAKE 1 TABLET(10 MG) BY MOUTH AT BEDTIME 90 tablet 5 Active cloNIDine (CATAPRES) 0.1 mg tablet Take 1 tablet (0.1 mg total) by mouth 2 (two) times a day. 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 Right hip pain 04/03/2017 Osteoarthritis of hip 04/22/2012 Overview (05/04/2024): Osteoarthritis of hip - 715.15 Encounters Date Type Department Care Team Description 08/26/2024 Telephone Internal Medicine - [facility] [address] [place] [address] Mary Traylor, New Med Request from Last 3 Months Immunizations Name Administration Dates Next Due Influenza [...] HISTORICAL HIP REPLACEMENT BREAST REDUCTION 1999 PROCEDURE: [place] BREAST REDUCTION OTHER SURGICAL HISTORY 07/11/2017 PROCEDURE: [place] ENDOSCOPY UPPER SMALL INTESTINE; COMMENT: Biopsy c/w [...] disease) T2DM (type 2 diabetes mellit us) ([facility] V24, [facility] V28) DX:T2DM (type 2 diabetes christina litus) ([facility]) Family History Medical History Relation Name Comments [...] PM EDT Office Visit Internal Medicine - [place] [address] [place], [place] [phone] Ria Bernstein NP [address] [place] [address] 12/15/2024 3:00 PM EDT Office Visit Bariatric Surgery - [place] [address] [phone] Nick Morales MD [address] [address] [phone] (work) Health Maintenance Due Date Last Done Comments [...] Annual Wellness Visit 01/21/2023 01/21/2022 RSV Immunization Adult Patients (1 - Risk 60-74 years 1-dose series) [...] age to complete this topic Meningococcal B Vaccine Aged Out No l onger eligible based on patient's age to complete [...] mmol/L LAB CHEMISTRY METHOD 05/20/2024 5:33 PM [facility] Potassium 4.1 3.5 - 5.5 mmol/L LAB CHEMISTRY METHOD 05/20/2024 5:33 PM [facility] Chloride 104 96 - 110 mmol/L LAB CHEMISTRY METHOD 05/20/2024 5:33 PM [facility] CO2 30 21 - 32 mmol/L LAB CHEMISTRY METHOD 05/20/2024 5:33 PM [facility] Anion Gap 5 3 - 11 LAB CHEMISTRY METHOD 05/20/2024 5:33 PM [facility] Glucose 90 70 - 100 mg/dL LAB CHEMISTRY METHOD 05/20/2024 5:33 PM [facility] BUN 22 5 - 25 mg/dL LAB CHEMISTRY METHOD 05/20/2024 5:33 PM [facility] Creatinine 0.94 0.50 - 1.10 mg/dL LAB CHEMISTRY METHOD 05/20/2024 5:33 PM [facility] eGFR 70 >=60 mL/min/1. 73m2 LAB CHEMISTRY METHOD 05/20/2024 5:33 PM [facility] Comment:Calculation based on the??Chronic Kidney Disease Epidemiology Collaboration (CKD-EPI) equation refit??without adjustment for race. BUN/Creatinine Ratio 23.4 LAB CHEMISTRY METHOD 05/20/2024 5:33 PM EST [facility] Calcium 9.3 8.5 - 10.5 mg/dL LAB CHEMISTRY METHOD 05/20/2024 5:33 PM EST [facility] Blood Venous blood specimen / Unknown Venipuncture / Unknown 05/20/2024 2:28 PM EST 05/20/2024 2:28 PM EST [facility] LAB BLOOD ORDERABLES Fi nal Result [facility] ([facility]) [facility] [address] [place] [address], [place] [phone] * Cervical Cancer Screening: HPV (01/12/2023) [facility] Cervical Cancer Screening: HPV negative, abstracted Historical Provider HEALTH MAINTENANCE Final Result from Last 3 Months or Most Recently Relevant to Health Maintenance Insurance [place] - [place]ICARE Care Teams Calendar Control Clerk Blood Bank Relationship Specialty Start Date End Date Mary Traylor DO [address] [facility] [place] [address] PCP - General 02/05/23
--- OUTSIDE RECORDS SUMMARY | 2024-10-17 16:57 | XMS_ITS | Clinical Summary ---
Author Organization [facility] Address [address] [place] [address] Care Team Providers Care Manager Hospice Name Role Phone Nilesh Riddle MD Primary Care Provider [phone] Allergies Active Allergy Reactions Criticality Noted Date [...] age to complete this topic Care Teams Manager Hospice Relationship Specialty Start Date End Date Nilesh Riddle MD PCP - General Internal Medicine 02/26/17
== END 2024-10-17 15:13 | disposition home or self-care (01) ==
LOC: HO.PMC 14:33
PROVIDERS: PCP Internal Medicine; Visit Provider Anesthesiology
DX: M96.1 Postlaminectomy syndrome, not elsewhere classified (principal); M46.1 Sacroiliitis, not elsewhere classified; M53.3 Sacrococcygeal disorders, not elsewhere classified; G89.4 Chronic pain syndrome
CPT/HCPCS: 99204

== ENCOUNTER → 2024-10-17 14:33 | Outpatient (BNVA) | payer MEDICARE, MEDICAID, SELFPAY | PROVIDERS: PCP Internal Medicine; Visit Provider Anesthesiology | DX: M96.1 Postlaminectomy syndrome, not elsewhere classified (principal); M46.1 Sacroiliitis, not elsewhere classified; M53.3 Sacrococcygeal disorders, not elsewhere classified; G89.4 Chronic pain syndrome | CPT/HCPCS: 99202 ==

== ENCOUNTER 2024-10-29 12:49 | Outpatient (REF) | payer MEDICARE, MEDICAID, SELFPAY ==
--- OUTSIDE RECORDS SUMMARY | 2024-10-29 12:52 | XMS_ITS | Clinical Summary ---
Author Organization [facility] Address [address] [place] [address] Care Team Providers Care Research Chef Name Role Phone Nilesh Riddle MD Primary Care Provider [phone] Allergies Active Allergy Reactions Criticality Noted Date [...] age to complete this topic Care Teams Research Chef Relationship Specialty Start Date End Date Nilesh Riddle MD PCP - General Internal Medicine 02/26/17
--- OUTSIDE RECORDS SUMMARY | 2024-10-29 12:52 | XMS_ITS | Clinical Summary ---
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 Right hip pain 04/03/2017 Osteoarthritis of hip 04/22/2012 Overview (05/04/2024): Osteoarthritis of hip - 715.15 Encounters Date Type Department Care Team Description 08/26/2024 Telephone Internal Medicine - [facility] [address] [place] [address] Mary Traylor, New Med Request from [...] HISTORICAL HIP REPLACEMENT BREAST REDUCTION 1999 PROCEDURE: [place] BREAST REDUCTION OTHER SURGICAL HISTORY 07/11/2017 PROCEDURE: [place] ENDOSCOPY UPPER SMALL INTESTINE; COMMENT: Biopsy c/w [...] disease) T2DM (type 2 diabetes mellit us) ([facility] V24, [facility] V28) DX:T2DM (type 2 diabetes christina litus) ([facility]) Family History Medical History Relation [...] PM EDT Office Visit Internal Medicine - [facility] [address] [place], [place] [phone] Ria Bernstein NP [address] [place] [address] 12/15/2024 3:00 PM EDT Office Visit Bariatric Surgery - [place] [address] [phone] Nick Morales MD [address] [address] [phone] (work) Health Maintenance Due Date Last Done [...] mmol/L LAB CHEMISTRY METHOD 05/20/2024 5:33 PM [facility] Potassium 4.1 3.5 - 5.5 mmol/L LAB CHEMISTRY METHOD 05/20/2024 5:33 PM [facility] Chloride 104 96 - 110 mmol/L LAB CHEMISTRY METHOD 05/20/2024 5:33 PM [facility] CO2 30 21 - 32 mmol/L LAB CHEMISTRY METHOD 05/20/2024 5:33 PM [facility] Anion Gap 5 3 - 11 LAB CHEMISTRY METHOD 05/20/2024 5:33 PM [facility] Glucose 90 70 - 100 mg/dL LAB CHEMISTRY METHOD 05/20/2024 5:33 PM [facility] BUN 22 5 - 25 mg/dL LAB CHEMISTRY METHOD 05/20/2024 5:33 PM [facility] Creatinine 0.94 0.50 - 1.10 mg/dL LAB CHEMISTRY METHOD 05/20/2024 5:33 PM [facility] eGFR 70 >=60 mL/min/1. 73m2 LAB CHEMISTRY METHOD 05/20/2024 5:33 PM [facility] Comment:Calculation based on the??Chronic Kidney Disease Epidemiology Collaboration (CKD-EPI) equation refit??without adjustment for race. BUN/Creatinine Ratio 23.4 LAB CHEMISTRY METHOD 05/20/2024 5:33 PM EST [facility] Calcium 9.3 8.5 - 10.5 mg/dL LAB CHEMISTRY METHOD 05/20/2024 5:33 PM EST [facility] Blood Venous blood specimen / Unknown Venipuncture / Unknown 05/20/2024 2:28 PM EST 05/20/2024 2:28 PM EST [facility] LAB BLOOD ORDERABLES Fi nal Result [facility]) [facility] [address] [place] [address], [place] [phone] * Cervical Cancer Screening: HPV (01/12/2023) [facility] Cervical Cancer Screening: HPV negative, abstracted Historical Provider HEALTH MAINTENANCE Final Result from Last 3 Months or Most Recently Relevant to Health Maintenance Insurance [place] Care Teams Equipment Sales Specialist Relationship Specialty Start Date End Date Mary Traylor DO [address] [place], [place] [address] [address] PCP - General 02/05/23
--- OUTSIDE RECORDS SUMMARY | 2024-10-29 12:52 | XMS_ITS | Continuity of Care Document ---
Author Organization [facility] ter Address [address] [place] [address]- Care Team Providers Care Correctional Captain Name Role Phone Adria ANDERSON, Esthela N Primary Care Physician Encounter [facility] Date(s): 10/26/24 - 10/26/24 [facility] [address] [place] [address]- Encounter Diagnosis Migraine(Final) - 10/26/24 Lower back pain(Final) - 10/26/24 Discharge Disposition: A-D/C Home Attending Physician: Cedrick Coy MD Admitting Physician: Cedrick Coy MD Referring Physician: Not on Staff, Referring MD Encounter Type: Disch ES Allergies, Adverse Reactions, Alerts Substance Criticality Severity Reaction Reaction Severity Status ibuprofen SILVER inhibitor unkown Active predniSONE Swelling - dhaval a - symptom Active Contrast Dye Active angiotensin converting enzyme inhibitors facial swelling Active Immunizations Given and Recorded Vaccine Date Status Refusal Reason pneumococcal 23-valent vaccine 1 11/03/09 Given Influenza Vaccine (oldterm) 2 04/06/09 Given influenza virus vaccine, inactivated 05/13/08 Give n Pneumococcal Vaccine (oldterm) 05/13/08 Given tetanus-diphtheria toxoids (Td) 3 03/16/08 Given 1Result Comment: lot [id number] exp [id number] 2Admin Note: vis 02/13/09 3Admin Note: vis GIVEN 12/13/93 Medications albuterol 0.083% inhalation solution 3 mL = 2.5 mg, Neb, Every 6 hours, PRN as needed for wheezing, # 90 mL, 0 Refills, Maintenance, 05/18/19 1:39:15 PM EST, Solution Start Date: 05/18/19 Status: Ordered Quantity: 90.0 Unit: mL Repeat number: 1 cloNIDine 0.1 mg oral tablet 0.1 mg, By Mouth, 4 times a day, # 30 tablet, Refills 0, Maintenance, 09/02/21 3:11:00 PM EST, Partial fill upon patient request if the prescription is for a schedule II opioid drug. Start Date: 09/02/21 Status: Ordered Quantity: 30.0 Unit: tablet Repeat number: 1 Cymbalta 30 mg oral enteric coated capsule 2 capsule = 60 mg, By Mouth, Daily, 0 Refills, Maintenance, 10/12/18 1:24:46 PM EDT Start Date: 10/12/18 Status: Ordered Repeat number: 1 Ferrous Sulfate = 325 mg, By Mouth, 2 times a day, take with orange juice, # 60 tablet, 4 Refills, Soft Stop, I-D anemia, 03/01/09 12:37:10 PM EDT Start Date: 03/01/09 Stop Date: 03/31/09 Status: Ordered Quantity: 60.0 Unit: tablet Repeat number: 5 Flovent HFA Inhalation, 2 times a day, 0 Refills, Maintenance, 10/25/12 1:31:17 PM EDT Start Date: 10/25/12 Status: Ordered Repeat number: 1 Golytely - oral powder for reconstitution See Instructions, Drink 240mL every 15 minutes until gone, # 4,000 mL, 0 Refills, Maintenance, 02/11/22 4:28:00 PM EDT, [facility] #[id number], Partial fill upon patient request if the prescription is for a schedule II opioid drug., Drink 240mL every 15 minutes until gone, 153, cm, 01/16/22 12:58 :00 EDT, Height Start Date: 02/11/22 Status: Ordered Quantity: 4000.0 Unit: mL Repeat number: 1 hydrochlorothiazide 25 mg oral tablet 1 tablet = 25 mg, By Mouth, Daily, # 30 tablet, 11 Refills, Maintenance, 11/20/11 3:14:34 PM EDT, Tablet, [facility] [id number] Start Date: 11/20/11 Stop Date: 11/14/12 Status: Ordered Quantity: 30.0 Unit: tablet Repeat number: 12 losartan 50 mg oral tablet 1 tablet = 50 mg, By Mouth, Daily, # 30 tablet, 0 Refills, Maintenance, 07/15/19 11:42:00 AM EST, Tablet Start Date: 07/15/19 Status: Ordered Quantity: 30.0 Unit: tablet Repeat number: 1 metoprolol 50 mg oral tablet, extended release 50 mg, 1, tablet, By Mouth, Daily, Please contact your PCP with this change., # 30 tablet, Refills 1, Tot. Refills 1, Maintenance, 07/17/19 8:38:00 AM EST, Route to Pharmacy Electronically, [facility], 153, cm, 06/09/19 11:28:00 EST, Height, 72, kg, 07/14/19 11:17:00 EST, Dry Weight Start Date: 07/17/19 Stop Date: 09/15/19 Status: Ordered Quantity: 30.0 Unit: tablet Repeat number: 2 morphine 15 mg oral tablet, immediate release = 15 mg, By Mouth, Every 6 hours, as needed for pain, # 12 tablet, 0 Refills, Soft Stop, 08/14/23 8:27:00 PM EST, Tablet, [facility] #[id number], Partial fill upon patient request if the prescription is for a schedule II opioid drug., 153, cm, 06/16/23 14:11:00 EST, Height, 77.7, kg, 06/16/23 14:11:00 EST, Dry Weight Start Date: 08/14/23 Stop Date: 08/17/23 Status: Ordered Quantity: 12.0 Unit: tablet Repeat number: 1 MorPHINE Inj 2 mg, Injection, IV Push Slowly, Once, STAT, 10/26/24 10:08:00 AM EDT, Stop date 10/26/24 10:44:06 AMEDT Start Date: 10/26/24 Stop Date: 10/26/24 Status: Completed Repeat number: 1 omeprazole 40 mg oral enteric coated capsule 1 capsule = 40 mg, By Mouth, Daily, # 30 capsule, 0 Refills, Maintenance, 07/15/19 11:43:00 AM EST, EC Capsule Start Date: 07/15/19 Status: Ordered Quantity: 30.0 Unit: capsule Repeat number: 1 PARoxetine 40 mg oral tablet 40 mg, 1, tablet, By Mouth, Daily, # 30 tablet, Refills 0, Maintenance, 07/15/19 11:42:00 AM EST Start Date: 07/15/19 Status: Ordered Quantity: 30.0 Unit: tablet Repeat number: 1 SIJ Belt SIJ Belt, See Instructions, # 1 each, Refills 0, Tot. Refills 0, Maintenance, DX: Sacroiliitis M46.1; Right SIJ pain M53.3, 07/12/20 11:36:00 AM EST, Supply Start Date: 07/12/20 Status: Ordered Quantity: 1.0 Unit: each Repeat number: 1 traZODone 50 mg oral tablet 50 mg, 1, tablet, By Mouth, Daily at bedtime, # 30 tablet, Refills 0, Tot. Refills 0, Maintenance, 10/26/24 12:33:00 PM EDT, Route to Pharmacy Electronically, [facility] #[id number], Partial fillupon patient request if the prescription is for a schedule II opioid drug., 153, cm, 10/26/24 8:47:00 EDT, Height, 80.4, kg, 10/26/24 8:47:00 EDT, Dry Weight Start Date: 10/26/24 Status: Ordered Quantity: 30.0 Unit: tablet Repeat number: 1 Tylenol Extra Strength 500 mg oral tablet 2 tablet = 1,000 mg, By Mouth, 3 times a day, PRN for fever, # 60 tablet, 0 Refills, Maintenance, 09/25/24 7:46:00 PM EDT, Tablet, [facility] #[id number], Partial fill upon patient request, 153, cm, 09/25/24 18:44:00 EDT, Height, 80, kg, 09/25/24 18:44:00 EDT, Dry Weight Start Date: 09/25/24 Stop Date: 10/05/24 Status: Ordered Quantity: 60.0 Unit: tablet Repeat number: 1 Ventolin HFA 108 mcg/inh inhalation aerosol with adapter 1 puffs, Inhalation, 4 times a day, PRN for wheezing, # 8 Gm, 0 Refills, Maintenance, 05/18/19 1:39:30 PM EST, Aerosol Start Date: 05/18/19 Status: Ordered Quantity: 8.0 Unit: g Repeat number: 1 VITAMIN D 2000IU SOFTGEL CAPS TK 1 C PO QD Start Date: 07/15/19 Status: Ordered Repeat number: 1 Problem List Condition Confirmation Course Effective Dates Status H ealth Status Informant Anxiety disorder Confirmed Active Asthma Confirmed Active COVID-24 07 Confirmed 02/06/23 Active Chronic GERD Confirmed Active Hypertension Confirmed Active Iron deficiency anemia Confirmed 1989 Active Right lumbar radiculopathy Confirmed Active Migraines Confirmed Active Cluneal neuropathy Confirmed Active Obese class I Confirmed Active Osteoarthritis of hip 2 Confirmed Active Chronic right sacroiliac joint pain Confirmed Active Tubular adenoma of colon Confirmed 02/16/22 Active 1Problem added by Discern Expert 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, 2008 (providers at [facility], [facility], [facility]) Vital Signs Most recent to oldest [Reference Range]: 1 2 3 Height 153 cm (10/26/24 8:47 AM) Weight 80.4 kg (10/26/24 8:47 AM) Oxygen Saturation [94-100 %] 100 % (10/26/24 1:07 PM) 99 % (10/26/24 8:47 AM) Pulse Rate [55-90 bpm] 78 bpm (10/26/24 1:07 PM) 94 bpm *H* (10/26/24 8:47 AM) Body Mass Index [18.5-24.99 kg/m2] 34.35 kg/m2 *>HHI* (10/26/24 8:47 AM) Blood Pressure [90-138/55-84 mm Hg] 156/73mm Hg *H* (10/26/24 1:07 PM) 157/98mm Hg *H* (10/26/24 8:47 AM) Respiratory Rate [16-30 br/min] 18 br/min (10/26/24 1:07 PM) 18 br/min (10/26/24 10:41 AM) 18 br/min (10/26/24 8:47 AM) Temperature [96.8-100.4 DegF] 97.5 DegF (10/26/24 1:07 PM) 97.6 DegF (10/26/24 8:47 AM) Mode of Delivery (Oxygen) Room air (10/26/24 8:47 AM) Blood pressure sites Arm, left (10/26/24 1:07 PM) Arm, left (10/26/24 8:47 AM) Temperature Route Oral (10/26/24 1:07 PM) Oral (10/26/24 8:47 AM) Dry Weight 80.4 kg (10/26/24 8:47 AM) Weight Obtained Via Patient/family state d (10/26/24 8:47 AM) Dry Weight Obtained Via Patient/family s tated (10/26/24 8:47 AM) Social History Social History Type Response Smoking Status Never smoker entered on: 02/02/18 Sex Sex Representation Female (finding) Note * El Serra NP: PERFORM, SIGN, VERIFY Event Display: Patient Education Handout Authored Date: [id number] Patient Care team information Care Team Personnel Name: Lillian Huertas RN Position: [facility] RN Member Role: Primary Care Nurse Name: Baldo Leung MD Position: [facility] Renal MD Member Role: Lifetime Consulting Physician Address: [address] [place] [address] [address] [facility] [address] Telecom: Name: Esthela Covington MD Position: [facility] Physician - Primary Care Member Role: PCP Address: [address] [place] [address] [address] [facility] [address] Telecom: Name: Yeni Nolan RN Position: S RN Member Role: Primary Care Nurse Name: Kailey Broussard RN Position: S RN Member Role: Primary Care Nurse Name: Iwona Umana RN Position: S RN Member Role: Primary Care Nurse Care Team Related Persons Name: EVIE EVANGELISTA Name: SHAHIDA MITCHELL Insurance Providers Guarantor name: [facility] [employer] [facility] Information #: 1 Payer: [employer] Member Number: [id number] Policy Number: CHIRAG Group Number: NA Health Plan Information #: 2 Payer: [employer] Member Number: [id number] Policy Number: CHIRAG Group Number: [id number]
== END 2024-10-29 12:50 | disposition home or self-care (01) ==
LOC: HO.MRI 12:49
PROVIDERS: PCP Internal Medicine; Visit Provider Anesthesiology
DX: M96.1 Postlaminectomy syndrome, not elsewhere classified (principal)
CPT/HCPCS: 72148

== ENCOUNTER → 2024-10-29 12:57 | Outpatient (BNV) | payer MEDICARE, MEDICAID, SELFPAY | PROVIDERS: PCP Internal Medicine; Visit Provider Radiology Diagnostic Radiology | DX: M96.1 Postlaminectomy syndrome, not elsewhere classified (principal); M48.061 Spinal stenosis, lumbar region without neurogenic claudication | CPT/HCPCS: 72148 ==

== ENCOUNTER 2024-11-01 06:14 | Outpatient (REF) | payer MEDICARE, MEDICAID, SELFPAY ==
--- NOTE | ~2024-11-01 | FL_ITS ---
EXAMINATION: FL GUIDANCE ONLY HISTORY: M53.3 - Sacrococcygeal disorders, not elsewhere classified COMPARISON: None available. TECHNIQUE: Fluoroscopy time: 0.1 minutes. Cumulative Dose: 1.10 mGy. DAP: 0.0149 mGym2 Images: 2. FINDINGS: Images demonstrate a needle and contrast material in the region of the right sacroiliac joint. FL/FL guidance in treatment room IMPRESSION: Fluoroscopy during procedure. Please see procedure report for additional information. Electronically signed by: Seth Sunshine MD 11/02/2024 03:51 PM EDT
--- OUTSIDE RECORDS SUMMARY | 2024-11-01 06:18 | XMS_ITS | Clinical Summary ---
Author Organization [place] [address] [facility] Address [address] [place], [place] [address] [address] Phone Care Team Providers Care Presidential Helicopter Crew Chief Name Role Phone Mary Traylor DO Primary Care Provider [phone] Allergies Active Allergy Reactions Criticality Noted Date [...] Assessment & Plan: Reviewed this is not Air Carrier Inspector in nature and recommended she follow up [...] appears to be MSK related and not joy loader related. Right hip pain 04/03/2017 Osteoarthritis of hip 04/22/2012 Overview (05/04/2024): Osteoarthritis of hip - 715.15 Encounters Date Type Department Care Team Description 08/26/2024 Telephone Internal [facility] - [facility] [address] [facility] [place] [address] Mary Traylor, New Med Request from [...] HISTORICAL HIP REPLACEMENT BREAST REDUCTION 1999 PROCEDURE: ME BREAST REDUCTION OTHER SURGICAL HISTORY 07/11/2017 PROCEDURE: ME ENDOSCOPY UPPER SMALL INTESTINE; COMMENT: Biopsy c/w [...] disease) T2DM (type 2 diabetes mellit us) ([facility] V24, [facility] V28) DX:T2DM (type 2 diabetes christina litus) ([facility]) Family History Medical History Relation [...] PM EDT Office Visit Internal Medicine - [facility] [address], [place] [phone] Ria Bernstein NP [address] [place] [address] 12/15/2024 3:00 PM EDT Office Visit Bariatric Surgery - [place] [address] [id number] Nick Morales MD [address] [address] [phone] (work) Health Maintenance Due Date Last Done [...] mmol/L LAB CHEMISTRY METHOD 05/20/2024 5:33 PM [facility] Potassium 4.1 3.5 - 5.5 mmol/L LAB CHEMISTRY METHOD 05/20/2024 5:33 PM [facility] Chloride 104 96 - 110 mmol/L LAB CHEMISTRY METHOD 05/20/2024 5:33 PM [facility] CO2 30 21 - 32 mmol/L LAB CHEMISTRY METHOD 05/20/2024 5:33 PM [facility] Anion Gap 5 3 - 11 LAB CHEMISTRY METHOD 05/20/2024 5:33 PM [facility] Glucose 90 70 - 100 mg/dL LAB CHEMISTRY METHOD 05/20/2024 5:33 PM [facility] BUN 22 5 - 25 mg/dL LAB CHEMISTRY METHOD 05/20/2024 5:33 PM [facility] Creatinine 0.94 0.50 - 1.10 mg/dL LAB CHEMISTRY METHOD 05/20/2024 5:33 PM [facility] eGFR 70 >=60 mL/min/1. 73m2 LAB CHEMISTRY METHOD 05/20/2024 5:33 PM [facility] Comment:Calculation based on the??Chronic Kidney Disease Epidemiology Collaboration (CKD-EPI) equation refit??without adjustment for race. BUN/Creatinine Ratio 23.4 LAB CHEMISTRY METHOD 05/20/2024 5:33 PM EST [facility] Calcium 9.3 8.5 - 10.5 mg/dL LAB CHEMISTRY METHOD 05/20/2024 5:33 PM EST [facility] Blood Venous blood specimen / Unknown Venipuncture / Unknown 05/20/2024 2:28 PM EST 05/20/2024 2:28 PM EST Edilberto LEBL[facility] LAB BLOOD ORDERABLES Fi nal Result [facility] [address] [place] [address], [place] [phone] * Cervical Cancer Screening: HPV (01/12/2023) [facility] Cervical Cancer Screening: HPV negative, abstracted Historical Provider HEALTH MAINTENANCE Final Result from Last 3 Months or Most Recently Relevant to Health Maintenance Insurance MEDICAID - [place] MEDICARE Care Teams Presidential Helicopter Crew Chief Relationship Specialty Start Date End Date Mary Traylor DO [address] [place], [place] [address] [address] PCP - General 02/05/23
== END 2024-11-01 06:15 | disposition home or self-care (01) ==
LOC: CF 06:14
PROVIDERS: Visit Provider Anesthesiology
DX: M96.1 Postlaminectomy syndrome, not elsewhere classified (principal); M46.1 Sacroiliitis, not elsewhere classified; M53.3 Sacrococcygeal disorders, not elsewhere classified; G89.4 Chronic pain syndrome
CPT/HCPCS: 27096; 73502; 99281; 99283; A9585; J2003; J2795; Q9967

== ENCOUNTER 2024-11-01 13:36 | Outpatient (AMB) | payer MEDICARE, MEDICAID, SELFPAY ==
[2024-11-01 13:44] VITALS: BP 142/90; PULSE 92; RESP 16; O2SAT 97
--- NOTE | 2024-11-01 13:44 | MHC.OFFVIS ---
Vital Signs 11/01/24 13:44 11/01/24 14:03 BP 142/90 H 166/98 H Blood Pressure Location Lt brachial Lt brachial Position Sitting Sitting Respiration 16 16 Pulse 92 86 Pulse Source Pulse Oximeter Pulse Oximeter Pulse Oximetry (%) 97 97 Oxygen Delivery Method Room Air Room Air Intake Visit Reasons: RIGHT DIAGNOSTIC SIJ INJECTION Synthetic Cloth Binding Cutter Required: No Allergies SILVER Inhibitors [SILVER INHIBITORS] Allergy (Severe, Verified 11/01/24 14:35) SWELLING celecoxib Allergy (Severe, Verified 11/01/24 14:35) Swelling ibuprofen [From MOTRIN] Allergy (Severe, Verified 11/01/24 14:35) SWELLING prednisone [PREDNISONE] Allergy (Severe, Verified 11/01/24 14:35) SWELLING Contrast dye Allergy (Severe, Uncoded 11/01/24 14:35) Anaphylaxis Medication List - Last Reconciled 11/01/24 by Daniella Rousseau LPN acetaminophen 650 mg (2 x 325 mg) PO Q6H PRN 30 days albuterol sulfate 90 mcg/actuation (ProAir HFA) 2 puffs inhalation QID PRN cholecalciferol (vitamin D3) 1 cap PO DAILY clonidine HCl 0.1 mg PO BEDTIME PRN ferrous sulfate 1 tab PO Q OTHER DAY fluticasone propionate 50 mcg/actuation 1 spray intranasal BEDTIME hydrochlorothiazide 1 tab PO QAM losartan 100 mg PO DAILY metoclopramide HCl 5 mg PO Q4-6H PRN 7 days metoprolol tartrate 1 tab PO DAILY omeprazole 1 cap PO DAILY onabotulinumtoxinA (Botox) 200 units subcut .Q 3 months paroxetine HCl 20 mg PO DAILY tizanidine 4 mg PO BID PRN 30 days PFSH Medical History Hypersomnia Snoring Osteoarthritis of right hip Arthritis Back pain Vitamin D deficiency Anemia Peptic ulcer GERD (gastroesophageal reflux disease) Habitual snoring Fibromyalgia Anxiety Chronic migraine without aura Asthma Hypertension Surgical History History of back surgery H/O colonoscopy Status post bilateral breast reduction Status post arthroscopy of right shoulder History of left hip replacement Social History Household Members: None Housing: Apartment Are you a primary managed care provider to a significant other at home: No Do you presently have visiting nurse or other home services: No Alcohol intake: never Patient Tobacco Use Status: Never used Tobacco Do you have a plan to hurt others: No Plan service: No Current occupational status: disabled Current occupation: right hand Physical Exam Vital Signs: Last Vital Signs Pulse 86 11/01/24 14:03 Resp 16 11/01/24 14:03 BP 166/98 H 11/01/24 14:03 Pulse Ox 97 11/01/24 14:03 Oxygen Delivery Method Room Air 11/01/24 14:03 Assessment & Plan Assessment & Plan (1) Postlaminectomy syndrome, lumbar: Code(s): M96.1 - Postlaminectomy syndrome, not elsewhere classified Category: Medical (2) Sacroiliitis: Code(s): M46.1 - Sacroiliitis, not elsewhere classified Category: Medical (3) Sacroiliac joint dysfunction of right side: Code(s): M53.3 - Sacrococcygeal disorders, not elsewhere classified Category: Medical (4) Chronic pain syndrome: Code(s): G89.4 - Chronic pain syndrome Category: Medical Plan Right diagnostic sacroiliac joint injection Informed consent was explained thoroughly to the patient.? All questions about benefits and risks for the procedure were answered. Patient came to the operating room she was positioned prone on the operating table with the pillow under her abdomen.? Time-out was performed delineating correct site and side of the procedure name and date of of the patient. Her lower back and buttocks was prepped with ChloraPrep prepped and draped with sterile towels.C-arm was brought over the operating field and sq picture of patient's pelvis was demonstrated on the screen.? For the right joint tilting C-arm contralateral to the site of the joint of the patient the most posterior portion of the joints were superimposed of the anterior portion of the joint . Skin was injected in the projection of the joint slightly medial to the location of the joint with 25 gauge 1/2 inch needle using local lidocaine 2% mixed with ropivacaine 0.5% 1 to 1 . After that 22 gauge 3 and 1/2 inch needle was driven to the right joint in tunnel vision fashion.? When needle entered the joint capsule injection of the contrast was performed demonstrating intra-articular and minimally periarticular spread of the contrast.? After that of ropivacaine o.5 % 5 mls was injected into the joint.? Upon completion of the injections the needles were removed and pressure were applied.? Sterile dressing was applied. Coding Level of Care Code Procedure Only Diagnoses Postlaminectomy syndrome, lumbar M96.1 Sacroiliitis M46.1 Sacroiliac joint dysfunction of right side M53.3 Chronic pain syndrome G89.4
[2024-11-01 14:03] VITALS: BP 166/98; PULSE 86; RESP 16; O2SAT 97
--- OUTSIDE RECORDS SUMMARY | 2024-11-01 15:42 | XMS_ITS | Clinical Summary ---
Author Organization [facility] Address [address] [place] [address] Care Team Providers Care Food And Nutrition Supervisor Name Role Phone Nilesh Riddle MD Primary Care Provider [phone] Allergies Active Allergy Reactions Criticality Noted Date [...] age to complete this topic Care Teams Food And Nutrition Supervisor Relationship Specialty Start Date End Date Nilesh Riddle MD PCP - General Internal Medicine 02/26/17
--- OUTSIDE RECORDS SUMMARY | 2024-11-01 15:42 | XMS_ITS | Clinical Summary ---
Author Organization [place] [address] Kirsty can [facility] Building Address [address] [place], [place] [address] [place] [address] Phone Care Team Providers Care Scooper Name Role Phone Mary Traylor DO Primary Care Provider [phone] Allergies Active Allergy Reactions Criticality Noted Date [...] Assessment & Plan: Reviewed this is not Lobbyist in nature and recommended she follow up [...] appears to be MSK related and not healthcare insurance sales agent related. Right hip pain 04/03/2017 Osteoarthritis of hip 04/22/2012 Overview (05/04/2024): Osteoarthritis of hip - 715.15 Encounters Date Type Department Care Team Description 08/26/2024 Telephone Internal Medicine - [place] [address] [place] [address] Mary Traylor, New Med Request [...] HISTORICAL HIP REPLACEMENT BREAST REDUCTION 1999 PROCEDURE: [place] BREAST REDUCTION OTHER SURGICAL HISTORY 07/11/2017 PROCEDURE: [place] ENDOSCOPY UPPER SMALL INTESTINE; COMMENT: Biopsy c/w [...] disease) T2DM (type 2 diabetes mellit us) ([facility] V24, [facility] V28) DX:T2DM (type 2 diabetes christina litus) ([facility]) Family History Medical History Relation [...] Care Team (Late st Contact Info) Description 12/15/2024 3:00 PM EDT Office Visit Bariatric Surgery - [place] [address] [place] [id number] Nick Morales MD [address] [place] [address] Health Maintenance Due Date Last Done Comments [...] 23.4 LAB CHEMISTRY METHOD 05/20/2024 5:33 PM [facility] Calcium 9.3 8.5 - 10.5 mg/dL LAB CHEMISTRY METHOD 05/20/2024 5:33 PM [facility] Blood Venous blood specimen / Unknown Venipuncture / Unknown 05/20/2024 2:28 PM EST 05/20/2024 2:28 PM EST us Edilberto LEBLANC LAB BLOOD ORDERABLES Fi nal Result [facility] [address] [place] [address], [place] [phone] * Cervical Cancer Screening: HPV (01/12/2023) Cervical Cancer Screening: HPV negative, abstracted Historical Provider MD HEALTH MAINTENANCE Final Result from Last 3 Months or Most Recently Relevant to Health Maintenance Insurance [place] - [place]ARE Care Teams Scooper Relationship Specialty Start Date End Date Mary Traylor DO [address] [place] [address] PCP - General 02/05/23
== END 2024-11-01 14:01 | disposition home or self-care (01) ==
LOC: HO.PMCPRC 13:36
PROVIDERS: PCP Internal Medicine; Visit Provider Anesthesiology
DX: M46.1 Sacroiliitis, not elsewhere classified (principal); M53.3 Sacrococcygeal disorders, not elsewhere classified; G89.4 Chronic pain syndrome
CPT/HCPCS: 27096

== ENCOUNTER 2024-11-01 14:09 | Emergency (ER) | payer MEDICARE, MEDICAID, SELFPAY ==
--- NOTE | ~2024-11-01 | XR_ITS ---
EXAMINATION: XR HIP, RIGHT CLINICAL INFORMATION: pain COMPARISON: 05/19/2024, 12/21/2023, 10/29/2023. TECHNIQUE: AP pelvis, and 2 views of the right hip. FINDINGS: There is a total right hip arthroplasty. Femoral, and acetabular components appear intact, well seated, in anatomic alignment. No evidence of periprosthetic lucency, fracture, or complication. No definite subsidence seen. There is a total left hip revision arthroplasty, without definite complication. There is mild to moderate heterotopic ossification present. The pelvis appears intact. The sacrum appears intact. Mild degenerative arthritis in the SI joints and lower lumbar spine. There is no discrete soft tissue abnormality. XR/XR hip RT w PEL1V IMPRESSION: Total right hip arthroplasty without complication evident. Electronically signed by: Seth Wood MD 11/01/2024 03:23 PM EDT
[2024-11-01 14:34] VITALS: BP 192/108; PULSE 86; RESP 12; TEMP 36.4; O2SAT 96; BMI 34.3
--- NOTE | 2024-11-01 14:34 | ED_ITS ---
HPI - General Adult General Chief complaint: Back Pain/Injury Stated complaint: Hip/leg pain, hip replacement 1 yr ago Related Data Home Medications ?Medication ?Instructions ?Recorded ?Confirmed albuterol sulfate 90 mcg/actuation 2 puff inhalation QID PRN 10/30/20 11/01/24 aerosol inhaler (ProAir HFA) Shortness Of Breath Or Wheezing cholecalciferol (vitamin D3) 50 1 cap PO DAILY 10/30/20 11/01/24 mcg (2,000 unit) capsule ferrous sulfate 325 mg (65 mg 1 tab PO Q OTHER DAY 10/30/20 11/01/24 iron) tablet hydrochlorothiazide 25 mg tablet 1 tab PO QAM 10/30/20 11/01/24 losartan 100 mg tablet 100 mg PO DAILY 10/30/20 11/01/24 metoprolol tartrate 50 mg tablet 1 tab PO DAILY 10/30/20 11/01/24 omeprazole 40 mg capsule,delayed 1 cap PO DAILY 10/30/20 11/01/24 release clonidine HCl 0.1 mg tablet 0.1 mg PO BEDTIME PRN Anxiety 05/14/22 11/01/24 fluticasone propionate 50 1 spray intranasal BEDTIME 05/28/22 11/01/24 mcg/actuation nasal spray,suspension paroxetine HCl 20 mg tablet 20 mg PO DAILY 09/16/23 11/01/24 onabotulinumtoxinA 200 unit 200 unit subcut .Q 3 months 10/17/24 11/01/24 solution for injection (Botox) Previous Rx's ?Medication ?Instructions ?Recorded acetaminophen 325 mg tablet 650 mg (2 x 325 mg) PO Q6H PRN 09/16/23 Pain, Mild (Pain Scale 1-3) 30 days #240 tabs metoclopramide HCl 5 mg tablet 5 mg PO Q4-6H PRN migraine 01/09/24 headache 7 days #28 tabs tizanidine 4 mg tablet 4 mg PO BID PRN muscle spasticity 01/09/24 30 days #60 tabs Allergies Allergy/AdvReac Type Severity Reaction Status Date / Time SILVER Inhibitors Allergy Severe SWELLING Verified 11/01/24 14:35 [SILVER INHIBITORS] celecoxib Allergy Severe Swelling Verified 11/01/24 14:35 ibuprofen [From MOTRIN] Allergy Severe SWELLING Verified 11/01/24 14:35 prednisone [PREDNISONE] Allergy Severe SWELLING Verified 11/01/24 14:35 Contrast dye Allergy Severe Anaphylaxis Uncoded 11/01/24 14:35 [facility] Past Medical History Medical History Hypersomnia Snoring Osteoarthritis of right hip Arthritis Back pain Vitamin D deficiency Anemia Peptic ulcer GERD (gastroesophageal reflux disease) Habitual snoring Fibromyalgia Anxiety Chronic migraine without aura Asthma Hypertension Surgical History History of back surgery H/O colonoscopy Status post bilateral breast reduction Status post arthroscopy of right shoulder History of left hip replacement Social History Social History Household Members: None Housing: Apartment Are you a primary vision care associate to a significant other at home: No Do you presently have visiting nurse or other home services: No Alcohol intake: never Patient Tobacco Use Status: Never used Tobacco service: No Current occupational status: disabled Current occupation: right hand Physical Exam ED Vital Signs: BMI result Body Mass Index 34.3 Course Course Course Narrative: RME, this is a rapid medical exam performed by Stanford Thompson please refer to primary provider for complete H&P- 59-year-old female presents for evaluation of right hip pain. She was in pain management for chronic hip pain. She had a hip replacement a little over a year ago. Plan for x-ray to evaluate for malalignment. Discharge Plan Discharge Clinical Impression: Acute pain of right hip Patient Disposition: Left W/O Completing Treatment Prescriptions: No Action metoclopramide HCl 5 mg tablet 5 mg PO Q4-6H PRN (Reason: migraine headache) 7 Days Qty: 28 0RF tizanidine 4 mg tablet 4 mg PO BID PRN (Reason: muscle spasticity) 30 Days Qty: 60 3RF omeprazole 40 mg capsule,delayed release(DR/EC) 1 cap PO DAILY ferrous sulfate 325 mg (65 mg iron) tablet 1 tab PO Q OTHER DAY metoprolol tartrate 50 mg tablet 1 tab PO DAILY hydrochlorothiazide 25 mg tablet 1 tab PO QAM albuterol sulfate [ProAir HFA] 90 mcg/actuation HFA aerosol inhaler 2 puff inhalation QID PRN (Reason: Shortness Of Breath Or Wheezing) losartan 100 mg tablet 100 mg PO DAILY cholecalciferol (vitamin D3) 50 mcg (2,000 unit) capsule 1 cap PO DAILY paroxetine HCl 20 mg tablet 20 mg PO DAILY acetaminophen 325 mg Tablet 650 mg PO Q6H PRN (Reason: Pain, Mild (Pain Scale 1-3)) 30 Days Qty: 240 0RF clonidine HCl 0.1 mg tablet 0.1 mg PO BEDTIME PRN (Reason: Anxiety) fluticasone propionate 50 mcg/actuation spray,suspension 1 spray intranasal BEDTIME Botox 200 unit recon soln 200 unit subcut .Q 3 months Discharge Date/Time: 11/01/24 16:44
--- OUTSIDE RECORDS SUMMARY | 2024-11-01 18:38 | XMS_ITS | Clinical Summary ---
Author Organization [place] [address] Kirsty can [facility] Building Address [address] [place], [place] [address]maryann [place] [address] Phone Care Team Providers Care Iron Miner Blasting Name Role Phone Mary Traylor DO Primary Care Provider [phone] Allergies Active Allergy Reactions Criticality Noted Date [...] Assessment & Plan: Reviewed this is not Clinical Data Abstractor in nature and recommended she follow up [...] appears to be MSK related and not iron miner blasting related. Right hip pain 04/03/2017 Osteoarthritis of hip 04/22/2012 Overview (05/04/2024): Osteoarthritis of hip - 715.15 Encounters Date Type Department Care Team Description 08/26/2024 Telephone Internal Medicine - [place] [address] [place] [address] Mary Traylor, New Med Request from [...] HISTORICAL HIP REPLACEMENT BREAST REDUCTION 1999 PROCEDURE: [place] BREAST REDUCTION OTHER SURGICAL HISTORY 07/11/2017 PROCEDURE: [place] ENDOSCOPY UPPER SMALL INTESTINE; COMMENT: Biopsy c/w [...] disease) T2DM (type 2 diabetes mellit us) ([facility] V24, [facility] V28) DX:T2DM (type 2 diabetes christina litus) ([facility] [...] PM EDT Office Visit Bariatric Surgery - [place] [address] [place] [id number] Nick Morales MD [address] [place] [address] Health Maintenance Due Date Last Done Comments [...] mmol/L LAB CHEMISTRY METHOD 05/20/2024 5:33 PM [facility] Potassium 4.1 3.5 - 5.5 mmol/L LAB CHEMISTRY METHOD 05/20/2024 5:33 PM [facility] Chloride 104 96 - 110 mmol/L LAB CHEMISTRY METHOD 05/20/2024 5:33 PM [facility] CO2 30 21 - 32 mmol/L LAB CHEMISTRY METHOD 05/20/2024 5:33 PM [facility] Anion Gap 5 3 - 11 LAB CHEMISTRY METHOD 05/20/2024 5:33 PM [facility] Glucose 90 70 - 100 mg/dL LAB CHEMISTRY METHOD 05/20/2024 5:33 PM [facility] BUN 22 5 - 25 mg/dL LAB CHEMISTRY METHOD 05/20/2024 5:33 PM [facility] Creatinine 0.94 0.50 - 1.10 mg/dL LAB CHEMISTRY METHOD 05/20/2024 5:33 PM [facility] eGFR 70 >=60 mL/min/1. 73m2 LAB CHEMISTRY METHOD 05/20/2024 5:33 PM [facility] Comment:Calculation based on the??Chronic Kidney Disease Epidemiology Collaboration (CKD-EPI) equation refit??without adjustment for race. BUN/Creatinine Ratio 23.4 LAB CHEMISTRY METHOD 05/20/2024 5:33 PM [facility] Calcium 9.3 8.5 - 10.5 mg/dL LAB CHEMISTRY METHOD 05/20/2024 5:33 PM [facility] Blood Venous blood specimen / Unknown Venipuncture / Unknown 05/20/2024 2:28 PM EST 05/20/2024 2:28 PM EST us Edilberto LEBLANC LAB BLOOD ORDERABLES Fi nal Result [facility] H[facility] LAB [address] [place] [address], [place] [phone] * Cervical Cancer Screening: HPV (01/12/2023) Cervical Cancer Screening: HPV negative, abstracted Historical Provider MD HEALTH MAINTENANCE Final Result from Last 3 Months or Most Recently Relevant to Health Maintenance Insurance [place] Care Teams Iron Miner Blasting Relationship Specialty Start Date End Date Mary Traylor DO [address] [place] [address] PCP - General 02/05/23
--- OUTSIDE RECORDS SUMMARY | 2024-11-01 18:38 | XMS_ITS | Clinical Summary ---
Author Organization [facility] Address [address] [place] [address] Care Team Providers Care Hands Assembler Name Role Phone Nilesh Riddle MD Primary Care Provider [phone] Allergies Active Allergy Reactions Criticality Noted Date [...] age to complete this topic Care Teams Hands Assembler Relationship Specialty Start Date End Date Nilesh Riddle MD PCP - General Internal Medicine 02/26/17
== END 2024-11-01 16:44 | disposition left against medical advice (07) ==
PROVIDERS: Emergency Provider Emergency Medicine; PCP Internal Medicine
DX: M25.551 Pain in right hip (principal); Z53.21 Procedure and treatment not carried out due to patient leaving prior to being seen by health care provider
CPT/HCPCS: 73502; 99281

== ENCOUNTER → 2024-11-01 14:34 | Outpatient (BNV) | payer MEDICARE, MEDICAID, SELFPAY | PROVIDERS: PCP Internal Medicine; Visit Provider Radiology Diagnostic Radiology | DX: M25.551 Pain in right hip (principal); Z96.643 Presence of artificial hip joint, bilateral | CPT/HCPCS: 73502 ==

== ENCOUNTER 2024-11-10 11:23 | Outpatient (AMB) | payer MEDICARE, MEDICAID, SELFPAY ==
--- NOTE | 2024-11-10 11:25 | MHC.OFFVIS ---
Vital Signs 11/10/24 11:26 Height 5 ft Weight 175 lb BMI 34.2 BP 142/78 H Blood Pressure Location Lt brachial Position Sitting Respiration 16 Pulse 92 Pulse Source Pulse Oximeter Pulse Oximetry (%) 97 Oxygen Delivery Method Room Air Intake Visit Reasons: RIGHT DIAGNOSTIC SIJ INJECTION Inspector Receiving Required: No Allergies SILVER Inhibitors [SILVER INHIBITORS] Allergy (Severe, Verified 11/10/24 11:27) SWELLING celecoxib Allergy (Severe, Verified 11/10/24 11:27) Swelling ibuprofen [From MOTRIN] Allergy (Severe, Verified 11/10/24 11:27) SWELLING prednisone [PREDNISONE] Allergy (Severe, Verified 11/10/24 11:27) SWELLING Contrast dye Allergy (Severe, Uncoded 11/10/24 11:27) Anaphylaxis Medication List - Last Reconciled 11/10/24 by Daneilla Rousseau LPN acetaminophen 650 mg (2 x 325 mg) PO Q6H PRN 30 days albuterol sulfate 90 mcg/actuation (ProAir HFA) 2 puffs inhalation QID PRN cholecalciferol (vitamin D3) 1 cap PO DAILY clonidine HCl 0.1 mg PO BEDTIME PRN ferrous sulfate 1 tab PO Q OTHER DAY fluticasone propionate 50 mcg/actuation 1 spray intranasal BEDTIME hydrochlorothiazide 1 tab PO QAM losartan 100 mg PO DAILY metoclopramide HCl 5 mg PO Q4-6H PRN 7 days metoprolol tartrate 1 tab PO DAILY omeprazole 1 cap PO DAILY onabotulinumtoxinA (Botox) 200 units subcut .Q 3 months paroxetine HCl 20 mg PO DAILY tizanidine 4 mg PO BID PRN 30 days HPI Comments Details: Yue is Back in my office after diagnostic sacroiliac joint injection. Patient reported no pain improvement after the injection. She did not complete her pain diary but reports that immediately after the procedure her pain was ranging from 8/10 to 7/10 without significant improvement. Therefore her condition is not sacroiliitis. She went for the MRI of the lumbar spine and MRI demonstrated several levels of the foraminal stenosis. It also demonstrates significant spondylosis. It also demonstrated a cystic formation in the left ovary. It is suggest evaluation under the ultrasound. I will refer this patient to the OBGYN. Meanwhile I will prescribe her cyclobenzaprine to help her pain and to help her rest at night. I will schedule this patient for diagnostic medial branch block L3, L4, dorsal ramus L5. If this procedure will not help the patient I would not be eager to follow on the MRI reported foraminal stenosis with steroid injections up until her OBGYN appointment will not clear out situation with her left ovary. Prior: complains on pain in the lower back on the right side with the radiation down to the right lower extremity on the lateral and posterior surface of the right hip to the level of the knee but not below that no level. She had the last year extensive physical therapy which did not help her pain. She also had extensive chiropractic manipulations which helps her pain minimally and for the short period of time. She also had acupuncture which helps her pain minimally and further short period of time. She had some sort of a steroid injections in [facility] pain management. She had muscle relaxants, NSAIDs, and Tylenol to help her pain. She denies any help from those medications. She never had diagnostic SI joint injections. She also has a history of L4-5 Surgery performed in year 1999. So it might be also postlaminectomy syndrome. She never since 1999 had MRI of the lumbar spine. She reports that sometimes she feel the pain shooting down the leg all the way down to her pinky toe on the right. That could be radiculopathic pain. [facility] Medical History Hypersomnia Snoring Osteoarthritis of right hip Arthritis Back pain Vitamin D deficiency Anemia Peptic ulcer GERD (gastroesophageal reflux disease) Habitual snoring Fibromyalgia Anxiety Chronic migraine without aura Asthma Hypertension Surgical History History of back surgery H/O colonoscopy Status post bilateral breast reduction Status post arthroscopy of right shoulder History of left hip replacement Social History Household Members: None Housing: Apartment Are you a primary career services officer to a significant other at home: No Do you presently have visiting nurse or other home services: No Alcohol intake: never Patient Tobacco Use Status: Never used Tobacco service: No Current occupational status: disabled Current occupation: right hand Review of Systems Const All systems reviewed & are unremarkable except as noted in HPI and below ENT Reports Normal hearing present Neuro Reports Normal hearing present, Denies Abnormal speech present, Denies confusion and Denies Sensory deficit (Neuro) Psych Denies confusion Physical Exam Vital Signs: Last Vital Signs Pulse 92 11/10/24 11:26 Resp 16 11/10/24 11:26 BP 142/78 H 11/10/24 11:26 Pulse Ox 97 11/10/24 11:26 Oxygen Delivery Method Room Air 11/10/24 11:26 BMI result Body Mass Index 34.2 Const General: no acute distress; No confusion Orientation/consciousness: patient oriented x3 and No confusion Eyes General: appearance normal, both eyes and all related structures Pupils: Equal, round and reactive pupils present EOM: EOMs intact bilaterally Neck Neck: Yes full ROM Chest Chest palpation & inspection: normal inspection of the chest Resp Effort & Inspection: normal respiratory effort, able to speak in complete sentences, normal respiratory pattern, no audible wheezes and no cough Cardio Jugular venous distension: no JVD GI Inspection: Yes normal to inspection Back/Spine/Pelvis Other: Tenderness on palpation in paraspinal spinal region lumbar spine. Tenderness on palpation in projection of the right sacroiliac joint. Flexing forward and flexing backwards aggravate her pain flexing forward aggravate her pain more than flexing backwards. SLR is positive on the right and negative on the left. Flexion of the right foot is aggravating her pain even more at maximal SLR. Roberto Carlos test is positive on the right. Pelvic compression and pelvic distraction tests are positive on the right. Thigh thrust test is positive on the right. Neuro General: patient oriented x3, gait normal and No confusion Cranial nerves: Yes CN's II-XII intact bilaterally, Yes Equal, round and reactive pupils present, Yes Normal hearing present and Yes Ability to bilaterally elevate shoulders present Speech: No Abnormal speech present Gait exam (Neuro): Normal gait present Motor exam (neuro): 5/5 motor strength present throughout Sensory Exam: No Sensory deficit (Neuro) Extrem General: No pedal edema Psych Speech and movement: Normal speech and movement present Affect: normal affect Attitude: cooperative Thought process: Normal thought process present Thought content: Normal thought content present Insight: Good insight present (Psych) Judgement: Good judgement present (Psych) Results Reviewed Results Reviewed: MR lumbar spine without gadolinium Comparison: None Findings: No plain films are available for comparison. Thus, for numbering purposes, 5 lumbar type vertebral bodies will be presumed. This should be confirmed with plain films prior to any lumbar spinal intervention. Loss of normal lumbar lordosis. 2 mm of retrolisthesis of L1 on L2. No acute fracture or pathologic bone lesion. Mild reactive signal throughout the endplates of the lumbar and lower thoracic spine. Cauda equina and conus medullaris within normal limits. Paraspinous musculature intact. 20 mm low T2 intensity focus within the left adnexa, which may represent abnormality within the left ovary or a uterine fibroid. L1-L2: Moderate disc desiccation. Mild diffuse disc bulge. Mild facet and ligamentum flavum hypertrophy. Mild epidural lipomatosis. Mild canal stenosis. Mild bilateral foraminal stenosis. L2-L3: Moderate disc desiccation. Mild diffuse disc bulge. Mild facet and ligamentum flavum hypertrophy. Mild epidural lipomatosis. Mild canal stenosis. Mild bilateral foraminal stenosis. L3-L4: Moderate disc desiccation. Mild diffuse disc bulge. Mild facet and ligamentum flavum hypertrophy. Mild epidural lipomatosis. Mild canal stenosis. Moderate bilateral foraminal stenosis. L4-L5: Mild disc desiccation and diffuse disc bulge. Mild facet and ligamentum flavum hypertrophy. Mild epidural lipomatosis. Mild canal stenosis. Moderate bilateral foraminal stenosis. L5-S1: Mild bilateral facet hypertrophy. Moderate epidural lipomatosis. Mild canal stenosis. Moderate bilateral foraminal stenosis. IMPRESSION: 1. Multilevel degenerative disc and facet disease, as well as ligamentum flavum hypertrophy. 2. Mild multilevel canal stenoses. 3. Multilevel foraminal stenoses, worst at L3-L4, L4-L5, and L5-S1 where there are moderate foraminal stenoses. 4. Left ovarian abnormality versus uterine fibroid. Further assessment with ultrasound is recommended. Assessment & Plan Assessment & Plan (1) Ovarian cyst: Code(s): N83.209 - Unspecified ovarian cyst, unspecified side Category: Medical (2) Chronic pain syndrome: Code(s): G89.4 - Chronic pain syndrome Category: Medical (3) Postlaminectomy syndrome, lumbar: Code(s): M96.1 - Postlaminectomy syndrome, not elsewhere classified Category: Medical (4) Spondylosis of lumbar region without myelopathy or radiculopathy: Code(s): M47.816 - Spondylosis without myelopathy or radiculopathy, lumbar region Category: Medical Plan referral to OBGYN was made due to incidental finding of the left ovarian cyst. To help it patient has to sleep at night I will start her on cyclobenzaprine 10 mg 2 q.h.s.. I will schedule her for diagnostic medial branch block L3, L4, dorsal ramus L5. If this injection will not help the patient I will not be eager to perform steroid injections in transforaminal as dictated above in the MRI until patient will complete her evaluation of the left ovarian cyst. Orders: Referrals SENIOR MOBILE WEB DEVELOPER Referral N83.209 - Unspecified ovarian cyst, unspecified side Medications: New cyclobenzaprine 10 mg PO BEDTIME 30 days 30 tabs 6RF Discontinued tizanidine Discontinued Reason: Doctor's Order 4 mg PO BID 30 days PRN 60 tabs 3RF muscle spasticity Coding Level of Care Code Est Pt Level 3 (33412) Diagnoses Ovarian cyst N83.209 Chronic pain syndrome G89.4 Postlaminectomy syndrome, lumbar M96.1 Spondylosis of lumbar region without myelopathy or radiculopathy M47.816
[2024-11-10 11:26] VITALS: BP 142/78; PULSE 92; RESP 16; O2SAT 97; BMI 34.2
--- OUTSIDE RECORDS SUMMARY | 2024-11-10 12:54 | XMS_ITS | Clinical Summary ---
Author Organization [facility] Address [address] [place] [address] Care Team Providers Care Helmet Binder Name Role Phone Nilesh Riddle MD Primary Care Provider [phone] Allergies Active Allergy Reactions Criticality Noted Date [...] age to complete this topic Care Teams Helmet Binder Relationship Specialty Start Date End Date Nilesh Riddle MD PCP - General Internal Medicine 02/26/17
--- OUTSIDE RECORDS SUMMARY | 2024-11-10 12:54 | XMS_ITS | Clinical Summary ---
Author Organization [place] [address] Kirsty can [facility] Building Address [facility] [place] [address] Phone Care Team Providers Care Army Officer Name Role Phone Mary Traylor DO Primary Care Provider [phone] Allergies Active Allergy Reactions Criticality Noted Date [...] Assessment & Plan: Reviewed this is not Records Management Director in nature and recommended she follow up [...] appears to be MSK related and not performance test architect related. Right hip pain 04/03/2017 Osteoarthritis of hip 04/22/2012 Overview (05/04/2024): Osteoarthritis of hip - 715.15 Encounters Date Type Department Care Team Description 08/26/2024 Telephone Internal Medicine - [place] [address] [place] [address] Mary Traylor, New Med Request from [...] disease) T2DM (type 2 diabetes mellit us) ([facility] V24, [facility] V28) DX:T2DM (type 2 diabetes christina litus) ([facility]) Family History Medical History Relation Name Comments [...] PM EDT Office Visit Bariatric Surgery - [place] [address] [place] [id number] Nick Morales MD [address] [place] [address] Health Maintenance Due Date Last Done Comments [...] Procedure Name Priority Date/Time Associated Diagnosis Comments EXTERNAL XRAY REPORT 11/02/2024 EXTERNAL MRI REPORT 11/02/2024 BASIC METABOLIC PANEL Routine 05/20/2024 2:28 PM EST Primary hypertension HM HPV Routine 01/12/2023 from Last 3 Months or Most Recently Relevant to Health Maintenance Results * External Xray Report (11/02/2024) Anatomical Region Laterality Modality Radiographic Sarah ging us Provider [facility] XR PROCEDURES Final Result * External MRI Report (11/02/2024) Anatomical Region Laterality Modality Magnetic Resonan ce us Provider [facility] MRI PROCEDURES Final Result * Basic metabolic panel (05/20/2024 2:28 PM EST) Sodium 139 133 - 145 mmol/L LAB CHEMISTRY METHOD 05/20/2024 5:33 PM [facility] Potassium 4.1 3.5 - 5.5 mmol/L LAB CHEMISTRY METHOD 05/20/2024 5:33 PM [facility] Chloride 104 96 - 110 mmol/L LAB CHEMISTRY METHOD 05/20/2024 5:33 PM [facility] CO2 30 21 - 32 mmol/L LAB CHEMISTRY METHOD 05/20/2024 5:33 PM [facility] Anion Gap 5 3 - 11 LAB CHEMISTRY METHOD 05/20/2024 5:33 PM [facility] Glucose 90 70 - 100 mg/dL LAB CHEMISTRY METHOD 05/20/2024 5:33 PM [facility] BUN 22 5 - 25 mg/dL LAB CHEMISTRY METHOD 05/20/2024 5:33 PM [facility] Creatinine 0.94 0.50 - 1.10 mg/dL LAB CHEMISTRY METHOD 05/20/2024 5:33 PM [facility] eGFR 70 >=60 mL/min/1. 73m2 LAB CHEMISTRY METHOD 05/20/2024 5:33 PM EST [facility] Comment:Calculation based on the??Chronic Kidney Disease Epidemiology Collaboration (CKD-EPI) equation refit??without adjustment for race. BUN/Creatinine Ratio 23.4 LAB CHEMISTRY METHOD 05/20/2024 5:33 PM EST [facility] Calcium 9.3 8.5 - 10.5 mg/dL LAB CHEMISTRY METHOD 05/20/2024 5:33 PM EST [facility] Blood Venous blood specimen / Unknown Venipuncture / Unknown 05/20/2024 2:28 PM EST 05/20/2024 2:28 PM EST Edilberto LEBLANC LAB BLOOD ORDERABLES Fi nal Result [facility] [address] [place] [address], * Cervical Cancer Screening: HPV (01/12/2023) Pathologist [facility] Cervical Cancer Screening: HPV negative, abstracted Historical Provider HEALTH MAINTENANCE Final Result from Last 3 Months or Most Recently Relevant to Health Maintenance Insurance [place] - [place]ARE Care Teams Army Officer Relationship Specialty Start Date End Date Mary Traylor DO [address] [place] [address] PCP - General 02/05/23
== END 2024-11-10 11:47 | disposition home or self-care (01) ==
LOC: HO.PMC 11:24
PROVIDERS: PCP Internal Medicine; Visit Provider Anesthesiology
DX: N83.209 Unspecified ovarian cyst, unspecified side (principal); G89.4 Chronic pain syndrome; M96.1 Postlaminectomy syndrome, not elsewhere classified; M47.816 Spondylosis without myelopathy or radiculopathy, lumbar region
CPT/HCPCS: 99213

== ENCOUNTER → 2024-11-10 11:23 | Outpatient (BNVA) | payer MEDICARE, MEDICAID, SELFPAY | PROVIDERS: PCP Internal Medicine; Visit Provider Anesthesiology | DX: N83.209 Unspecified ovarian cyst, unspecified side (principal); M96.1 Postlaminectomy syndrome, not elsewhere classified; M47.816 Spondylosis without myelopathy or radiculopathy, lumbar region; G89.4 Chronic pain syndrome | CPT/HCPCS: 99212 ==

== ENCOUNTER → 2024-12-09 13:12 | Outpatient (BNVA) | payer MEDICARE, MEDICAID, SELFPAY | PROVIDERS: PCP Internal Medicine; Visit Provider Psychiatry & Neurology Neurology | DX: Z13.89 Encounter for screening for other disorder (principal) ==

== ENCOUNTER 2024-12-27 06:28 | Outpatient (REF) | payer MEDICARE, MEDICAID, SELFPAY ==
--- OUTSIDE RECORDS SUMMARY | 2024-12-27 06:30 | XMS_ITS | Clinical Summary ---
Author Organization [facility] Address [address] [place] [address] Care Team Providers Care Artificial Teeth Inspector Name Role Phone Nilesh Riddle MD Primary Care Provider [phone] Allergies Active Allergy Reactions Criticality Noted Date [...] (1 o f 2) 2013 Influenza Vaccine (Season Ended) 2025 05/13/2008 RSV Adult > 60+ Yrs or [...] age to complete this topic Care Teams Artificial Teeth Inspector Relationship Specialty Start Date End Date Nilesh Riddle MD PCP - General Internal Medicine 02/26/17
== END 2024-12-27 06:29 | disposition home or self-care (01) ==
LOC: CF 06:28
PROVIDERS: Visit Provider Anesthesiology
DX: Z13.89 Encounter for screening for other disorder (principal)

== ENCOUNTER 2025-01-03 10:29 | Outpatient (AMB) | payer MEDICARE, MEDICAID, SELFPAY ==
--- NOTE | 2025-01-03 10:33 | MHC.OFFVIS ---
Vital Signs 01/03/25 10:35 Height 5 ft Weight 181 lb BMI 35.3 Intake Visit Reasons: Botox Intake Note: Patient presents for botox injection practice supplied Allergies SILVER Inhibitors (SILVER INHIBITORS) Allergy (Severe, Verified 01/03/25 10:36) SWELLING celecoxib Allergy (Severe, Verified 01/03/25 10:36) Swelling ibuprofen (From MOTRIN) Allergy (Severe, Verified 01/03/25 10:36) SWELLING prednisone (PREDNISONE) Allergy (Severe, Verified 01/03/25 10:36) SWELLING Contrast dye Allergy (Severe, Uncoded 01/03/25 10:36) Anaphylaxis Medication List - Last Reconciled 01/03/25 by Martha Torres MD acetaminophen 650 mg (2 x 325 mg) PO Q6H PRN 30 days albuterol sulfate 90 mcg/actuation (ProAir HFA) 2 puffs inhalation QID PRN cholecalciferol (vitamin D3) 1 cap PO DAILY clonidine HCl 0.1 mg PO BEDTIME PRN cyclobenzaprine 10 mg PO BEDTIME 30 days ferrous sulfate 1 tab PO Q OTHER DAY fluticasone propionate 50 mcg/actuation 1 spray intranasal BEDTIME hydrochlorothiazide 1 tab PO QAM losartan 100 mg PO DAILY metoclopramide HCl 5 mg PO Q4-6H PRN 7 days metoprolol tartrate 1 tab PO DAILY omeprazole 1 cap PO DAILY onabotulinumtoxinA (Botox) 200 units subcut .Q 3 months paroxetine HCl 20 mg PO DAILY HPI Comments Details: ? 59y/o female comes for treatment of migraines with botox. How many migraine days prior to botox-30 How long do the migraines last-2 days Intensity of migraine-decreased ER visits related to migraine-yes Effectiveness of botox from last two treatment(s) How many migraine days since receiving treatment:4-5 Change? in intensity of migraine?decreased Change in frequency of migraine?decreased Change in use of acute medication for migraine?decreased Change in quality of life?better ER visits related to migraine?none Have at least three months elapsed since last treatment (Last botox date - frequency of injections) 3 mths ??? Most frequent reported adverse reactions following injection of botox for chronic migraine include neck pain (9%), headache(5%), eyelid ptosis(4%), migraine(4%), muscular weakness(4%), musculuskeletal stiffness(4%), bronchitis(3%), injection site pain (3%), musculoskeletal pain(3%), myalgia(3%), facial paresis(2%), HTN(2%) and muscle spasms(2%) were discussed in detail. ??? Botulinum toxin typeA 200units Lot no [id number] expiration April 2027 was diluted with 4 cc of normal saline . ??? Muscles injected- ??? Frontalis 4 sites ??? Procerus 1 site ??? Outsole Cutter Machine- 2 sites ??? Temporalis- 8 sites ??? Occipitalis- 6 sites ??? Cervical paraspinals- 4 sites ??? Trapezius- 6 sites- 10 units each ??? 5 units each in 31 site ??? Total use- 185units ??? Discarded-15units [facility] Medical History Hypersomnia Snoring Osteoarthritis of right hip Arthritis Back pain Vitamin D deficiency Anemia Peptic ulcer GERD (gastroesophageal reflux disease) Habitual snoring Fibromyalgia Anxiety Chronic migraine without aura Asthma Hypertension Surgical History History of back surgery H/O colonoscopy Status post bilateral breast reduction Status post arthroscopy of right shoulder History of left hip replacement Social History Household Members: None Housing: Apartment Are you a primary transitional care manager to a significant other at home: No Do you presently have visiting nurse or other home services: No Alcohol intake: never Patient Tobacco Use Status: Never used Tobacco service: No Current occupational status: disabled Current occupation: right hand Physical Exam Vital Signs: BMI result Body Mass Index 35.3 Const General: cooperative, healthy appearing and no acute distress Orientation/consciousness: patient oriented x3 HEENT Other: tenderness in right parietal and temporal region , pain when she opens her mouth Eyes Pupils: Equal, round and reactive pupils present Neck Other: tenderness in right neck, limited lateral neck movement due to pain. Resp Effort & Inspection: normal respiratory effort and able to speak in complete sentences Cardio Rate: regular rate Peripheral pulses: Peripheral pulses 2+ throughout GI Palpation (GI): Soft to palpation Skin Lesions: no lesions Rashes: no rashes Neuro General: patient oriented x3, tone normal and moves all extremities Cranial nerves: Yes Equal, round and reactive pupils present, Yes Nystagmus not present and Yes Normal facial strength present Gait exam (Neuro): Normal gait present Motor exam (neuro): 5/5 motor strength present throughout and Normal motor muscle tone present throughout Office Procedures Botulinum toxin Injection 57670 - Migraine Procedure code (CPT) selection complete Office Meds onabotulinumtoxinA 200 unit solution for injection Performing Provider: Martha Torres MD Performing Location: [facility] Administered by: Martha Torres MD on 01/03/25 10:58 Dose Route Admin Location Dispensed Lot Number Expiration Date [facility] Bed And Breakfast Operator 185 unit IM 200 units [id number] ALLERGAN/BOTOX Total Dispensed Waste 200 units 7.5 % Comments: see HPI Assessment & Plan Assessment & Plan (1) Migraine with aura, intractable, without status migrainosus: Code(s): G43.119 - Migraine with aura, intractable, without status migrainosus Category: Medical (2) Chronic migraine with aura: Code(s): G43.109 - Migraine with aura, not intractable, without status migrainosus Category: Medical Qualifiers: Status migrainosus presence: without status migrainosus Intractability: intractable Qualified Code(s): G43.E19 - Chronic migraine with aura, intractable, without status migrainosus Plan patient tolerated the procedure well she will call with any side effects Orders: Orders AMB Botulinum toxin Injection Today G43.E19 - Chronic migraine with aura, intractable, without status migrainosus Coding Level of Care Code Est Pt Level 1 (50140) Diagnoses Migraine with aura, intractable, without status migrainosus G43.119 Intractable chronic migraine with aura and without status migrainosus G43.E19 Status migrainosus presence: without status migrainosus Intractability: intractable CPT Codes Botox Injection - Botox 3: 74321 - Migraine ([id number])
[2025-01-03 10:35] VITALS: BMI 35.3
--- OUTSIDE RECORDS SUMMARY | 2025-01-03 11:40 | XMS_ITS | Clinical Summary ---
Author Organization [place] [address] [facility] Building Address [address] [place], [place] [address] [address] Phone Care Team Providers Care Teaseler Name Role Phone Mary Traylor DO Primary Care Provider [phone] Allergies Active Allergy Reactions Criticality Noted Date Comments Marvin Inhibitors Swelling,Unknown 10/03/2008 Ibuprofen Unknown,Swelling 10/03/2008 Other Reaction(s): MARVIN inhibitor Iodinated Contrast Media 01/23/2020 Prednisone Swelling 07/29/2016 Medications ondansetron (ZOFRAN) 4 mg tablet Take 1 tablet (4 mg total) by mouth. 4 Active ferrous sulfate 325 mg (65 mg elemental iron) tablet Take 1 tablet (325 mg total) by mouth every other day. 7 Active fluticasone propionate (FLONASE) 50 mcg/actuation nasal spray 7 Active albuterol HFA (PROAIR HFA ; PROVENTIL HFA ; VENTOLIN HFA) 90 mcg/actuation inhaler Inhale 2 puffs by mouth every 4 (four) hours if needed for wheezing. 20 g 1 4 Active budesonide (Pulmicort Flexhaler) 180 mcg/actuation inhaler Inhale 1 puff by mouth 2 (two) times a day. Rinse mouth with water after use to reduce aftertaste and incidence of candidiasis. Do not swallow. 3 each 1 4 Active PARoxetine (PAXIL) 20 mg tablet TAKE 1 TABLET BY MOUTH DAILY 90 tablet 1 5 Active metoprolol succinate (TOPROL-XL) 50 mg 24 hr tablet TAKE ONE TABLET BY MOUTH DAILY 90 tablet 1 5 Active amitriptyline (ELAVIL) 10 mg tablet TAKE 1 TABLET(10 MG) BY MOUTH AT BEDTIME 90 tablet 5 Active amLODIPine (NORVASC) 5 mg tablet Take 1 tablet (5 mg total) by mouth 1 (one) time each day. 5 Active cholecalciferol (VITAMIN D-3) 50 mcg (2,000 unit) capsule Take 1 capsule (2,000 Units total) by mouth 1 (one) time each day. 5 Active omeprazole (PriLOSEC) [address] capsuleIndicatio ns:Chronic GERD Take 1 capsule (40 mg total) by mouth 1 (one) time each day. 90 each 1 5 025 Active cloNIDine (CATAPRES) 0.1 mg tabletIndication s:Anxiety Take 1 tablet (0.1 mg total) by mouth 2 (two) times a day. 180 each 1 5 025 Active losartan (COZAAR) 100 mg tabletIndication s:Primary hypertension Take 1 tablet (100 mg total) by mouth 1 (one) time each day. 90 each 1 5 025 Active amLODIPine (NORVASC) 5 mg tabletIndication s:Primary hypertension Take 1 tablet (5 mg total) by mouth 1 (one) time each day. 90 each 1 5 025 Active hydroCHLOROthiaz jam (HYDRODIURIL) 25 mg tabletIndication s:Primary hypertension Take 1 tablet (25 mg total) by mouth 1 (one) time each day. 90 each 1 5 025 Active baclofen (LIORESAL) 10 mg tabletIndication s:Chronic bilateral low back pain with sciatica, sciatica laterality unspecified Take 1 tablet (10 mg total) by mouth 2 (two) times a day if needed for muscle spasms for up to 10 days. 20 each 5 025 Active lidocaine (LIDODERM) 5 % patch Place 1 patch on the skin. 4 025 Discontin ued(Reord er) hydroCHLOROthiaz jam (HYDRODIURIL) 25 mg tablet TAKE 1 TABLET BY MOUTH DAILY 90 tablet 5 025 Discontin ued(Reord er) losartan (COZAAR) 100 mg tablet TAKE 1 TABLET BY MOUTH DAILY 30 tablet 5 025 Discontin ued(Reord er) amLODIPine (NORVASC) 5 mg tablet TAKE 1 TABLET BY MOUTH EVERY DAY 30 tablet 5 025 Discontin ued(Reord er) cloNIDine (CATAPRES) 0.1 mg tablet Take 1 tablet (0.1 mg total) by mouth 2 (two) times a day. 60 tablet 5 025 Discontin ued(Reord er) omeprazole (PriLOSEC) [address] capsule TAKE 1 CAPSULE BY MOUTH DAILY 90 capsule 5 025 Discontin ued(Reord er) omeprazole (PriLOSEC) [address] capsule TK 1 C PO QD 7 Discontin ued(Reord er) tirzepatide, weight loss, (Zepbound) 2.5 mg/0.5 mL injectionIndicat ions:Class 2 severe obesity due to excess calories with serious comorbidity and body mass index (BMI) of 35.0 to 35.9 in adult ([facility] V24, [facility] V28) Inject 0.5 mL (2.5 mg total) under the skin every 7 (seven) days for 4 doses. 2 mL 5 025 Discontin ued(Cost of medicatio n) tiZANidine (ZANAFLEX) 4 mg capsule Take 1 capsule (4 mg total) by mouth if needed. 5 025 Discontin ued(Thera py completed ) lidocaine (LIDODERM) 5 % patchIndications :Chronic bilateral low back pain with sciatica, sciatica laterality unspecified Apply 1 patch topically 1 (one) time each day. 90 each 1 5 025 Discontin ued(Cost of medicatio n) Active Problems Problem Noted Date Diagnosed Date [...] Assessment & Plan: Reviewed this is not Marketing Analytics Analyst in nature and recommended she follow up [...] appears to be MSK related and not ob/gyn physician related. Right hip pain 04/03/2017 Osteoarthritis of hip 04/22/2012 Overview (05/04/2024): Osteoarthritis of hip - 715.15 Encounters Date Type Department Care Team Description 12/27/2024 1:00 PM EDT Office Visit Internal Medicine - [address] [phone] Ria Bernstein NP Primary hypertension (Primary Dx); Chronic GERD; Fibromyalgia; Chronic bilateral low back pain with sciatica, sciatica laterality unspecified; Anxiety 12/27/2024 Telephone Internal Medicine - [address] [phone] Mary Traylor DO prior auth 12/22/2024 Telephone Bariatric Surgery [address] [phone] Nick Morales MD Prior auth (Denial) 12/15/2024 3:00 PM EDT Consult Bariatric Surgery [address] [phone] Nick Morales MD Class 2 severe obesity due to excess calories with serious comorbidity and body mass index (BMI) of 35.0 to 35.9 in adult (CMS/HCC V24, CMS/HCC V28) from Last 3 Months Immunizations Name Administration [...] disease) T2DM (type 2 diabetes mellit us) ([facility] V24, [facility] V28) DX:T2DM (type 2 diabetes christina litus) ([facility]) Family History Medical History Relation [...] Sign Reading Time Taken Comments Blood Pressure 115/85 12/27/2024 1:06 PM EDT A Pulse 79 12/27/2024 1:06 PM EDT Temperature 36.6 C (97.8 F) 12/15/2024 3:08 PM EDT Respiratory Rate 16 05/20/2024 2:02 PM EST Oxygen Saturation - - Inhaled Oxygen Concentration - - Weight 82.1 kg (181 lb) 12/27/2024 1:06 PM EDT Height 152.4 cm (5') 12/27/2024 1:06 PM EDT Body Mass Index 35.35 12/27/2024 1:06 PM EDT Plan of Treatment Upcoming Encounters Date Type Department Care Team (Late st Contact Info) Description 03/08/2025 2:30 PM EDT Nutrition Bariatric Surgery - [place] [address] [phone] Selma Ivey, [place] [address] [phone] 04/28/2025 3:00 PM EDT Office Visit Internal Medicine - [facility] [address] [place] [phone] Mary Traylor, DO [address] [place] [address] 05/04/2025 2:00 PM EDT Office Visit Bariatric Surgery - [place] [address] [phone] Nick Morales MD [address] [phone] Health Maintenance Due Date Last Done Comments Breast Cancer Screening 1965 Pneumococcal Vaccine: 50+ Years (2 of 2 - PCV) 01/04/2016 01/03/2015, 11/03/2009, 05/13/2008 Pneumococcal Vaccine: Pediatrics (0 to 5 Years) and At-Risk Patients (6 to 64 Years) (2 of 2 - PCV) 01/04/2016 01/03/2015, 11/03/2009, 05/13/2008 Zoster Vaccines (2 of 2) 12/29/2017 11/03/2017 Colorectal Cancer Screening: Colonoscopy 06/14/2022 Depression Screening 06/14/2022 HIV Screening 06/14/2022 Hepatitis C Screening 06/14/2022 Social Influencers of Health Screening 06/14/2022 Medicare Annual Wellness Visit 01/21/2023 01/21/2022 RSV Immunization Adult Patients (1 - Risk 60-74 years 1-dose series) 2023 Hypertension/CHF/CAD Annual BMP Blood Test 12/15/2025 12/15/2024, 05/20/2024, 07/30/2023 Cervical Cancer Screening: HPV 01/13/2028 01/12/2023 DTaP,Tdap,and Td Vaccines (4 - Td or Tdap) 11/14/2028 11/14/2018, 06/12/2014, 03/16/2008 Cholesterol Screening (Lipid Panel) 12/15/2029 12/15/2024 COVID-19 Vaccine Completed 03/16/2024, , 06/09/2021, Additional [...] Procedure Name Priority Date/Time Associated Diagnosis Comments COMPREHENSIVE METABOLIC PANEL Routine 12/15/2024 3:37 PM EDT Class 2 severe obesity due to excess calories with serious comorbidity and body mass index (BMI) of 35.0 to 35.9 in adult ([facility] V24, [facility] V28) LIPID PANEL WITH REFLEX TO DIRECT LDL Routine 12/15/2024 3:37 PM EDT Class 2 severe obesity due to excess calories with serious comorbidity and body mass index (BMI) of 35.0 to 35.9 in adult ([facility] V24, [facility] V28) EXTERNAL XRAY REPORT 11/02/2024 EXTERNAL MRI REPORT 11/02/2024 HM HPV Routine 01/12/2023 from Last 3 Months or Most Recently Relevant to Health Maintenance Results * (ABNORMAL) Lipid panel with reflex to direct LDL (12/15/2024 3:37 PM EDT) Cholesterol 138 0 - 200 mg/dL LAB CHEMISTRY METHOD [facility] Triglycerides 251(H) 0 - 150 mg/dL LAB CHEMISTRY METHOD 12/15/2024 7:04 PM [facility] HDL 37(L) >=40 mg/dL LAB CHEMISTRY METHOD 12/15/2024 7:04 PM [facility] LDL Calculated 51 0 - 100 mg/dL LAB CHEMISTRY METHOD 12/15/2024 7:04 PM [facility] VLDL Cholesterol Abdias 50.2 mg/dL LAB CHEMISTRY METHOD 12/15/2024 7:04 PM [facility] Non HDL Chol. (LDL+VLDL) 101 <145 mg/dL LAB CHEMISTRY METHOD 12/15/2024 7:04 PM [facility] Chol/HDL Ratio 3.7 0.0 - 4.4 LAB CHEMISTRY METHOD 12/15/2024 7:04 PM [facility] Blood Venous blood specimen / Unknown Venipuncture / Unknown 12/15/2024 3:37 PM EDT 12/15/2024 3:37 PM EDT us Nick Morales MD LAB BLOOD ORDERABLES Final R esult [facility] [address] [place] [address], * (ABNORMAL) Comprehensive metabolic panel (12/15/2024 3:37 PM EDT) Sodium 140 133 - 145 mmol/L LAB CHEMISTRY METHOD 12/15/2024 7:04 PM [facility] Potassium 3.6 3.5 - 5.5 mmol/L LAB CHEMISTRY METHOD 12/15/2024 7:04 PM [facility] Chloride 104 96 - 110 mmol/L LAB CHEMISTRY METHOD 12/15/2024 7:04 PM [facility] CO2 28 21 - 32 mmol/L LAB CHEMISTRY METHOD 12/15/2024 7:04 PM [facility] Anion Gap 8 3 - 11 LAB CHEMISTRY METHOD 12/15/2024 7:04 PM [facility] Glucose 111(H) 70 - 100 mg/dL LAB CHEMISTRY METHOD 12/15/2024 7:04 PM [facility] BUN 16 5 - 25 mg/dL LAB CHEMISTRY METHOD 12/15/2024 7:04 PM [facility] Creatinine 0.84 0.50 - 1.10 mg/dL LAB CHEMISTRY METHOD 12/15/2024 7:04 PM [facility] eGFR 79 >=60 mL/min/1. 73m2 LAB CHEMISTRY METHOD 12/15/2024 7:04 PM T [facility] Comment:Calculation based on the Chronic Kidney Disease Epidemiology Collaboration (CKD-EPI) equation refit without adjustment for race. BUN/Creatinine Ratio 19.0 LAB CHEMISTRY METHOD 12/15/2024 7:04 PM T [facility] Calcium 9.2 8.5 - 10.5 mg/dL LAB CHEMISTRY METHOD 12/15/2024 7:04 PM [facility] AST (SGOT) 25 10 - 42 unit/L LAB CHEMISTRY METHOD 12/15/2024 7:04 PM [facility] ALT (SGPT) 54 10 - 60 unit/L LAB CHEMISTRY METHOD 12/15/2024 7:04 PM [facility] Alkaline Phosphatase 96 42 - 121 unit/L LAB CHEMISTRY METHOD 12/15/2024 7:04 PM [facility] Total Protein 6.9 6.0 - 8.0 g/dL LAB CHEMISTRY METHOD 12/15/2024 7:04 PM [facility] Albumin 3.8 3.2 - 5.0 g/dL LAB CHEMISTRY METHOD 12/15/2024 7:04 PM [facility] Total Bilirubin 0.2 0.0 - 1.4 mg/dL LAB CHEMISTRY METHOD 12/15/2024 7:04 PM [facility] Blood Venous blood specimen / Unknown Venipuncture / Unknown 12/15/2024 3:37 PM EDT 12/15/2024 3:37 PM EDT us Nick Morales MD LAB BLOOD ORDERABLES Final R esult [facility] [address] [place] [address], [place] [phone] * External Xray Report (11/02/2024) Anatomical Region Laterality Modality Radiographic Sarah ging us Provider [facility] XR PROCEDURES Final Result * External MRI Report (11/02/2024) Anatomical Region Laterality Modality Magnetic Resonan ce us Provider [facility] MRI PROCEDURES Final Result * Cervical Cancer Screening: HPV (01/12/2023) Cervical Cancer Screening: HPV negative, abstracted Historical Provider HEALTH MAINTENANCE Final Result from Last 3 Months or Most Recently Relevant to Health Maintenance Insurance MEDICAID - [place] MEDICARE Care Teams Teaseler Relationship Specialty Start Date End Date Mary Traylor DO [address] [place] [address] PCP - General 02/05/23
--- OUTSIDE RECORDS SUMMARY | 2025-01-03 11:40 | XMS_ITS | Clinical Summary ---
Author Organization [facility] Address [address] [place] [address] Care Team Providers Care Chief Telephone Operator Name Role Phone Nilesh Riddle MD Primary Care Provider Allergies Active Allergy Reactions Criticality Noted Date [...] age to complete this topic Care Teams Chief Telephone Operator Relationship Specialty Start Date End Date Nilesh Riddle MD PCP - General Internal Medicine 02/26/17
== END 2025-01-03 11:00 | disposition home or self-care (01) ==
LOC: HO.HSMS 10:30
PROVIDERS: PCP Internal Medicine; Visit Provider Psychiatry & Neurology Neurology
DX: G43.E19 Chronic migraine with aura, intractable, without status migrainosus (principal)
CPT/HCPCS: 64615

== ENCOUNTER → 2025-01-03 10:29 | Outpatient (BNVA) | payer MEDICARE, MEDICAID, SELFPAY | PROVIDERS: PCP Internal Medicine; Visit Provider Psychiatry & Neurology Neurology | DX: G43.E19 Chronic migraine with aura, intractable, without status migrainosus (principal) | CPT/HCPCS: 64615; 99211; J0585 ==

== ENCOUNTER 2025-01-17 12:55 | Outpatient (REF) | payer MEDICARE, MEDICAID, SELFPAY ==
[2025-01-17 21:02] LABS: Bacterial Vaginosis PCR NEGATIVE (Negative); Candida Group PCR NOT DETECTED (Not Detect); Candida glab krusei PCR NOT DETECTED (Not Detect); Trichomonas vaginalis PCR NOT DETECTED (Not Detect)
[2025-01-17 21:55] LABS: CT PCR NOT DETECTED (Not Detect.); NG PCR NOT DETECTED (Not Detect.)
== END 2025-01-17 12:56 | disposition home or self-care (01) ==
LOC: HO.LNP 12:55
PROVIDERS: PCP Internal Medicine; Visit Provider Advanced Practice Midwife
DX: Z01.419 Encounter for gynecological examination (general) (routine) without abnormal findings (principal); R10.2 Pelvic and perineal pain; Z78.0 Asymptomatic menopausal state; Z11.3 Encounter for screening for infections with a predominantly sexual mode of transmission; Z11.8 Encounter for screening for other infectious and parasitic diseases
CPT/HCPCS: 81515; 87491; 87591; 99202; G0101

== ENCOUNTER 2025-01-17 12:55 | Outpatient (AMB) | payer MEDICARE, MEDICAID, SELFPAY ==
--- NOTE | 2025-01-17 13:07 | A.OFFVIS_ITS ---
Vital Signs 01/17/25 13:14 Weight 180 lb Intake Visit Reasons: New patient ovarian cyst Intake Note: Last pap smear 5-7 yrs normal history. 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 Currently sexually active. Denies any vaginal dryness or irritation. Attempting to eat a healthy diet with calcium and vitamin D. Last pap smear; 2 yrs ago at [facility], negative history. Last mammogram; 2023 at [facility]. Colonoscopy is UTD. Denies any family history of breast, ovarian or colon cancer. [facility] Medical History Pelvic pain Hypersomnia Snoring Osteoarthritis of right hip Arthritis Back pain Vitamin D deficiency Anemia Peptic ulcer GERD (gastroesophageal reflux disease) Habitual snoring Fibromyalgia Anxiety Chronic migraine without aura Asthma Hypertension Surgical History History of back surgery H/O colonoscopy Status post bilateral breast reduction Status post arthroscopy of right shoulder History of left hip replacement Family History Mother Breast cancer Father Prostate CA Liver cancer Social History Household Members: None Housing: Apartment Are you a primary healthcare specialist to a significant other at home: No Do you presently have visiting nurse or other home services: No Alcohol intake: never Patient Tobacco Use Status: Never used Tobacco service: No Current occupational status: disabled Current occupation: right hand Female Reproductive History Menstrual Age of Menarche: 9 control method: none Total pregnancies: 2 Full term: 2 History of abnormal pap smear: No History of abnormal mammogram: No Review of Systems Const All systems reviewed & are unremarkable except as noted in HPI and below Reports as per HPI Eyes Reports no additional complaints ENT Reports no additional complaints Card Reports no additional complaints Resp Reports no additional complaints GI Reports as per HPI and Reports no additional complaints Reports as per HPI Musc Reports no additional complaints Skin/Breast Reports as per HPI Neuro Reports no additional complaints Psych Reports no additional complaints Endo Reports no additional complaints Vinay/Lymph Reports no additional complaints Aller/Immun Reports no additional complaints Physical Exam Const General: cooperative, healthy appearing, no acute distress, well developed and alert Orientation/consciousness: patient oriented x3 HEENT Head: Yes normal to inspection Eyes General: appearance normal, both eyes and all related structures Neck Neck: Yes normal visual inspection Thyroid: Thyroid normal Chest Other: damian breast reduction scarring. Chest palpation & inspection: normal inspection of the chest and other (no puckering, dimpling, peau de orange, retraction, discharge, masses) Breast/axilla inspection: normal inspection of the breasts Breast/axilla palpation: normal palpation of the breasts Resp Effort & Inspection: normal respiratory effort GI Inspection: Yes normal to inspection Palpation (GI): Soft to palpation Rectal Exam - Female: deferred General: Yes bladder normal to palpation External Female Exam: normal external appearance and normal appearance of the urethra Speculum Exam - Vagina: normal appearance of the vagina, normal palpation and normal vaginal discharge Speculum Exam - Cervix: normal appearance of the cervix and normal palpation Bimanual exam- vagina & uterus: normal bimanual exam, normal palpation, uterine size normal, bladder normal to palpation, normal palpation and non-tender Bimanual Exam- Adnexa, other: no masses Skin General skin exam: no rashes or lesions noted Rashes: no rashes Neuro General: patient oriented x3 Cognition (Neuro): normal cognition Extrem General: Yes normal to inspection Psych Attitude: cooperative Thought process: Normal thought process present Assessment & Plan Assessment & Plan (1) Pelvic pain: Code(s): R10.2 - Pelvic and perineal pain Category: Medical Plan: Discussed: Workup for pelvic pelvic pain to include pelvic ultrasound, GC chlamydia, BV panel, UA clean-catch, unable to void despite hydrating in office, deferred to lab when able to come back in, she needs to go to another appointment now. Await results for final plan of care follow up in person for test results pending ultrasound completion. The patient expressed understanding and agreement with the plan of care. All of her questions and concerns were addressed to the best of my ability. Total time I personally spent on visit and management today: ?20 minutes. Time spent included review of pertinent office notes in the electronic health record; review of laboratory and imaging results; review of personal family medical history; performing physical exam; discussing diagnosis and plan of care with the patient; documenting the encounter in the EMR. (2) Encounter for well woman exam with routine gynecological exam: Code(s): Z01.419 - Encounter for gynecological examination (general) (routine) without abnormal findings Category: Medical Plan Discussed: Current recommendations for pap smears per ASCCP guidelines. Sign a release records for [facility] for mammogram of Pap results. Breast awareness, periodic self breast exams and yearly mammogram. Maintain a healthy lifestyle, well balanced diet including Calcium 1,200 mg and Vitamin D 600 IU daily, and routine exercise. Contact the office with any postmenopausal bleeding. Patient verbalizes understanding and agrees to the plan of care. She was given opportunity to ask questions and all questions were answered to the best of my ability. 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 This note is constructed using voice recognition software. While every effort has been made to ensure accuracy, pelletizer operator errors may have been included. Orders: Orders US pelvic and transvaginal Today R10.2 - Pelvic and perineal pain CT NG by PCR Vag/Cerv Today R10.2 - Pelvic and perineal pain UA CC w/rflx Micro + Cult Today R10.2 - Pelvic and perineal pain Bacterial Vaginosis Panel Today R10.2 - Pelvic and perineal pain Coding Level of Care Code New Pt Level 2 (05811) New Pt Prev Care 40-64y(17273) Diagnoses Pelvic pain R10.2 Encounter for well woman exam with routine gynecological exam Z01.419
--- OUTSIDE RECORDS SUMMARY | 2025-01-17 14:07 | XMS_ITS | Clinical Summary ---
Author Organization [facility] Address [address] [place] [address] Care Team Providers Care Pricing Strategist Name Role Phone Nilesh Riddle MD Primary Care Provider [phone] Allergies Active Allergy Reactions Criticality Noted Date [...] o f 2) 2013 Influenza Vaccine (#1) 2025 05/13/2008 RSV Adult > 60+ Yrs [...] age to complete this topic Care Teams Pricing Strategist Relationship Specialty Start Date End Date Nilesh Riddle MD PCP - General Internal Medicine 02/26/17
--- OUTSIDE RECORDS SUMMARY | 2025-01-17 14:07 | XMS_ITS | Clinical Summary ---
Author Organization [place] [address] K[address]y can [facility] Address [address] [place], [place] [address]mary[place] [address] Phone Care Team Providers Care Lead Sewage Plant Operator Name Role Phone Mary Traylor DO Primary Care Provider [phone] Allergies Active Allergy Reactions Criticality Noted Date [...] up to 10 days. 20 each 5 Active lidocaine (LIDODERM) 5 % patch Place [...] 90 capsule 5 025 Discontin ued(Reord er) tirzepatide, weight loss, (Zepbound) 2.5 mg/0.5 mL injectionIndicat ions:Class 2 severe obesity due to excess calories with serious comorbidity and body mass index (BMI) of 35.0 to 35.9 in adult ([facility] V24, [facility] V28) Inject 0.5 mL (2.5 [...] Assessment & Plan: Reviewed this is not Hosiery Operator in nature and recommended she follow [...] appears to be MSK related and not blockers skiver related. Right hip pain 04/03/2017 Osteoarthritis of hip 04/22/2012 Overview (05/04/2024): Osteoarthritis of hip - 715.15 Encounters Date Type Department Care Team Description 12/27/2024 1:00 PM EDT Office Visit Internal Medicine - [address] [phone] Ria Bernstein NP Primary hypertension (Primary Dx); Chronic GERD; Fibromyalgia; Chronic bilateral low back pain with sciatica, sciatica laterality unspecified; Anxiety 12/27/2024 Telephone Internal Medicine - [address] [phone] Mary Traylor DO prior auth 12/22/2024 Telephone Bariatric Surgery - [address] [phone] Nick Morales MD Prior auth (Denial) 12/15/2024 3:00 PM EDT Consult Bariatric Surgery - [address] [phone] Nick Morales MD Class 2 severe obesity due to excess calories with serious comorbidity and body mass index (BMI) of 35.0 to 35.9 in adult ([facility] V24, [facility] V28) from Last 3 Months Immunizations Name [...] HISTORICAL HIP REPLACEMENT BREAST REDUCTION 1999 PROCEDURE: [place] BREAST REDUCTION OTHER SURGICAL HISTORY 07/11/2017 PROCEDURE: [place] ENDOSCOPY UPPER SMALL INTESTINE; COMMENT: Biopsy c/w [...] T2DM (type 2 diabetes mellit us) ([facility] V24, [facility] V28) DX:T2DM (type 2 diabetes christina litus) ([facility]) Family History Medical History Relation [...] 2:30 PM EDT Nutrition Bariatric Surgery - [place] [address] [phone] Selma Ivey, [place] [address] [phone] 04/28/2025 3:00 PM EDT Office Visit Internal Medicine - [facility] [address] [place] [phone] Mary Traylor, DO [address] [place] [address] 05/04/2025 2:00 PM EDT Office Visit Bariatric Surgery - [place] [address] [phone] Nick Morales MD [address] [address] Health Maintenance Due Date Last Done Comments [...] - Risk 60-74 years 1-dose series) 2023 Influenza Vaccine (#1) 2025 , 03/16/2024, 04/02/2022, Additional history exists Hypertension/CHF/CAD Annual BMP Blood Test 12/15/2025 12/15/2024, 05/20/2024, 07/30/2023 Cervical Cancer Screening: HPV 01/13/2028 01/12/2023 DTaP,Tdap,and Td Vaccines (4 - Td or Tdap) 11/14/2028 11/14/2018, 06/12/2014, 03/16/2008 Cholesterol Screening (Lipid Panel) 12/15/2029 12/15/2024 COVID-19 Vaccine Completed 03/16/2024, , 06/09/2021, Additional history exists HIB Vaccines Aged Out [...] of 35.0 to 35.9 in adult ([facility] V24, [facility] V28) LIPID PANEL WITH REFLEX TO DIRECT LDL Routine 12/15/2024 3:37 PM EDT Class 2 severe obesity due to excess calories with serious comorbidity and body mass index (BMI) of 35.0 to 35.9 in adult ([facility] V24, [facility] V28) EXTERNAL XRAY REPORT 11/02/2024 EXTERNAL MRI REPORT 11/02/2024 HM HPV Routine 01/12/2023 from Last 3 Months or Most Recently Relevant to Health Maintenance Results * (ABNORMAL) Lipid panel with reflex to direct LDL (12/15/2024 3:37 PM EDT) Cholesterol 138 0 - 200 mg/dL LAB CHEMISTRY METHOD 12/15/2024 7:04 PM [facility] Triglycerides 251(H) 0 - 150 mg/dL LAB CHEMISTRY METHOD 12/15/2024 7:04 PM [facility] HDL 37(L) >=40 mg/dL LAB CHEMISTRY METHOD 12/15/2024 7:04 PM [facility] LDL Calculated 51 0 - 100 mg/dL LAB CHEMISTRY METHOD 12/15/2024 7:04 PM [facility] VLDL Cholesterol Abdias 50.2 mg/dL LAB CHEMISTRY METHOD 12/15/2024 7:04 PM [facility] Non HDL Chol. (LDL+VLDL) 101 <145 mg/dL LAB CHEMISTRY METHOD 12/15/2024 7:04 PM [facility] Chol/HDL Ratio 3.7 0.0 - 4.4 LAB CHEMISTRY METHOD 12/15/2024 7:04 PM [facility] Blood Venous blood specimen / Unknown Venipuncture / Unknown 12/15/2024 3:37 PM EDT 12/15/2024 3:37 PM EDT us Nick Morales MD LAB BLOOD ORDERABLES Final R esult [facility] [address] [place] [address], [place] [phone] * (ABNORMAL) Comprehensive metabolic panel (12/15/2024 3:37 PM EDT) Sodium 140 133 - 145 mmol/L LAB CHEMISTRY METHOD 12/15/2024 7:04 PM [facility] Potassium 3.6 3.5 - 5.5 mmol/L LAB CHEMISTRY METHOD 12/15/2024 7:04 PM [facility] Chloride 104 96 - 110 mmol/L LAB CHEMISTRY METHOD 12/15/2024 7:04 PM [facility] CO2 28 21 - 32 mmol/L LAB CHEMISTRY METHOD 12/15/2024 7:04 PM [facility] Anion Gap 8 3 - 11 LAB CHEMISTRY METHOD 12/15/2024 7:04 PM [facility] Glucose 111(H) 70 - 100 mg/dL LAB CHEMISTRY METHOD 12/15/2024 7:04 PM [facility] BUN 16 5 - 25 mg/dL LAB CHEMISTRY METHOD 12/15/2024 7:04 PM [facility] Creatinine 0.84 0.50 - 1.10 mg/dL LAB CHEMISTRY METHOD 12/15/2024 7:04 PM [facility] eGFR 79 >=60 mL/min/1. 73m2 LAB CHEMISTRY METHOD 12/15/2024 7:04 PM [facility] Comment:Calculation based on the Chronic Kidney Disease Epidemiology Collaboration (CKD-EPI) equation refit without adjustment for race. BUN/Creatinine Ratio 19.0 LAB CHEMISTRY METHOD 12/15/2024 7:04 PM [facility] Calcium 9.2 8.5 - 10.5 mg/dL LAB CHEMISTRY METHOD 12/15/2024 7:04 PM [facility] AST (SGOT) 25 10 - 42 unit/L LAB CHEMISTRY METHOD 12/15/2024 7:04 PM [facility] ALT (SGPT) 54 10 - 60 unit/L LAB CHEMISTRY METHOD 12/15/2024 7[facility] Alkaline Phosphatase 96 42 - 121 unit/L LAB CHEMISTRY METHOD 12/15/2024 7:04 PM [facility] Total Protein 6.9 6.0 - 8.0 g/dL LAB CHEMISTRY METHOD 12/15/2024 7:04 PM [facility] Albumin 3.8 3.2 - 5.0 g/dL LAB CHEMISTRY METHOD 12/15/2024 7:04 PM [facility] Total Bilirubin 0.2 0.0 - 1.4 mg/dL LAB CHEMISTRY METHOD 12/15/2024 7:04 PM [facility] Blood Venous blood specimen / Unknown Venipuncture / Unknown 12/15/2024 3:37 PM EDT 12/15/2024 3:37 PM EDT Nick Morales MD LAB BLOOD ORDERABLES Final R esult [facility] [address] [place] [address], [place] [phone] * External Xray Report (11/02/2024) Anatomical Region Laterality Modality Radiographic Sarah ging us Provider [facility] XR PROCEDURES Final Result * External MRI Report (11/02/2024) Anatomical Region Laterality Modality Magnetic Resonan ce us Provider [facility] MRI PROCEDURES Final Result * Hm Cervical Cancer Screening: HPV (01/12/2023) Cervical Cancer Screening: HPV negative, abstracted us Historical Provider HEALTH MAINTENANCE Final Result from Last 3 Months or Most Recently Relevant to Health Maintenance Insurance MEDICAID - [place] MEDICARE Care Teams Lead Sewage Plant Operator Relationship Specialty Start Date End Date Mary Traylor DO [address] [place] [address] PCP - General 02/05/23
== END 2025-01-17 13:53 | disposition home or self-care (01) ==
LOC: HO.HWS 12:55
PROVIDERS: PCP Internal Medicine; Visit Provider Advanced Practice Midwife
DX: R10.2 Pelvic and perineal pain (principal); Z01.419 Encounter for gynecological examination (general) (routine) without abnormal findings
CPT/HCPCS: 99203; G0101

== ENCOUNTER 2025-03-16 14:03 | Outpatient (AMB) | payer MEDICARE, MEDICAID, SELFPAY ==
--- NOTE | 2025-03-16 14:35 | A.OFFVIS_ITS ---
Vital Signs 03/16/25 14:36 Weight 178 lb BP 168/91 H Blood Pressure Location Rt brachial Position Sitting Respiration 20 Pulse 67 Pulse Source Pulse Oximeter Pulse Oximetry (%) 98 Oxygen Delivery Method Room Air Intake Visit Reasons: Discuss Alternate Procedure Options Traffic Safety Administrator Required: No Allergies SILVER Inhibitors (SILVER INHIBITORS) Allergy (Severe, Verified 03/16/25 14:35) SWELLING celecoxib Allergy (Severe, Verified 03/16/25 14:35) Swelling ibuprofen (From MOTRIN) Allergy (Severe, Verified 03/16/25 14:35) SWELLING prednisone (PREDNISONE) Allergy (Severe, Verified 03/16/25 14:35) SWELLING Contrast dye Allergy (Severe, Uncoded 01/03/25 10:36) Anaphylaxis HPI Comments Details: Yue is back in my office to discuss possibility of further treatment of her lower back pain and upper back pain. She reports that she does not want to perform any injections. She wants me to start her on opioids. I explained to the patient that our opioid program is very strict. I explained to her that in her best interest it would be better if she will go to primary care physician and request primary care physician to prescribe her small doses of Percocet. She is recommended to come back if primary care physician we will refused to prescribe her Percocet. Results of diagnostic sacroiliac joint injection. Patient reported no pain improvement after the injection. She did not complete her pain diary but reports that immediately after the procedure her pain was ranging from 8/10 to 7/10 without significant improvement. Therefore her condition is not sacroiliitis. She went for the MRI of the lumbar spine and MRI demonstrated several levels of the foraminal stenosis. It also demonstrates significant spondylosis. It also demonstrated a cystic formation in the left ovary. It is suggest evaluation under the ultrasound. I will refer this patient to the OBGYN. Meanwhile I will prescribe her cyclobenzaprine to help her pain and to help her rest at night. I will schedule this patient for diagnostic medial branch block L3, L4, dorsal ramus L5. If this procedure will not help the patient I would not be eager to follow on the MRI reported foraminal stenosis with steroid injections up until her OBGYN appointment will not clear out situation with her left ovary. Prior: complains on pain in the lower back on the right side with the radiation down to the right lower extremity on the lateral and posterior surface of the right hip to the level of the knee but not below that no level. She had the last year extensive physical therapy which did not help her pain. She also had extensive chiropractic manipulations which helps her pain minimally and for the short period of time. She also had acupuncture which helps her pain minimally and further short period of time. She had some sort of a steroid injections in [facility] pain management. She had muscle relaxants, NSAIDs, and Tylenol to help her pain. She denies any help from those medications. She never had diagnostic SI joint injections. She also has a history of L4-5 Surgery performed in year 1999. So it might be also postlaminectomy syndrome. She never since 1999 had MRI of the lumbar spine. She reports that sometimes she feel the pain shooting down the leg all the way down to her pinky toe on the right. That could be radiculopathic pain. [facility] Medical History Pelvic pain Hypersomnia Snoring Osteoarthritis of right hip Arthritis Back pain Vitamin D deficiency Anemia Peptic ulcer GERD (gastroesophageal reflux disease) Habitual snoring Fibromyalgia Anxiety Chronic migraine without aura Asthma Hypertension Surgical History History of back surgery H/O colonoscopy Status post bilateral breast reduction Status post arthroscopy of right shoulder History of left hip replacement Family History Mother Breast cancer Father Prostate CA Liver cancer Social History Household Members: None Housing: Apartment Are you a primary hospice patient care secretary to a significant other at home: No Do you presently have visiting nurse or other home services: No Alcohol intake: never Patient Tobacco Use Status: Never used Tobacco service: No Current occupational status: disabled Current occupation: right hand Female Reproductive History Menstrual Age of Menarche: 9 Review of Systems Const All systems reviewed & are unremarkable except as noted in HPI and below ENT Reports Normal hearing present Neuro Reports Normal hearing present, Denies Abnormal speech present, Denies confusion and Denies Sensory deficit (Neuro) Psych Denies confusion Physical Exam Vital Signs: Last Vital Signs Pulse 67 03/16/25 14:36 Resp 20 03/16/25 14:36 BP 168/91 H 03/16/25 14:36 Pulse Ox 98 03/16/25 14:36 Oxygen Delivery Method Room Air 03/16/25 14:36 Const General: no acute distress; No confusion Orientation/consciousness: patient oriented x3 and No confusion Eyes General: appearance normal, both eyes and all related structures Pupils: Equal, round and reactive pupils present EOM: EOMs intact bilaterally Neck Neck: Yes full ROM Chest Chest palpation & inspection: normal inspection of the chest Resp Effort & Inspection: normal respiratory effort, able to speak in complete sentences, normal respiratory pattern, no audible wheezes and no cough Cardio Jugular venous distension: no JVD GI Inspection: Yes normal to inspection Back/Spine/Pelvis Other: Tenderness on palpation in paraspinal spinal region lumbar spine. Tenderness on palpation in projection of the right sacroiliac joint. Flexing forward and flexing backwards aggravate her pain flexing forward aggravate her pain more than flexing backwards. SLR is positive on the right and negative on the left. Flexion of the right foot is aggravating her pain even more at maximal SLR. Roberto Carlos test is positive on the right. Pelvic compression and pelvic distraction tests are positive on the right. Thigh thrust test is positive on the right. Neuro General: patient oriented x3, gait normal and No confusion Cranial nerves: Yes CN's II-XII intact bilaterally, Yes Equal, round and reactive pupils present, Yes Normal hearing present and Yes Ability to bilaterally elevate shoulders present Speech: No Abnormal speech present Gait exam (Neuro): Normal gait present Motor exam (neuro): 5/5 motor strength present throughout Sensory Exam: No Sensory deficit (Neuro) Extrem General: No pedal edema Psych Speech and movement: Normal speech and movement present Affect: normal affect Attitude: cooperative Thought process: Normal thought process present Thought content: Normal thought content present Insight: Good insight present (Psych) Judgement: Good judgement present (Psych) Results Reviewed Results Reviewed: MR lumbar spine without gadolinium Comparison: None Findings: No plain films are available for comparison. Thus, for numbering purposes, 5 lumbar type vertebral bodies will be presumed. This should be confirmed with plain films prior to any lumbar spinal intervention. Loss of normal lumbar lordosis. 2 mm of retrolisthesis of L1 on L2. No acute fracture or pathologic bone lesion. Mild reactive signal throughout the endplates of the lumbar and lower thoracic spine. Cauda equina and conus medullaris within normal limits. Paraspinous musculature intact. 20 mm low T2 intensity focus within the left adnexa, which may represent abnormality within the left ovary or a uterine fibroid. L1-L2: Moderate disc desiccation. Mild diffuse disc bulge. Mild facet and ligamentum flavum hypertrophy. Mild epidural lipomatosis. Mild canal stenosis. Mild bilateral foraminal stenosis. L2-L3: Moderate disc desiccation. Mild diffuse disc bulge. Mild facet and ligamentum flavum hypertrophy. Mild epidural lipomatosis. Mild canal stenosis. Mild bilateral foraminal stenosis. L3-L4: Moderate disc desiccation. Mild diffuse disc bulge. Mild facet and ligamentum flavum hypertrophy. Mild epidural lipomatosis. Mild canal stenosis. Moderate bilateral foraminal stenosis. L4-L5: Mild disc desiccation and diffuse disc bulge. Mild facet and ligamentum flavum hypertrophy. Mild epidural lipomatosis. Mild canal stenosis. Moderate bilateral foraminal stenosis. L5-S1: Mild bilateral facet hypertrophy. Moderate epidural lipomatosis. Mild canal stenosis. Moderate bilateral foraminal stenosis. IMPRESSION: 1. Multilevel degenerative disc and facet disease, as well as ligamentum flavum hypertrophy. 2. Mild multilevel canal stenoses. 3. Multilevel foraminal stenoses, worst at L3-L4, L4-L5, and L5-S1 where there are moderate foraminal stenoses. 4. Left ovarian abnormality versus uterine fibroid. Further assessment with ultrasound is recommended. Assessment & Plan Assessment & Plan (1) Ovarian cyst: Code(s): N83.209 - Unspecified ovarian cyst, unspecified side Category: Medical (2) Chronic pain syndrome: Code(s): G89.4 - Chronic pain syndrome Category: Medical (3) Postlaminectomy syndrome, lumbar: Code(s): M96.1 - Postlaminectomy syndrome, not elsewhere classified Category: Medical (4) Spondylosis of lumbar region without myelopathy or radiculopathy: Code(s): M47.816 - Spondylosis without myelopathy or radiculopathy, lumbar region Category: Medical Plan referral to OBGYN was made due to incidental finding of the left ovarian cyst. This patient was under my care for long period of time and received sacroiliac joint injections. She was also offered medial branch blocks however now she reports that she does not want me to do any injections. She wants me to prescr gerry Percocet to her. I explained to her that in her best interest it would be better if her primary care physician will prescribe her Percocet. Patient will try to request primary care physician to prescribe her Percocet. Coding Level of Care Code Est Pt Level 3 (69618) Diagnoses Ovarian cyst N83.209 Chronic pain syndrome G89.4 Postlaminectomy syndrome, lumbar M96.1 Spondylosis of lumbar region without myelopathy or radiculopathy M47.816
[2025-03-16 14:36] VITALS: BP 168/91; PULSE 67; RESP 20; O2SAT 98
--- OUTSIDE RECORDS SUMMARY | 2025-03-16 17:53 | XMS_ITS | Clinical Summary ---
Author Organization [facility] Address [address] [place] [address] Phone Care Team Providers Care Floor Helper Name Role Phone Unknown, Unknown Primary Care Provider Nae schwartz Allergies Active Allergy Reactions Criticality Noted Date Comments Marvin Inhibitors Unknown 10/03/2008 Ibuprofen Unknown 10/03/2008 Medications warfarin (COUMADIN) 5 MG tablet COUMADIN (WARFARIN SODIUM) 5 MG TABLET; Dose: 5 MG; Form: Take 1 TABLET; Route: PO; Frequency: QPM; Directions: take evening before your surgical procedure; Details: Duration: 1 day(s); Dispense: 1 Tablet(s); Status: Active; Source: ELSI VIVAS; Date: 01/14/2011 1 Active OXYCODONE HCL (OXYCODONE ORAL) OXYCODONE 5MG TABLET; Dose: Not available; Form: Take 2 TABLET; Route: PO; Frequency: Q4H PRN Pain; Directions: This medicaiton can be sedating. Review your other medications with your pharmacist to avoid interactions. Do not drink or drive while taking this medication. Decrease usage as the pain decreases. ; Details: Dispense: 80 Tablet(s); Status: Active; Source: NORA TAMAYO M.D.; Date: 03/24/2011 1 Active OXYCODONE HCL (OXYCONTIN ORAL) OXYCONTIN (OXYCODONE CONTROLLED RELEASE) 10 MG TAB ER 12H; Dose: 10 MG; Form: Take 1 TAB ER 12H; Route: PO; Frequency: BID; Directions: do not drink or drive while taking this medication.; Details: Dispense: 60 Tablet(s); Status: Active; Source: AURELIANO BARTON M.D.; Date: 02/21/2011 1 Active oxyCODONE-aceta minophen (PERCOCET) 5-325 mg per tablet PERCOCET 5 MG/325 MG (OXYCODONE 5 MG/ACETAMINOPHEN 325 MG) 5MG-325MG TABLET; Dose: Not available; Form: Take 1-2 TABLET; Route: PO; Frequency: Q4-6H PRN pain; Directions: Not available; Details: Dispense: 40 Tablet(s); Status: Active; Source: DONNA CORRAL P.AZahra-CZahra; Date: 12/20/2008 9 Active HYDROcodone-marvin taminophen (VICODIN) 5-500 mg per tablet VICODIN (HYDROCODONE 5 MG + APAP) 5-500MG TABLET; Dose: 1 TAB; Form: Not available; Route: PO; Frequency: Q4-6H PRN Pain; Directions: Do not drive while on this medication; Details: Dispense: 15 Tablet(s); Status: Active; Source: NORA TAMAYO M.D.; Date: 12/22/2008 9 Active Active Problems Problem Noted Date Diagnosed Date Osteoarthritis of hip 04/22/2012 Overview (08/26/2014): Osteoarthritis of hip - 715.15 Immunizations Immunization Administration Dates Next Due Pneumococcal polysaccharide PPSV23 02/19(Deferred: Other - does not meet criteria) Social History Tobacco Use Types Packs/Day Years Used Date Smoking Tobacco: Never Education Answer Date Recorded Are you interested in more education? Not on tim e 11/02/2022 Are you concerned about learning? Not on file 11/02/2022 No 11/02/2022 No 11/02/2022 Digital Access Answer Date Recorded No 11/30/2022 No 11/30/2022 No 11/30/2022 Reliable internet access at home? Not on file 11/30/2022 Device with a working camera? Not on file Comments Unknown Sex and Gender Information Value Date Recorded Sex Assigned at Not on file Legal Sex Female 5:12 PM EST Gender Identity Not on file Sexual Orientation Not on file Last Filed Vital Signs Vital Sign Reading Time Taken Comments Blood Pressure - - Pulse - - Temperature 36.7 C (98 F) 05/29/2014 11:21 AM EST Respiratory Rate - - Oxygen Saturation - - Inhaled Oxygen Concentration - - Weight 81.6 kg (180 lb) 05/29/2014 11:21 AM EST Height 152.4 cm (5') 05/29/2014 11:21 AM EST Body Mass Index 35.15 05/29/2014 11:21 AM EST Plan of Treatment Health Maintenance Due Date Last Done Comments LIPID PANEL 1963 DEPRESSION SCREENING 1975 SMOKING Hx and SMOKELESS TOBACCO SCREENING 1976 HEPATITIS C SCREENING 1981 HIV ONE-TIME SCREENING (18-65 YEARS) 1981 PAP SMEAR 1984 COLOGUARD 2008 COLONOSCOPY 2008 COLORECTAL CANCER SCREENING 2008 FIT TEST 2008 FOBT 2008 SIGMOIDOSCOPY 2008 VIRTUAL COLONOSCOPY 2008 MAMMOGRAM 08/17/2009 08/17/2007 PNEUMOCOCCAL VACCINES (50+ years) (2 of 2 - PCV) 01/04/2016 01/03/2015 ZOSTER VACCINES (2 of 2) 12/29/2017 11/03/2017 INFLUENZA VACCINE (#1) 2025 , 04/16/2018, 03/20/2015, Additional history exists COVID-19 VACCINE (3 - season) 2025 11/12/2020, 10/22/2020 Adult Td,Tdap Booster 11/14/2028 11/14/2018, 014 RSV VACCINE (1 - 1-dose 75+ series) 2038 HEPATITIS A VACCINES Aged Out No long er eligible based on patient's age to complete this topic HIB VACCINES Aged Out No longer eligi ble based on patient's age to complete this topic MENINGOCOCCAL VACCINES (ACWY) Aged Out No longer eligible based on patient's age to complete this topic MENINGOCOCCAL VACCINES (B) Aged Out N o longer eligible based on patient's age to complete this topic Medical Devices Not on file Procedures Procedure Name Priority Date/Time Associated Diagnosis Comments BI MAMMOGRAM OUTSIDE Routine 08/17/2007 10:45 AM EST from Last 3 Months or Most Recently Relevant to Health Maintenance [place] [facility] [place] HEALTH MEDICARE PART A & [place] B [facility] MEDICARE PART A & B Care Teams Floor Helper Relationship Specialty Start Date End Date Unknown, Unknown, PCP - General 12/19/14 Additional Source Comments The information contained in this document represents components of the legal health record. It is not the complete legal health record.[facility]
--- OUTSIDE RECORDS SUMMARY | 2025-03-16 17:53 | XMS_ITS ---
Author Name [facility] [[email or web address]]P Organization Unknown Care Team Organization Name Specialty Phone Email Start Date End Da te [facility] 01/21/2024 5 [facility] 12/12/2022 5
--- OUTSIDE RECORDS SUMMARY | 2025-03-16 17:53 | XMS_ITS | Clinical Summary ---
Author Organization [facility] Address [address] [place] [address] Care Team Providers Care Curb Supervisor Name Role Phone Nilesh Riddle MD Primary Care Provider [phone] Allergies Active Allergy Reactions Criticality Noted Date [...] age to complete this topic Care Teams Curb Supervisor Relationship Specialty Start Date End Date Nilesh Riddle MD PCP - General Internal Medicine 02/26/17
== END 2025-03-16 15:07 | disposition home or self-care (01) ==
LOC: HO.PMC 14:03
PROVIDERS: Visit Provider Anesthesiology
DX: N83.209 Unspecified ovarian cyst, unspecified side (principal); G89.4 Chronic pain syndrome; M96.1 Postlaminectomy syndrome, not elsewhere classified; M47.816 Spondylosis without myelopathy or radiculopathy, lumbar region
CPT/HCPCS: 99213

== ENCOUNTER → 2025-03-16 14:03 | Outpatient (BNVA) | payer MEDICARE, MEDICAID, SELFPAY | PROVIDERS: Visit Provider Anesthesiology | DX: Z71.2 Person consulting for explanation of examination or test findings (principal); G89.4 Chronic pain syndrome; N83.202 Unspecified ovarian cyst, left side; M47.816 Spondylosis without myelopathy or radiculopathy, lumbar region | CPT/HCPCS: 99212 ==

== ENCOUNTER 2025-04-18 14:58 | Outpatient (AMB) | payer MEDICARE, MEDICAID, SELFPAY ==
--- NOTE | 2025-04-18 15:01 | MHC.OFFVIS ---
Vital Signs 04/18/25 15:02 Height 5 ft Weight 180 lb 4 oz BMI 35.2 BP 156/98 H Blood Pressure Location Lt brachial Position Sitting Pulse 116 H Pulse Source Pulse Oximeter Pulse Oximetry (%) 98 Oxygen Delivery Method Room Air Intake Visit Reasons: Botox Intake Note: Botox Fire Fighting Equipment Specialist Required: No Accompanied by: Self / Same As Patient Allergies SILVER Inhibitors (SILVER INHIBITORS) Allergy (Severe, Verified 04/18/25 15:02) SWELLING celecoxib Allergy (Severe, Verified 04/18/25 15:02) Swelling ibuprofen (From MOTRIN) Allergy (Severe, Verified 04/18/25 15:02) SWELLING prednisone (PREDNISONE) Allergy (Severe, Verified 04/18/25 15:02) SWELLING Contrast dye Allergy (Severe, Uncoded 01/03/25 10:36) Anaphylaxis Medication List - Last Reconciled 04/18/25 by Martha Torres MD albuterol sulfate 90 mcg/actuation (ProAir HFA) 2 puffs inhalation QID PRN baclofen 10 mg PO BID cholecalciferol (vitamin D3) 1 cap PO DAILY clonidine HCl 0.1 mg PO BEDTIME PRN ferrous sulfate 1 tab PO Q OTHER DAY fluticasone propionate 50 mcg/actuation 1 spray intranasal BEDTIME hydrochlorothiazide 1 tab PO QAM losartan 100 mg PO DAILY metoclopramide HCl 5 mg PO Q4-6H PRN 7 days metoprolol tartrate 1 tab PO DAILY omeprazole 1 cap PO DAILY onabotulinumtoxinA (Botox) 200 units subcut .Q 3 months paroxetine HCl 20 mg PO DAILY HPI Comments Details: ? 59y/o female comes for treatment of migraines with botox. How many migraine days prior to botox-30 How long do the migraines last-2 days Intensity of migraine-decreased ER visits related to migraine-yes Effectiveness of botox from last two treatment(s) How many migraine days since receiving treatment:4-5 Change? in intensity of migraine?decreased Change in frequency of migraine?decreased Change in use of acute medication for migraine?decreased Change in quality of life?better ER visits related to migraine?none Have at least three months elapsed since last treatment (Last botox date - frequency of injections) 3 mths ??? Most frequent reported adverse reactions following injection of botox for chronic migraine include neck pain (9%), headache(5%), eyelid ptosis(4%), migraine(4%), muscular weakness(4%), musculuskeletal stiffness(4%), bronchitis(3%), injection site pain (3%), musculoskeletal pain(3%), myalgia(3%), facial paresis(2%), HTN(2%) and muscle spasms(2%) were discussed in detail. ??? Botulinum toxin typeA 200units Lot no [id number] expiration Jun 2027 was diluted with 4 cc of normal saline . ??? Muscles injected- ??? Frontalis 4 sites ??? Procerus 1 site ??? Business Intern- 2 sites ??? Temporalis- 8 sites ??? Occipitalis- 6 sites ??? Cervical paraspinals- 4 sites ??? Trapezius- 6 sites- 10 units each ??? 5 units each in 31 site ??? Total use- 185units ??? Discarded-15units [facility] Medical History Pelvic pain Hypersomnia Snoring Osteoarthritis of right hip Arthritis Back pain Vitamin D deficiency Anemia Peptic ulcer GERD (gastroesophageal reflux disease) Habitual snoring Fibromyalgia Anxiety Chronic migraine without aura Asthma Hypertension Surgical History History of back surgery H/O colonoscopy Status post bilateral breast reduction Status post arthroscopy of right shoulder History of left hip replacement Family History Mother Breast cancer Father Prostate CA Liver cancer Social History Household Members: None Housing: Apartment Are you a primary daycare assistant to a significant other at home: No Do you presently have visiting nurse or other home services: No Alcohol intake: never Patient Tobacco Use Status: Never used Tobacco service: No Current occupational status: disabled Current occupation: right hand Female Reproductive History Menstrual Age of Menarche: 9 Physical Exam Vital Signs: Last Vital Signs Pulse 116 H 04/18/25 15:02 BP 156/98 H 04/18/25 15:02 Pulse Ox 98 04/18/25 15:02 Oxygen Delivery Method Room Air 04/18/25 15:02 BMI result Body Mass Index 35.2 Const General: cooperative, healthy appearing and no acute distress Orientation/consciousness: patient oriented x3 HEENT Other: tenderness in right parietal and temporal region , pain when she opens her mouth Eyes Pupils: Equal, round and reactive pupils present Neck Other: tenderness in right neck, limited lateral neck movement due to pain. Resp Effort & Inspection: normal respiratory effort and able to speak in complete sentences Cardio Rate: regular rate Peripheral pulses: Peripheral pulses 2+ throughout GI Palpation (GI): Soft to palpation Skin Lesions: no lesions Rashes: no rashes Neuro General: patient oriented x3, tone normal and moves all extremities Cranial nerves: Yes Equal, round and reactive pupils present, Yes Nystagmus not present and Yes Normal facial strength present Gait exam (Neuro): Normal gait present Motor exam (neuro): 5/5 motor strength present throughout and Normal motor muscle tone present throughout Office Procedures Botulinum toxin Injection 65297 - Migraine Procedure code (CPT) selection complete Office Meds onabotulinumtoxinA 200 unit solution for injection Performing Provider: Martha Torres MD Performing Location: [facility] [place] [facility] Administered by: Martha Torres MD on 04/18/25 15:30 Dose Route Admin Location Dispensed Lot Number Expiration Date [facility] [employer] Worker 185 unit subcut 200 units [id number] ALLERGAN/BOTOX Total Dispensed Waste 200 units 7.5 % Comments: see hpi Assessment & Plan Assessment & Plan (1) Migraine with aura, intractable, without status migrainosus: Code(s): G43.119 - Migraine with aura, intractable, without status migrainosus Category: Medical (2) Chronic migraine with aura: Code(s): G43.109 - Migraine with aura, not intractable, without status migrainosus Category: Medical Qualifiers: Status migrainosus presence: without status migrainosus Intractability: intractable Qualified Code(s): G43.E19 - Chronic migraine with aura, intractable, without status migrainosus Plan patient tolerated the procedure well she will call with any side effects Orders: Orders AMB Botulinum toxin Injection Today G43.E19 - Chronic migraine with aura, intractable, without status migrainosus Coding Level of Care Code Est Pt Level 1 (66181) Diagnoses Migraine with aura, intractable, without status migrainosus G43.119 Intractable chronic migraine with aura and without status migrainosus G43.E19 Status migrainosus presence: without status migrainosus Intractability: intractable CPT Codes Botox Injection - Botox 3: 57398 - Migraine ([id number])
[2025-04-18 15:02] VITALS: BP 156/98; PULSE 116; O2SAT 98; BMI 35.2
--- OUTSIDE RECORDS SUMMARY | 2025-04-18 17:52 | XMS_ITS | Encounter Summary ---
Author Organization [facility] Address [address] [place] [address] Care Team Providers Care Top Installer Name Role Phone LaytonMary Primary Care Provider [phone] Encounter Details Date Type Department Care Team (Late Contact Info) Description 04/09/2025 Results Follow-Up Internal Medicine - [facility] [address] [place] [address] Ria Bernstein, ANAMIKA [address] [place] [address] Social History Tobacco Use Types Packs/Day Years Used Date Smoking Tobacco: Never Smokeless Tobacco: Never Alcohol Use Standard Drinks/Week Comments No 0 (1 standard drink = 0.6 oz pur e alcohol) Comments No Sex and Gender Information Value Date Recorded Sex Assigned at Not on file Legal Sex Female 3:50 AM EST Gender Identity Not on file Sexual Orientation Not on file documented as of this encounter Plan of Treatment Upcoming Encounters Date Type Department Care Team (Late Contact Info) Description 04/27/2025 8:15 AM EDT Office Visit Bariatric Surgery - [place] [address] [facility] [address] [place] [phone] Nick Morales MD [address] [place] [phone] 05/30/2025 12:30 PM EST Nutrition Bariatric Surgery - [place] [address] [facility] [address] [place] [address] Selma Ivey, RD 175 [facility] [address] [place] [address] 08/16/2025 1:15 PM EST Office Visit Internal Medicine - [facility] [address] [place] [address] Ria Bernstein, ANAMIKA [address] [place] [address] documented as of this encounter Visit Diagnoses Not on filedocumented in this encounter Care Teams Top Installer Relationship Specialty Start Date End Date Mary Traylor DO [address] [place] [phone] PCP - General 02/05/23 documented as of this encounter
--- OUTSIDE RECORDS SUMMARY | 2025-04-18 17:52 | XMS_ITS | Clinical Summary ---
Author Organization [facility] Address [address] [place] [address] Care Team Providers Care [facility] Shift Lead Name Role Phone Nilesh Riddle MD Primary Care Provider [phone] Allergies Active Allergy Reactions Criticality Noted Date [...] age to complete this topic Care Teams [facility] Shift Lead Relationship Specialty Start Date End Date Nilesh Riddle MD PCP - General Internal Medicine 02/26/17
--- OUTSIDE RECORDS SUMMARY | 2025-04-18 17:53 | XMS_ITS | Clinical Summary ---
Author Organization [facility] Address [address] [place] [address] Phone Care Team Providers Care Private Investigator Name Role Phone Unknown, Unknown Primary Care [...] Insurance [place] [facility] [place] & B Member Subscriber Plan / Payer ( fective 1995-Present) Name:Yue Araujo Member ID:[id number] Relation to Subscriber:Self Name:Yue Araujo Subscriber ID:[id number] Payer ID:[id number] Group ID:Not on file Type:Medicare Address: [facility] [address] [place] [address] HEALTH MEDICARE PART A & B [place] & B [facility] MEDICARE PART A & B Member Subscriber Plan / Payer (Ef fective 1995-Present) Name:Yue Araujo Member ID:[id number] Relation to Subscriber:Self Name:Yue Araujo Subscriber ID:[id number] Payer ID:[id number] Group ID:Not on file Type:Medicare Address: [facility] [employer] [address] [place] [address] Care Teams Private Investigator Relationship Specialty Start Date End Date Unknown, Unknown, PCP - General 12/19/14 Additional Source Comments The information contained in this document represents components of the legal health record. It is not the complete legal health record.[facility]
--- OUTSIDE RECORDS SUMMARY | 2025-04-18 17:53 | XMS_ITS | Clinical Summary ---
Author Organization [address] [facility], [address] [place] [phone] Phone Care Team Providers Care Leg Man Name Role Phone Mary Traylor DO Primary Care Provider [phone] Allergies Active Allergy Reactions Criticality Noted Date [...] (FLONASE) 50 mcg/actuation nasal spray 7 Active budesonide (Pulmicort Flexhaler) 180 mcg/actuation inhaler Inhale 1 puff by mouth 2 (two) times a day. Rinse mouth with water after use to reduce aftertaste and incidence of candidiasis. Do not swallow. 3 each 1 4 Active metoprolol succinate (TOPROL-XL) 50 mg 24 hr tablet TAKE ONE TABLET BY MOUTH DAILY 90 tablet 1 5 Active amitriptyline (ELAVIL) 10 mg tablet TAKE 1 TABLET(10 MG) BY MOUTH AT BEDTIME 90 tablet 5 Active amLODIPine (NORVASC) 5 mg tablet Take 1 tablet (5 mg total) by mouth 1 (one) time each day. 5 Active omeprazole (PriLOSEC) [address] capsuleIndication s:Chronic GERD Take 1 capsule (40 mg total) by mouth 1 (one) time each day. 90 each 1 5 06/25/20 25 Active cloNIDine (CATAPRES) 0.1 mg tabletIndications :Anxiety Take 1 tablet (0.1 mg total) by mouth 2 (two) times a day. 180 each 1 5 06/25/20 25 Active losartan (COZAAR) 100 mg tabletIndications :Primary hypertension Take 1 tablet (100 mg total) by mouth 1 (one) time each day. 90 each 1 5 06/25/20 25 Active amLODIPine (NORVASC) 5 mg tabletIndications :Primary hypertension Take 1 tablet (5 mg total) by mouth 1 (one) time each day. 90 each 1 5 06/25/20 25 Active hydroCHLOROthiazi de (HYDRODIURIL) 25 mg tabletIndications :Primary hypertension Take 1 tablet (25 mg total) by mouth 1 (one) time each day. 90 each 1 5 06/25/20 25 Active PARoxetine (PAXIL) 20 mg tablet Take 1 tablet (20 mg total) by mouth 1 (one) time each day. 90 tablet 1 5 Active cholecalciferol (VITAMIN D-3) 50 mcg (2,000 unit) capsule TAKE 1 CAPSULE BY MOUTH ONCE DAILY 90 capsule 1 5 Active baclofen (LIORESAL) 10 mg tabletIndications :Chronic bilateral low back pain with sciatica, sciatica laterality unspecified Take 1 tablet (10 mg total) by mouth 2 (two) times a day if needed for muscle spasms for up to 10 days. 20 each 5 Active albuterol HFA (PROAIR HFA ; PROVENTIL HFA ; VENTOLIN HFA) 90 mcg/actuation inhaler Inhale 2 puffs by mouth every 4 (four) hours if needed for wheezing. 20 g 1 5 02/14/20 26 Active Active Problems Problem Noted Date Diagnosed Date Class 1 obesity with serious comorbidity and body mass index (BMI) of 34.0 to 34.9 in adult 02/06/2025 Chronic GERD 05/04/2024 Class 1 obesity 05/04/2024 [...] Assessment & Plan: Reviewed this is not Clear Coat Sprayer in nature and recommended she follow up [...] appears to be MSK related and not supply chain assistant related. Right hip pain 04/03/2017 Osteoarthritis of hip 04/22/2012 Overview (05/04/2024): Osteoarthritis of hip - 715.15 Encounters Date Type Department Care Team Description 04/09/2025 Results [facility] [address] [place] [address] Ria Bernstein NP 04/03/2025 Telephone Bariatric Surgery - [address] [phone] Nick Morales MD 03/13/2025 1:00 PM EDT Nutrition Bariatric Surgery [address] [phone] Class 1 obesity with serious comorbidity and body mass index (BMI) of 34.0 to 34.9 in adult, unspecified obesity type (Primary Dx) 02/06/2025 1:00 PM EDT Nutrition Bariatric Surgery [address] [phone] Class 2 severe obesity with serious comorbidity and body mass index (BMI) of 35.0 to 35.9 in adult, unspecified obesity type (CMS/HCC V24, CMS/HCC V28) (Primary Dx) from Last 3 Months Immunizations Immunization Administration Dates Next Due Influenza Quadrivalent, 0.5m [...] HISTORICAL HIP REPLACEMENT BREAST REDUCTION 1999 PROCEDURE: [place] BREAST REDUCTION OTHER SURGICAL HISTORY 07/11/2017 PROCEDURE: [place] ENDOSCOPY UPPER SMALL INTESTINE; COMMENT: Biopsy c/w [...] disease) T2DM (type 2 diabetes mellit us) ([facility] V24, [facility] V28) DX:T2DM (type 2 diabetes christina litus) ([facility]) Family History Medical History Relation Name Comments [...] - Inhaled Oxygen Concentration - - Weight 80.3 kg (177 lb) 03/13/2025 1:03 PM EDT Height 152.4 cm (5') 12/27/2024 1:06 PM EDT Body Mass Index 34.57 12/27/2024 1:06 PM EDT Plan of Treatment Upcoming Encounters Date Type Department Care Team (Late st Contact Info) Description 04/27/2025 8:15 AM EDT Office Visit Bariatric Surgery - [place] [address] [phone] Nick Morales MD [address] [place] [address] 05/30/2025 12:30 PM EST Nutrition Bariatric Surgery - [place] [address] [phone] Selma Ivey, NILTON [address] [phone] 08/16/2025 1:15 PM EST Office Visit Internal Medicine - [address] [phone] Ria Bernstein NP [address] [place] [address] Health Maintenance Due Date Last Done Comments Breast Cancer Screening 1965 Colorectal Cancer Screening: Colonoscopy 1963 Hepatitis A Vaccines (1 of 2 - Risk 2-dose series) 1982 RSV Immunization Adult Patients (1 - Risk 50-74 years 1-dose series) 2013 Pneumococcal Vaccine: 50+ Years (2 of 2 - PCV) 01/04/2016 01/03/2015, 11/03/2009, 05/13/2008 HIV Screening 06/14/2022 Hepatitis C Screening 06/14/2022 Medicare Annual Wellness Visit 06/14/2022 Social Influencers of Health Screening 06/14/2022 Hepatitis B Vaccines (1 of 3 - Risk 3-dose series) 2023 Depression Screening 07/06/2024 Hypertension/CHF/CAD Annual BMP Blood Test 12/15/2025 12/15/2024, 05/20/2024, 07/30/2023 Cervical Cancer Screening: HPV 01/13/2028 01/12/2023 DTaP,Tdap,and Td Vaccines (4 - Td or Tdap) 11/14/2028 11/14/2018, 06/12/2014, 03/16/2008 Cholesterol Screening (Lipid Panel) 12/15/2029 12/15/2024 COVID-19 Vaccine Completed 03/30/2025, 05/2024, 04/02/2022, Additional history exists Influenza Vaccine Completed 03/30/2025, , 03/16/2024, Additional history exists Zoster Vaccines Completed 03/30/2025, 11/03/2017 HIB Vaccines Aged Out No longer eligi [...] Procedure Name Priority Date/Time Associated Diagnosis Comments CBC WITH AUTO DIFFERENTIAL Routine 04/07/2025 12:30 PM EDT Iron deficiency anemia, unspecified iron deficiency anemia type CBC AND DIFFERENTIAL Routine 04/07/2025 12:30 PM EDT Iron deficiency anemia, unspecified iron deficiency anemia type IRON AND TIBC Routine 04/07/2025 12:30 PM EDT Iron deficiency anemia, unspecified iron deficiency anemia type FERRITIN Routine 04/07/2025 12:30 PM EDT Iron deficiency anemia, unspecified iron deficiency anemia type COMPREHENSIVE METABOLIC PANEL Routine 12/15/2024 3:37 PM EDT Class 2 severe obesity due to excess calories with serious comorbidity and body mass index (BMI) of 35.0 to 35.9 in adult (CMS/HCC V24, CMS/HCC V28) LIPID PANEL WITH REFLEX TO DIRECT LDL Routine 12/15/2024 3:37 PM EDT Class 2 severe obesity due to excess calories with serious comorbidity and body mass index (BMI) of 35.0 to 35.9 in adult (CMS/HCC V24, CMS/HCC V28) HM HPV Routine 01/12/2023 from Last 3 Months or Most Recently Relevant to Health Maintenance Results * (ABNORMAL) CBC auto differential (04/07/2025 12:30 PM EDT) [facility] WBC 10.0 4.8 - 10.8 K/mcL LAB HEMETOLOGY METHOD 04/07/2025 2:22 PM EDT [facility] RBC 4.10 3.80 - 4.80 M/mcL LAB HEMETOLOGY METHOD 04/07/2025 2:22 PM EDT [facility] Hemoglobin 11.4(L) 11.5 - 16.0 g/dL LAB HEMETOLOGY METHOD 04/07/2025 2:22 PM EDT [facility] Hematocrit 36.2 35.0 - 47.0 % LAB HEMETOLOGY METHOD 04/07/2025 2:[address] [facility] MCV 88.3 79.0 - 98.0 FL LAB HEMETOLOGY METHOD 04/07/2025 2:[address] [facility] MCH 27.8 27.0 - 32.0 pcg LAB HEMETOLOGY METHOD 04/07/2025 2:[address] [facility] MCHC 31.5(L) 32.0 - 37.0 g/dL LAB HEMETOLOGY METHOD 04/07/2025 2:[address] [facility] RDW 13.9 11.0 - 15.0 % LAB HEMETOLOGY METHOD 04/07/2025 2:[address] [facility] Platelets 250 130 - 400 K/mcL LAB HEMETOLOGY METHOD 04/07/2025 2:[address] [facility] MPV 11.7(H) 7.0 - 11.0 FL LAB HEMETOLOGY METHOD 04/07/2025 2:[address] [facility] NRBC 0.0 <1.0 % LAB HEMETOLOGY METHOD 04/07/2025 2:[address] [facility] NRBC Absolute 0.00 <0.10 K/mcL LAB HEMETOLOGY METHOD 04/07/2025 2:[address] [facility] Neutrophils Relative 61.1 % LAB HEMETOLOGY METHOD 04/07/2025 2:[address] [facility] Lymphocytes Relative 30.0 % LAB HEMETOLOGY METHOD 04/07/2025 2:[address] [facility] Monocytes Relative 6.8 % LAB HEMETOLOGY METHOD 04/07/2025 2:[address] [facility] Eosinophils Relative 1.1 % LAB HEMETOLOGY METHOD 04/07/2025 2:[address] [facility] Basophils Relative 0.6 % LAB HEMETOLOGY METHOD 04/07/2025 2:22 PM EDT [facility] Immature Granulocytes Relative 0.4 % LAB HEMETOLOGY METHOD 04/07/2025 2:22 PM EDT [facility] Neutrophils Absolute 6.09 1.50 - 7.00 K/mcL LAB HEMETOLOGY METHOD 04/07/2025 2:22 PM EDT [facility] Lymphocytes Absolute 2.99 1.00 - 5.00 K/mcL LAB HEMETOLOGY METHOD 04/07/2025 2:22 PM EDT [facility] Monocytes Absolute 0.68 0.20 - 1.00 K/mcL LAB HEMETOLOGY METHOD 04/07/2025 2:22 PM EDT [facility] Eosinophils Absolute 0.11 0.00 - 0.50 K/mcL LAB HEMETOLOGY METHOD 04/07/2025 2:22 PM EDT [facility] Basophils Absolute 0.06 0.00 - 0.20 K/mcL LAB HEMETOLOGY METHOD 04/07/2025 2:22 PM EDT [facility] Immature Granulocytes Absolute 0.04(H) 0.00 - 0.03 K/mcL LAB HEMETOLOGY METHOD 04/07/2025 2:22 PM EDT [facility] Blood Venous blood specimen / Unknown Venipuncture / Unknown 04/07/2025 12:30 PM EDT 04/07/2025 12:30 PM EDT us Ria Bernstein NP LAB BLOOD ORDERABLES Final Resul t [facility] [address] [place] [address], * Iron and TIBC (04/07/2025 12:30 PM EDT) [facility] Iron 56 40 - 150 mcg/dL LAB CHEMISTRY METHOD 04/07/2025 5:37 PM EDT [facility] TIBC 350 250 - 450 mcg/dL LAB CHEMISTRY METHOD 04/07/2025 5:37 PM EDT [facility] Iron Saturation 16 15 - 50 % LAB CHEMISTRY METHOD 04/07/2025 5:37 PM EDT [facility] Blood Venous blood specimen / Unknown Venipuncture / Unknown 04/07/2025 12:30 PM EDT 04/07/2025 12:30 PM EDT us Ria Bernstein NP LAB BLOOD ORDERABLES Final Resul t Performing Organization Address City/[facility]/ZIP Co de Phone Number [facility] [address] [place] [address], [place] [phone] * Ferritin (04/07/2025 12:30 PM EDT) Ferritin 77 8 - 252 ng/mL LAB CHEMISTRY METHOD 04/07/2025 5:37 PM EDT [facility] Blood Venous blood specimen / Unknown Venipuncture / Unknown 04/07/2025 12:30 PM EDT 04/07/2025 12:30 PM EDT us Ria Bernstein NP LAB BLOOD ORDERABLES Final Resul t Performing Organization Address City/[facility]/ZIP Co de Phone Number [facility] [address] [place] [address], [place] [phone] * (ABNORMAL) Lipid panel with reflex to direct LDL (12/15/2024 3:37 PM EDT) Cholesterol 138 0 - 200 mg/dL LAB CHEMISTRY METHOD 12/15/2024 7:04 PM EDT [facility] Triglycerides 251(H) 0 - 150 mg/dL LAB CHEMISTRY METHOD 12/15/2024 7:04 PM EDT [facility] HDL 37(L) >=40 mg/dL LAB CHEMISTRY METHOD 12/15/2024 7:04 PM EDT [facility] LDL Calculated 51 0 - 100 mg/dL LAB CHEMISTRY METHOD 12/15/2024 7:04 PM EDT [facility] VLDL Cholesterol Abdias 50.2 mg/dL LAB CHEMISTRY METHOD 12/15/2024 7:04 PM T [facility] Non HDL Chol. (LDL+VLDL) 101 <145 mg/dL LAB CHEMISTRY METHOD 12/15/2024 7:04 PM EDT [facility] Chol/HDL Ratio 3.7 0.0 - 4.4 LAB CHEMISTRY METHOD 12/15/2024 7:04 PM EDT [facility] Blood Venous blood specimen / Unknown Venipuncture / Unknown 12/15/2024 3:37 PM EDT 12/15/2024 3:37 PM EDT us Nick Morales MD LAB BLOOD ORDERABLES Final R esult [facility] [address] [place] [address], * (ABNORMAL) Comprehensive metabolic panel (12/15/2024 3:37 PM EDT) Sodium 140 133 - 145 mmol/L LAB CHEMISTRY METHOD 12/15/2024 7:[address] [facility] Potassium 3.6 3.5 - 5.5 mmol/L LAB CHEMISTRY METHOD 12/15/2024 7:[address] [facility] Chloride 104 96 - 110 mmol/L LAB CHEMISTRY METHOD 12/15/2024 7:[address] [facility] CO2 28 21 - 32 mmol/L LAB CHEMISTRY METHOD 12/15/2024 7:[address] [facility] Anion Gap 8 3 - 11 LAB CHEMISTRY METHOD 12/15/2024 7:[address] [facility] Glucose 111(H) 70 - 100 mg/dL LAB CHEMISTRY METHOD 12/15/2024 7:[address] [facility] BUN 16 5 - 25 mg/dL LAB CHEMISTRY METHOD 12/15/2024 7:[address] [facility] Creatinine 0.84 0.50 - 1.10 mg/dL LAB CHEMISTRY METHOD 12/15/2024 7:[address] [facility] eGFR 79 >=60 mL/min/1. 73m2 LAB CHEMISTRY METHOD 12/15/2024 7:[address] [facility] Comment:Calculation based on the Chronic Kidney Disease Epidemiology Collaboration (CKD-EPI) equation refit without adjustment for race. BUN/Creatinine Ratio 19.0 LAB CHEMISTRY METHOD 12/15/2024 7:[address] [facility] Calcium 9.2 8.5 - 10.5 mg/dL LAB CHEMISTRY METHOD 12/15/2024 7:[address] [facility] AST (SGOT) 25 10 - 42 unit/L LAB CHEMISTRY METHOD 12/15/2024 7:04 [facility] ALT (SGPT) 54 10 - 60 unit/L LAB CHEMISTRY METHOD 12/15/2024 7:[address] [facility] Alkaline Phosphatase 96 42 - 121 unit/L LAB CHEMISTRY METHOD 12/15/2024 7:[address] [facility] Total Protein 6.9 6.0 - 8.0 g/dL LAB CHEMISTRY METHOD 12/15/2024 7:[address] [facility] Albumin 3.8 3.2 - 5.0 g/dL LAB CHEMISTRY METHOD 12/15/2024 7:[address] [facility] Total Bilirubin 0.2 0.0 - 1.4 mg/dL LAB CHEMISTRY METHOD 12/15/2024 7:[address] [facility] Blood Venous blood specimen / Unknown Venipuncture / Unknown 12/15/2024 3:37 PM EDT 12/15/2024 3:37 PM EDT us Nick Morales MD LAB BLOOD ORDERABLES Final R esult [facility] [address] [place] [address], [place] [phone] * Cervical Cancer Screening: HPV (01/12/2023) Pathologist [facility] Cervical Cancer Screening: HPV negative, abstracted us Historical Provider HEALTH MAINTENANCE Final Result from Last 3 Months or Most Recently Relevant to Health Maintenance [place] [id number] Care Teams Leg Man Relationship Specialty Start Date End Date Mary Traylor DO [address] [place] [address] PCP - General 02/05/23
== END 2025-04-18 15:58 | disposition home or self-care (01) ==
LOC: HO.HSMS 14:59
PROVIDERS: PCP Internal Medicine; Visit Provider Psychiatry & Neurology Neurology
DX: G43.E19 Chronic migraine with aura, intractable, without status migrainosus (principal)
CPT/HCPCS: 64615

== ENCOUNTER → 2025-04-18 14:58 | Outpatient (BNVA) | payer MEDICARE, MEDICAID, SELFPAY | PROVIDERS: PCP Internal Medicine; Visit Provider Psychiatry & Neurology Neurology | DX: G43.E19 Chronic migraine with aura, intractable, without status migrainosus (principal) | CPT/HCPCS: 64615; 99211; J0585 ==